=== PATIENT | female | born 1935 | race Caucasian/White ===

== ENCOUNTER 2016-05-04 13:31 | Emergency (ER) | payer OTHER ==
[2016-05-04 13:40] VITALS: BP 128/53; TEMP 99.1; BMI 36.0
--- NOTE | 2016-05-04 14:26 | ED.PDOC ---
General ED Provider: Dr. ARNIE GONSALEZ JR Chief Complaint: Respiratory Complaint Stated Complaint: c/o cough past 2 weeks--was on antibiotics better short time then returned--now has ear pain--no fever--uses o2 all the time and sleeps with bipap at nite-[ End ]99.0 90 20 91% 128/53 05/21[ End ] Time Seen by Physician: 14:25 Mode of Arrival: Wheelchair Information Source: Patient, Family Exam Limitations: No limitations Primary Care Provider: WINSTON PRUETT Nursing and Triage Documentation Reviewed and Agree: No Review of Systems - Review Of Systems Constitutional: Reports: Malaise, Weakness Eyes: Reports: No symptoms Ears, Nose, Mouth, Throat: Reports: Ear pain Respiratory: Reports: Cough (yellow productive) Cardiac: Reports: No symptoms GI: Reports: No symptoms : Reports: No symptoms Musculoskeletal: Reports: No symptoms Skin: Reports: No symptoms Neurological: Reports: No symptoms Endocrine: Reports: No symptoms Hematologic/Lymphatic: Reports: No symptoms All Other Systems: Other Past Medical History - Past Medical History Endocrine: Reports: DM 2 Cardiovascular: Reports: CAD, [place] Respiratory: Reports: COPD Hematological: Reports: None Gastrointestinal: Reports: None Genitourinary: Reports: None Neuro/Psych: Reports: None Musculoskeletal: Reports: None Cancer: Reports: None Last Menstrual Period: hysterectomy - Surgical History General Surgical History: Reports: Hysterectomy, Cholecystectomy, Other (-spot taken off rt breast) - Family History Family History: Reports: None - Social History Smoking Status: Former smoker Hx Substance Use: No Alcohol Screening: None Physical Exam - Physical Exam Appearance: Ill-appearing, Obese Ill-appearing: Moderate Pain Distress: Moderate Eyes: ALFRED, EOMI, Conjunctiva clear ENT: Ears normal, Nose normal, Oropharynx normal Neck: Supple Respiratory: Airway patent, Breath sounds equal, Breath sounds diminished, Respirations nonlabored, Rhonchi, Wheezes Cardiovascular: RRR, Pulses normal, No rub, No murmur GI/: Soft, Nontender, No masses, Bowel sounds normal, No Organomegaly Musculoskeletal: Normal strength, ROM intact, No edema, No calf tenderness Skin: Warm, Dry, Normal color Neurological: Sensation intact, Motor intact, Reflexes intact, Cranial nerves intact, Alert, Oriented Psychiatric: Affect appropriate, Mood appropriate Critical Care Note - Critical Care Note Total Time (mins): 0 Course - Course Vital Signs: Temp Pulse Resp BP Pulse Ox 05/04/16 13:32 99.1 F 90 20 128/53 L 91 L Departure - Departure Time of Disposition: 14:39 Disposition: HOME SELF-CARE Discharge Problem: Bronchitis, Chronic obstructive bronchitis Instructions: Emphysema (ED), Acute Bronchitis (ED) Condition: Good Pt referred to PMD for follow-up: Yes Additional Instructions: Bactrim antibiotic until gone Robitussin AC as needed for cough recheck PMD one to two weeks recheck Prescriptions: Sulfamethoxazole/Trimethoprim [Bactrim Ds 800/160 mg] 1 tab PO Q12HR #14 tablet Guaifenesin/Codeine Phosphate [Robitussin AC Syrup] 10 ml PO Q6H PRN #240 ml PRN Reason: Cough Allergies/Adverse Reactions: Allergies Iodinated Contrast Media - Oral and Adverse Reaction (Verified 05/04/16 13:43) Home Medications: Ambulatory Orders Benazepril HCl 20 mg PO DAILY 05/04/16 Clopidogrel Bisulfate [Clopidogrel] 75 mg PO DAILY 05/04/16 Furosemide [Lasix Tab] 40 mg PO QDAC 05/04/16 Gabapentin [Neurontin] 200 mg PO BID 05/04/16 Glyburide [Diabeta] 10 mg PO BID 05/04/16 Guaifenesin/Codeine Phosphate [Robitussin AC Syrup] 10 ml PO Q6H PRN #240 ml Insulin Glargine,Hum.rec.anlog [Lantus] 30 unit SUBCUT QID 05/04/16 Insulin Lispro [Humalog] 12 unit SQ TID 05/04/16 Pantoprazole Sodium [Protonix] 40 mg PO QDAC 05/04/16 Ropinirole HCl [Requip] 3 mg PO BEDTIME 05/04/16 Simvastatin [Zocor] 40 mg PO BEDTIME 05/04/16 Sulfamethoxazole/Trimethoprim [Bactrim Ds 800/160 mg] 1 tab PO Q12HR #14 tablet 05/04/16
== END 2016-05-04 14:53 | disposition home or self-care (01) ==
LOC: ED 13:31
DX: J44.0 Chronic obstructive pulmonary disease with (acute) lower respiratory infection (principal); J20.9 Acute bronchitis, unspecified; E11.9 Type 2 diabetes mellitus without complications; Z99.81 Dependence on supplemental oxygen; Z87.891 Personal history of nicotine dependence; Z79.01 Long term (current) use of anticoagulants; Z79.899 Other long term (current) drug therapy
CPT/HCPCS: 99282

== ENCOUNTER 2016-07-28 11:41 | Inpatient (IN) ==
--- NOTE | 2016-07-28 12:13 | ED.PDOC ---
General ED Provider: Dr. ARNIE GONSALEZ JR Chief Complaint: Weakness Stated Complaint: weak and dizzy -not peeing right - weight loss of 40lbs over past 2 months-O2 2L--bipap at nite--color pale--no distress [End]denies pain-- weak/dizzy--had recent bout of flu with admit(history not correct- seen in ER not admitted)[End]98.2 77 24 97% 128/55 daughter in law notes THAT PATIENT is discussing feeling of and mother before they (new and unusual) patient states not voiding usual amount despite lasix complains of weight loss 40 pounds past 2 monthsER szkog=754 lb may 04 2016 219 lb jul 28 2016. : cough 2 weeks(yellow productive):Ear pain : DM 2 CAD [place] COPD:(-spot rt breast): Emphysema (ED), Acute Bronchitis (ED)[Bactrim ] [Robitussin AC Syrup] Time Seen by Physician: 12:13 Mode of Arrival: Wheelchair Information Source: Patient Exam Limitations: No limitations Primary Care Provider: WINSTON PRUETT Nursing and Triage Documentation Reviewed and Agree: No Review of Systems - Review Of Systems Constitutional: Reports: Malaise, Weakness Eyes: Reports: No symptoms Ears, Nose, Mouth, Throat: Reports: No symptoms Respiratory: Reports: No symptoms, Other (chronic oxygen) Cardiac: Reports: Edema (swellingin ankles left more than right (note exam)wt 214 today at home"I've lost 40 pounds) GI: Reports: No symptoms : Reports: No symptoms Musculoskeletal: Reports: No symptoms Skin: Reports: No symptoms Neurological: Reports: No symptoms Endocrine: Reports: No symptoms Hematologic/Lymphatic: Reports: No symptoms All Other Systems: Other Past Medical History - Past Medical History Endocrine: Reports: DM 2 Cardiovascular: Reports: CAD, [place] Respiratory: Reports: COPD Hematological: Reports: None Gastrointestinal: Reports: None Genitourinary: Reports: None Neuro/Psych: Reports: None Musculoskeletal: Reports: None Cancer: Reports: None Last Menstrual Period: hysterectomy - Surgical History General Surgical History: Reports: Hysterectomy, Cholecystectomy, Other (-spot taken off rt breast) - Family History Family History: Reports: None - Social History Smoking Status: Former smoker Hx Substance Use: No Alcohol Screening: None Physical Exam - Physical Exam Appearance: Well-appearing, Obese Ill-appearing: Mild Pain Distress: Mild Eyes: ALFRED, EOMI, Conjunctiva clear ENT: Ears normal, Nose normal, Oropharynx normal Neck: Supple Respiratory: Airway patent, Breath sounds clear, Breath sounds equal, Respirations nonlabored Cardiovascular: RRR, Pulses normal, No rub, No murmur GI/: Soft, Nontender, No masses, Bowel sounds normal, No Organomegaly Musculoskeletal: Normal strength, ROM intact, No calf tenderness, Edema (trace pedal edema righ noticably more than left) Skin: Warm, Dry, Normal color Neurological: Sensation intact, Motor intact, Reflexes intact, Cranial nerves intact, Alert, Oriented Interpretation - Radiology Interpretation Radiology Interpretation By: Radiologist Radiology Results: Negative Exam Interpreted: Other (LE DOPPLERS) Radiology Interpretation By: Radiologist Radiology Results: Positive Exam Interpreted: CXR (SUSUPICIOUS R BASILAR INFILTRATE DISC WITH DR PRUETT) - EKG Interpretation Time of EKG #1: 12:32 Rate: Normal Rhythm: Sinus ST Segment: Other (lafb) Physician Notification - Case Discussed Physician Notified: DR PRUETT'S OFFICE CALLED Time of Notification: 14:40 Critical Care Note - Critical Care Note Total Time (mins): 0 Course - Course Hematology/Chemistry: 07/28/16 12:40 07/28/16 12:40 Orders, Labs, Meds: Lab Review 07/28/16 07/28/16 07/28/16 12:40 13:19 14:07 WBC 9.57 RBC 3.93 L Hgb 7.1 L Hct 27.7 L MCV 70.5 L MCH 18.1 L MCHC 25.6 L RDW Coeff of Chuy 20.4 H Plt Count 274 Immature Gran % (Auto) 0.4 Neut % (Auto) 68.9 Lymph % (Auto) 21.5 [place] % (Auto) 5.5 Eos % (Auto) 2.7 Baso % (Auto) 1.0 Reticulocyte % (Auto) 2.52 Immature Gran # (Auto) 0.0 Neut # 6.6 Lymph # 2.1 [place] # 0.5 Eos # 0.3 Baso # 0.1 Polychromasia 1+ Poikilocytosis 3+ Microcytosis 3+ Stomatocytes 1+ Schistocytes 1+ RBC Morph Comment Absolute Retic 0.1000 Retic Hgb Equivalent 15.3 D-Dimer (Manual) 1136.71 Sodium 136 Potassium 4.9 Chloride 98 Carbon Dioxide 30 Anion Gap 12.9 BUN 48 H Creatinine 1.90 H Estimated GFR (MDRD) 26.00 BUN/Creatinine Ratio 25.26 Glucose 136 H Calcium 9.2 Iron 15 L TIBC 560 H % Saturation 3 Unsat Iron Binding 545 H Ferritin 7.49 Total Bilirubin 0.34 AST 19 ALT 18 Alkaline Phosphatase 71 Total Creatine Kinase 87 Troponin I 0.0820 B-Natriuretic Peptide 313 H Total Protein 7.8 Albumin 3.8 Globulin 4.0 Albumin/Globulin Ratio 0.95 Vitamin B12 469 Folate 14.3 Procalcitonin < 0.05 Urine Color Yellow Urine Clarity Clear Urine pH 5.5 Ur Specific [place] <=1.005 Urine Protein Negative Urine Glucose (UA) Negative Urine Ketones Negative Urine Blood Negative Urine Nitrite Negative Urine Bilirubin Negative Urine Urobilinogen 0.2 Ur Leukocyte Esterase Negative Stl Occult Blood (IFOB) Negative Stool Occult Blood #2 No specimen received Stool Occult Blood #3 No specimen received Orders Category Date Time Status ADMIT PATIENT INPATIENT .TO MEDSURG (MONITORED BED) ADMISSION 07/28/16 16: 37 Active EKG-(ED ONLY) Stat CARDIO 07/28/16 12:22 Completed NEBULIZER TREATMENT Routine CARDIO 07/28/16 16:46 Ordered NEBULIZER TREATMENT Stat CARDIO 07/28/16 13:18 Completed OXYGEN Routine CARDIO 07/28/16 16:39 Ordered ACTIVITY .Early Mobilization for VTE Prevention CARE 07/28/16 16:37 Active BLOOD GLUCOSE MONITORING 0630,1100,1700,2100 CARE 07/28/16 16:54 Ordered GIVE HS SNACK 2100 CARE 07/28/16 16:44 Active INTAKE & OUTPUT Q8HR CARE 07/28/16 16:38 Active INTAKE & OUTPUT Q8HR CARE 07/28/16 16:43 Active NPO REMINDER: IMAGING ONCE CARE 07/28/16 14:18 Completed TELEMETRY MONITORING TELE CARE 07/28/16 16:38 Active VITAL SIGNS Q4HR CARE 07/28/16 16:37 Active ADA 1800 SHAHEEN. DIET DIETARY 07/28/16 Dinner Ordered CARDIAC DIET DIETARY 07/28/16 Dinner Ordered HS SNACK DIETARY 07/28/16 Dinner Ordered ED IV/MEDIPORT/POWERPORT .ONCE EMERGENCY 07/28/16 12:22 Active B-TYPE NATRIURETIC PEPTIDE Stat LAB 07/28/16 12:40 Completed BLOOD CULTURE Stat LAB 07/28/16 12:40 Received CBC W/ AUTO DIFF DAILY@0600 LAB 07/29/16 06:00 Ordered CBC W/ AUTO DIFF DAILY@0600 LAB 07/30/16 06:00 Ordered CBC W/ AUTO DIFF DAILY@0600 LAB 07/31/16 06:00 Ordered CBC W/ AUTO DIFF DAILY@0600 LAB 08/01/16 06:00 Ordered CBC W/ AUTO DIFF DAILY@0600 LAB 08/02/16 06:00 Ordered CBC W/ AUTO DIFF DAILY@0600 LAB 08/03/16 06:00 Ordered CBC W/ AUTO DIFF DAILY@0600 LAB 08/04/16 06:00 Ordered CBC W/ AUTO DIFF DAILY@0600 LAB 08/05/16 06:00 Ordered CBC W/ AUTO DIFF DAILY@0600 LAB 08/06/16 06:00 Ordered CBC W/ AUTO DIFF DAILY@0600 LAB 08/07/16 06:00 Ordered CBC W/ AUTO DIFF DAILY@0600 LAB 08/08/16 06:00 Ordered CBC W/ AUTO DIFF DAILY@0600 LAB 08/09/16 06:00 Ordered CBC W/ AUTO DIFF DAILY@0600 LAB 08/10/16 06:00 Ordered CBC W/ AUTO DIFF DAILY@0600 LAB 08/11/16 06:00 Ordered CBC W/ AUTO DIFF DAILY@0600 LAB 08/12/16 06:00 Ordered CBC W/ AUTO DIFF DAILY@0600 LAB 08/13/16 06:00 Ordered CBC W/ AUTO DIFF DAILY@0600 LAB 08/14/16 06:00 Ordered CBC W/ AUTO DIFF DAILY@0600 LAB 08/15/16 06:00 Ordered CBC W/ AUTO DIFF DAILY@0600 LAB 08/16/16 06:00 Ordered CBC W/ AUTO DIFF DAILY@0600 LAB 08/17/16 06:00 Ordered CBC W/ AUTO DIFF Stat LAB 07/28/16 12:40 Completed COMPREHENSIVE METABOLIC PANEL DAILY@0600 LAB 07/29/16 06:00 Ordered COMPREHENSIVE METABOLIC PANEL DAILY@0600 LAB 07/30/16 06:00 Ordered COMPREHENSIVE METABOLIC PANEL DAILY@0600 LAB 07/31/16 06:00 Ordered COMPREHENSIVE METABOLIC PANEL DAILY@0600 LAB 08/01/16 06:00 Ordered COMPREHENSIVE METABOLIC PANEL DAILY@0600 LAB 08/02/16 06:00 Ordered COMPREHENSIVE METABOLIC PANEL DAILY@0600 LAB 08/03/16 06:00 Ordered COMPREHENSIVE METABOLIC PANEL DAILY@0600 LAB 08/04/16 06:00 Ordered COMPREHENSIVE METABOLIC PANEL DAILY@0600 LAB 08/05/16 06:00 Ordered COMPREHENSIVE METABOLIC PANEL DAILY@0600 LAB 08/06/16 06:00 Ordered COMPREHENSIVE METABOLIC PANEL DAILY@0600 LAB 08/07/16 06:00 Ordered COMPREHENSIVE METABOLIC PANEL DAILY@0600 LAB 08/08/16 06:00 Ordered COMPREHENSIVE METABOLIC PANEL DAILY@0600 LAB 08/09/16 06:00 Ordered COMPREHENSIVE METABOLIC PANEL DAILY@0600 LAB 08/10/16 06:00 Ordered COMPREHENSIVE METABOLIC PANEL DAILY@0600 LAB 08/11/16 06:00 Ordered COMPREHENSIVE METABOLIC PANEL DAILY@0600 LAB 08/12/16 06:00 Ordered COMPREHENSIVE METABOLIC PANEL DAILY@0600 LAB 08/13/16 06:00 Ordered COMPREHENSIVE METABOLIC PANEL DAILY@0600 LAB 08/14/16 06:00 Ordered COMPREHENSIVE METABOLIC PANEL DAILY@0600 LAB 08/15/16 06:00 Ordered COMPREHENSIVE METABOLIC PANEL DAILY@0600 LAB 08/16/16 06:00 Ordered COMPREHENSIVE METABOLIC PANEL DAILY@0600 LAB 08/17/16 06:00 Ordered COMPREHENSIVE METABOLIC PANEL Stat LAB 07/28/16 12:40 Completed CREATINE KINASE Stat LAB 07/28/16 12:40 Completed D-DIMER Stat LAB 07/28/16 12:40 Completed FERRITIN Routine LAB 07/28/16 12:40 Completed FOLATE Routine LAB 07/28/16 12:40 Completed IRON AND TIBC Routine LAB 07/28/16 12:40 Completed OCCULT BLOOD, STOOL Stat LAB 07/28/16 14:07 Completed PRBC Transfusion [PACKED CELLS] Stat LAB 07/28/16 16:47 Ordered PROCALCITONIN Stat LAB 07/28/16 12:40 Completed RBC MORPHOLOGY Stat LAB 07/28/16 12:40 Completed RETIC COUNT Routine LAB 07/28/16 12:40 Completed TRANSFERRIN Routine LAB 07/28/16 12:40 Received TROPONIN I Stat LAB 07/28/16 12:40 Completed TYPE AND SCREEN Stat LAB 07/28/16 16:47 Ordered UA [URINALYSIS C & S IF INDICATED] Stat LAB 07/28/16 13:19 Completed VITAMIN B12 Routine LAB 07/28/16 12:40 Completed 0.9 % Sodium Chloride [Saline Flush] MEDS 07/28/16 12:22 Active 1 syr IVF PRN PRN Albuterol Sulfate 0.083% Neb [Albuterol 0.083% Neb] MEDS 07/28/16 13:18 Discontinued 1 vial NEB ONCE STA Insulin Regular, Human [Humulin R] MEDS 07/28/16 16:53 Ordered See Protocol SUBCUT PRN PRN Ipratropium/Albuterol Neb [Duoneb] MEDS 07/28/16 18:00 Ordered 1 vial NEB RTQ4H Methylprednisolone Sod Succ/Pf [Solu-Medrol 125 mg] 75 MEDS 07/28/16 17:00 Ordered mg 0.9 % Sodium Chloride [Sodium Chloride] 50 ml IV Q12HR Sodium Chloride 0.9% [Sodium Chloride] 1,000 ml MEDS 07/28/16 17:00 Active IV 35 mls/hr Sodium Chloride 0.9% [Sodium Chloride] 250 ml MEDS 07/28/16 12:29 Discontinued IV BOLUS RESUSCITATION STATUS Routine OTHERS 07/28/16 16:37 Ordered CHEST, 1V AP ONLY Stat RADS 07/28/16 12:22 Completed ULTRASOUND VENOUS SCAN JAVAN LEGS [U/S VENOUS SCAN JAVAN RADS 07/28/16 15:14 Completed LEGS] Stat Medications Generic Name Dose Route Start Last Admin Trade Name Freq PRN Reason Stop Dose Admin Albuterol/Ipratropium 1 vial 07/28/16 18:00 Duoneb NEB RTQ4H HAROON Sodium Chloride 1,000 mls @ 35 mls/hr 07/28/16 17:00 Sodium Chloride IV .[id number] HAROON Methylprednisolone Sodium 51.2 mls @ 100 mls/hr 07/28/16 17:00 Succinate 75 mg/ Sodium IV Chloride Q12HR HAROON Insulin Human Regular 0 unit 07/28/16 16:53 Humulin R SUBCUT PRN PRN Hyperglycemica Protocol Sodium Chloride 1 syr 07/28/16 12:22 07/28/16 12:47 Saline Flush IVF 1 syr PRN PRN Administration To flush IV Discontinued Medications Generic Name Dose Route Start Last Admin Trade Name Freq PRN Reason Stop Dose Admin Albuterol Sulfate 1 vial 07/28/16 13:18 07/28/16 13:28 Albuterol 0.083% Neb NEB 07/28/16 13:19 1 vial ONCE STA Administration Sodium Chloride 250 mls @ 1,000 mls/hr 07/28/16 12:29 07/28/16 12:46 Sodium Chloride IV 07/28/16 12:43 1,000 mls/hr BOLUS STA Administration Vital Signs: Temp Pulse Resp BP Pulse Ox 07/28/16 11:55 98.2 F 77 24 128/55 L 97 ANNIE Risk Score ANNIE Risk Score: Risk Score Odds of by 30D 0 0.1 (0.1-0.2) 1 0.3 (0.2-0.3) 2 0.4 (0.3-0.5) 3 0.7 (0.6-0.9) 4 1.2 (1.0-1.5) 5 2.2 (1.9-2.6) 6 3.0 (2.5-3.6) 7 4.8 (3.8-6.1) Departure - Departure Time of Disposition: 14:40 Disposition: ADMITTED INPATIENT Discharge Problem: Respiratory failure with hypoxia Qualifiers: Chronicity: acute on chronic Qualifier Code: (J96.21) Acute and chronic respiratory failure with hypoxia Anemia Qualifiers: Anemia type: iron deficiency Iron deficiency anemia type: unspecified iron deficiency Qualifier Code: (D50.9) Iron deficiency anemia, unspecified Condition: Fair Pt referred to PMD for follow-up: Yes Allergies/Adverse Reactions: Allergies diazepam [From Valium] Adverse Reaction (Verified 07/28/16 12:02) Iodinated Contrast Media - Oral and Adverse Reaction (Verified 07/28/16 12:02) Home Medications: Ambulatory Orders Clopidogrel Bisulfate [Clopidogrel] 75 mg PO DAILY 05/04/16 Furosemide [Lasix Tab] 40 mg PO QDAC 05/04/16 Gabapentin [Neurontin] 200 mg PO BID 05/04/16 Glyburide [Diabeta] 10 mg PO BID 05/04/16 Insulin Glargine,Hum.rec.anlog [Lantus] 30 unit SUBCUT QID 05/04/16 Insulin Lispro [Humalog] 12 unit SQ TID 05/04/16 Pantoprazole Sodium [Protonix] 40 mg PO QDAC 05/04/16 RX: Benazepril HCl 20 mg PO DAILY 05/04/16 Ropinirole HCl [Requip] 3 mg PO BEDTIME 05/04/16 Simvastatin [Zocor] 40 mg PO BEDTIME 05/04/16
[2016-07-28] MEDS ORDERED: SODIUM CHLORIDE 250 ML IV STA (12:29)
[2016-07-28 12:45] LABS: BASOPHILS # (AUTO) 0.1 K/uL (0-0.2); EOSINOPHILS # (AUTO) 0.3 K/ul (0.0-0.7); EOSINOPHILS % (AUTO) 2.7 % (0.0-7.0); HEMATOCRIT 27.7 % (37.0-47.0); HEMOGLOBIN 7.1 g/dl (12.0-16.0); IMMATURE GRANULOCYTE % (AUTO) 0.4 % (0.0-5.0); LYMPHOCYTES # (AUTO) 2.1 K/uL (0.60-3.4); LYMPHOCYTES % (AUTO) 21.5 (10.0-50.0); MEAN CORPUSCULAR HEMOGLOBIN 18.1 pg (27.0-31.0); MEAN CORPUSCULAR HGB CONC 25.6 (31.8-35.4); MEAN CORPUSCULAR VOLUME 70.5 fl (81.0-99.0); MONOCYTES # (AUTO) 0.5 K/uL (0.4-2.0); MONOCYTES % (AUTO) 5.5 (0-10); NEUTROPHILS # (AUTO) 6.6 K/ul (2.0-6.9); NEUTROPHILS % (AUTO) 68.9; PLATELET COUNT 274 10^3/uL (140-440); RED BLOOD COUNT 3.93 10^6/ul (4.20-5.40); WHITE BLOOD COUNT 9.57 K/ul (4.6-10.2)
[2016-07-28 13:01] LABS: HYPOCHROMASIA 3+ (NOT PRESENT); POIKILOCYTOSIS 3+ (NOT PRESENT); POLYCHROMASIA 1+ (NOT PRESENT)
--- NOTE | 2016-07-28 13:01 | DI ---
EXAM: Chest one view HISTORY: Chest pain COMPARISON: 09/16/2008 TECHNIQUE: Single view of the chest was performed FINDINGS: Probable right basilar infiltrate, though poorly evaluated on portable radiograph. There is no pleural effusion or pneumothorax. The heart is top normal in size. The mediastinal contour is normal. There are no acute abnormalities of the bones. Cervical spinal fusion hardware. IMPRESSION: Probable right basilar infiltrate is suspicious for pneumonia, though poorly evaluated on portable radiograph. Consider correlation with PA and lateral chest radiographs. Recommend radiog raphic follow-up to resolution. Report faxed at time of dictation.
[2016-07-28 13:02] LABS: ANISOCYTOSIS 3+ (NOT PRESENT); MICROCYTOSIS 3+ (NOT PRESENT); SCHISTOCYTES 1+ (NOT PRESENT); STOMATOCYTES 1+ (NOT PRESENT)
[2016-07-28 13:08] LABS: ALBUMIN 3.8 g/dL (3.4-5.0); ALBUMIN/GLOBULIN RATIO 0.95; ANION GAP 12.9; BILIRUBIN,TOTAL 0.34 mg/dL (0.00-1.20); BUN/CREATININE RATIO 25.26; CALCIUM 9.2 mg/dL (8.2-10.2); CREATININE 1.9 mg/dL (0.60-1.30); POTASSIUM 4.9 mmol/L (3.5-5.10); TOTAL PROTEIN 7.8 g/dL (5.8-8.1); TROPONIN I 0.082 ng/ml (0.0000-0.4000)
[2016-07-28] MEDS ORDERED: ALBUTEROL 0.083% NEB NEB STA (13:18)
[2016-07-28 13:25] LABS: BILIRUBIN,URINE Negative (NEGATIVE); KETONES,URINE Negative (NEGATIVE); LEUKOCYTE ESTERASE ,URINE Negative (NEGATIVE); NITRITE,URINE Negative (NEGATIVE); PH,URINE 5.5 (5-9); PROTEIN,URINE Negative (NEGATIVE); URINE, BLOOD Negative (NEGATIVE)
[2016-07-28 13:31] LABS: ADD URINE MICROSCOPIC NO
[2016-07-28 14:16] LABS: OCCULT BLOOD INTERNAL QC 1 INTERNAL QC VALID; OCCULT BLOOD INTERNAL QC 2 INTERNAL QC VALID; OCCULT BLOOD INTERNAL QC 3 INTERNAL QC VALID; OCCULT BLOOD SAMPLE 1 NEGATIVE (NEGATIVE); OCCULT BLOOD SAMPLE 2 NO SPECIMEN RECEIVED (NEGATIVE); OCCULT BLOOD SAMPLE 3 NO SPECIMEN RECEIVED (NEGATIVE)
[2016-07-28 15:22] LABS: RETICULOCYTE % 2.52 %
[2016-07-28 16:26] LABS: FERRITIN 7.49 ng/mL (4.63-204.00); FOLATE 14.3 ng/mL (3.1-20.5)
--- NOTE | 2016-07-28 16:49 | US ---
EXAM: Bilateral lower extremity venous doppler. HISTORY: Bilateral lower extremity edema. COMPARISON: None available. TECHNIQUE: Multiple grayscale and color doppler images were obtained. FINDINGS: There is normal flow, compressibility and augmentation of flow within the right and left common femoral, greater saphenous, profunda, femoral, popliteal, posterior tibial, anterior tibial a nd peroneal veins. IMPRESSION: No evidence for right or left lower extremity deep vein thrombosis at the levels examined.
[2016-07-28] MEDS ORDERED: SODIUM CHLORIDE 1,000 ML IV SCH (17:00)
[2016-07-28] MEDS: DUONEB NEB SCH ×2 (17:02→22:35)
[2016-07-28 17:59] VITALS: BMI 35.5
[2016-07-28] MEDS: SOLU MEDROL IV SCH ×2 (19:52→23:24)
[2016-07-28] MEDS: SODIUM CHLORIDE IV SCH ×2 (19:52→23:24)
[2016-07-28] MEDS ORDERED: SOLU-MEDROL 125 MG ONE (21:18)
[2016-07-29] MEDS: DUONEB NEB SCH ×5 (01:24→17:05)
[2016-07-29 05:42] LABS: BASOPHILS # (AUTO) 0.1 K/uL (0-0.2); BASOPHILS % (AUTO) 0.5 % (0.0-3.0); HEMATOCRIT 32.4 % (37.0-47.0); IMMATURE GRANULOCYTE % (AUTO) 1.1 % (0.0-5.0); LYMPHOCYTES # (AUTO) 0.6 K/uL (0.60-3.4); MEAN CORPUSCULAR HEMOGLOBIN 20.4 pg (27.0-31.0); MEAN CORPUSCULAR HGB CONC 27.8 (31.8-35.4); MEAN CORPUSCULAR VOLUME 73.5 fl (81.0-99.0); MONOCYTES # (AUTO) 0.1 K/uL (0.4-2.0); MONOCYTES % (AUTO) 0.8 (0-10); NEUTROPHILS # (AUTO) 11.7 K/ul (2.0-6.9); NEUTROPHILS % (AUTO) 92.6; PLATELET COUNT 263 10^3/uL (140-440); RED BLOOD COUNT 4.41 10^6/ul (4.20-5.40); WHITE BLOOD COUNT 12.62 K/ul (4.6-10.2)
[2016-07-29 06:01] LABS: ALBUMIN 3.7 g/dL (3.4-5.0); ALBUMIN/GLOBULIN RATIO 0.95; ANION GAP 14.5; BILIRUBIN,TOTAL 0.61 mg/dL (0.00-1.20); BUN/CREATININE RATIO 26.42; CALCIUM 9.1 mg/dL (8.2-10.2); CREATININE 1.4 mg/dL (0.60-1.30); POTASSIUM 5.5 mmol/L (3.5-5.10); TOTAL PROTEIN 7.6 g/dL (5.8-8.1)
[2016-07-29] MEDS: HUMULIN R SUBCUT PRN ×3 (06:08→17:31)
[2016-07-29] MEDS ORDERED: PROTONIX PO STA (08:18)
[2016-07-29] MEDS ORDERED: LASIX PO STA (08:18)
[2016-07-29] MEDS ORDERED: LASIX TAB PO STA (08:31)
[2016-07-29] MEDS ORDERED: DIABETA PO SCH ×2 (09:00→17:30)
[2016-07-29] MEDS ORDERED: NON-FORMULARY MEDICATION (Benazepril Hcl [Benazepril Hcl] 20 MG) PO SCH (09:00)
[2016-07-29] MEDS ORDERED: LOTENSIN PO SCH (09:00)
[2016-07-29] MEDS ORDERED: HUMALOG SUBCUT SCH (09:00)
[2016-07-29] MEDS ORDERED: NEURONTIN PO SCH (09:00)
[2016-07-29] MEDS ORDERED: PLAVIX PO SCH (09:00)
[2016-07-29] MEDS: LANTUS SUBCUT SCH ×3 (09:25→17:33)
[2016-07-29] MEDS: SOLU MEDROL IV SCH (09:29)
[2016-07-29] MEDS: SODIUM CHLORIDE IV SCH (09:29)
--- NOTE | 2016-07-29 10:30 | DI ---
EXAM: Two x-rays of the chest. Comparison: 07/28/2016. Reason for exam: Short of air, wheezing. FINDINGS: Similar appearing air space opacity in the right lung base with blunting of both costophr enic angles. The cardiac silhouette is unchanged. No pneumothorax. Operative changes are seen aft er ACDF. Impression: Right lower lobe airspace opacity with blunting of the costophrenic angles and flattening of the hem idiaphragms. Imaging findings are consistent with right lower lobe pneumonia with likely underlying chronic obstructive pulmonary disease.
[2016-07-29 11:36] LABS: ABG BASE EXCESS 1 (-2.0-2.0); ABG HCO3 26.7 (22.0-26.0); ABG PCO2 51.8 mmHg (35-45); ABG TCO2 28 (22.0-28.0)
[2016-07-29] MEDS: HUMALOG SUBCUT SCH ×2 (12:12→17:32)
[2016-07-29 17:43] VITALS: BP 130/51; TEMP 98.1
[2016-07-29] MEDS ORDERED: SOLU-MEDROL 125 MG IVP SCH (21:00)
[2016-07-29] MEDS ORDERED: NON-FORMULARY MEDICATION (Ropinirole Hcl [Requip] 3 MG) PO SCH (21:00)
[2016-07-29] MEDS ORDERED: REQUIP PO SCH (21:00)
[2016-07-29] MEDS ORDERED: ZOCOR PO SCH (21:00)
[2016-07-30] MEDS ORDERED: LASIX TAB PO SCH (06:30)
[2016-07-30] MEDS ORDERED: PROTONIX PO SCH (06:30)
--- NOTE | 2016-07-30 09:24 | SSS ---
SOURCE: The source of this information is prior knowledge of Ms. Green, review of her office records, discussion with she; she seems reliable. PATIENT PROFILE: Ms. Green is a 81-year-old female resident of [place]. She was cooperative. CHIEF COMPLAINT: "I am short of breath." BRIEF HISTORY OF PRESENT ILLNESS: Ms. Green has chronic obstructive pulmonary disease and chronic respiratory failure primarily hypoxemic in nature with chronic oxygen supplementation. She has obstructive sleep apnea with CPAP therapy. She has congestive heart failure with previous echo showing diastolic components. She lives with chronic lower extremity edema that comes and goes. She has a host of other medical problems that are contributory to her cardiopulmonary situation and shortness of breath. She says for a month she says she has gradually been getting worse. She says for a week she has even been progressively worse with shortness of breath and cough. She presented to the ER with white count of 9.57, hemoglobin 7.1. Chemistries with a GFR of 26 and unremarkable cardiac enzymes and BNP of 313 only slightly high. Chest x-ray showed probable right basilar infiltrate suspicious for pneumonia. A venous study of her lower extremity showed no evidence of DVT. As she was felt not to be a patient that could undergo a CT angiogram; she had a D. dimer that was 1,136. Blood gases were not done in the ER; sats would periodically drop below 90%. We advised the ER to admit and suggested nebulized bronchodilators and antibiotics. We also advised a unit of blood as she was so symptomatic with shortness of breath. We asked for substrate analysis. She was not sure whether she had any fever at home and she denied hemoptysis. PAST HISTORY: Childhood unremarkable. ALLERGIES/INTOLERANCES: CAPOTEN (BLOAT), CLOPIDOGREL GENERIC (NAUSEA), GLUCOPHAGE (GI UPSET), LORTAB (CRAZY), PROPULSID (GI UPSET), X-RAY DYE ( HEADACHE AND VOMITING) HOME MEDICATIONS: Neurontin 200 mg b.i.d. Lasix 40 mg once a day Glyburide 5 mg twice a day Protonix 40 mg once a day Plavix 75 mg one a day Insulin 30 units q.i.d. Requip 3 mg at h.s. Humalog 12 units t.i.d. Benazepril 20 mg once a day Zocor 40 mg once a day HOSPITALIZATIONS/SURGERIES/PROCEDURES: She is 4, Para 3, AB 1 spontaneous. She has had several EGDs as far back as with Dr. Shepard and one in the year 1999, Dr. Noriega. She had colonoscopy with diverticular findings, Dr. Noriega, the year 1999. Right breast biopsy, benign, Dr. Cabrera, [place], years ago; D & C 1984; ELI and right ovary and bladder repair, Dr. Pool, [facility], 1984; left ovary removed in 1984. C-spine surgery, Dr. Frost, [facility] 10/30/1999. She has admission dates [facility] 07/05 through 07/08/05 for COPD exacerbation; 01/07 through 01/12/08 for COPD exacerbation; 04/18 through 04/24/14 for syncope; 03/17 through 05/09/14 for influenza and respiratory failure; 05/09 through 05/20/14 for TCU; 06/22 through 06/26/15 right hip pain after a fall. FAMILY HISTORY: Psoriasis in a grandson; diabetes in two sisters and brother; unknown female cancer in sister; colon cancer in sister; lung cancer in brother and sister; pancreatic cancer in sister; heart disease in father. HABITS: Smoker age 20, one pack per day stopping in 1994. SOCIAL HISTORY: 1950s, in , remarried in 1974 and that on 08/16. She has three children plus four stepchildren and has lost one son. REVIEW OF SYSTEMS: GENERAL: Her weight has been steady and always overweight. Diabetes - she is not strict on diet and her sugars run high and she does not frequent the office for any labs or care. CHEST: Daily cough. CARDIOVASCULAR: Denies palpitations or chest pain. GI: Has seen no melena, hematochezia or rectal bleeding, has known fatty liver. MUSCULOSKELETAL: She has a history of TIA years ago. PHYSICAL EXAMINATION: VITAL SIGNS: Temperature 97.7, pulse 84, BP 124/54, respirations 20. GENERAL: Appropriate for age, obese white female in no obvious distress. INTEGUMENT: Nontraumatic, no signs of injury. Brawny lower extremities. Eyegrounds are pale. Nonicteric sclerae. Mucous membranes are moist. HEENT: Facial symmetry. Pupils are equal. Extraocular movements are intact. NECK: No mass or thyroid and supple. CHEST: Scattered crackles and soft expiratory wheeze and no dullness at the base to percussion, slightly barreled. CARDIOVASCULAR: S1, S2 without murmur or carotid bruits. Distal pulses are difficult to find. GI: No rebound or guarding. Obese. MUSCULOSKELETAL: No red or swollen joints. Moves four quadrants equal. NEUROLOGIC: [employer] are equal. Facial symmetry. Speech is clear. PSYCHIATRIC: Alert, oriented times three. Mildly agitated and somewhat demanding (particularly related to wanting to go home). She was not ambulated. ASSESSMENT: 0. 81-year-old white female - advanced age 1. Allergies/intolerances - see above 2. Procedural history - see above 3. Family history - see above 4. Obesity - morbid 5. 4, Para 3, AB 1 spontaneous 6. Menopausal 1984 7. History of peptic disease - duodenitis and others on EGDs 8. Diverticular disease on colonoscopy 9. Gastroesophageal reflux symptomatology 10. Hyperlipidemia - Zocor treated 11. Type 2 diabetes - insulin treated and usually not controlled 12. History of migraines 13. Fatty liver by imaging 14. Osteoporosis lost to followup 15. Dupuytren's contracture 16. 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 Hypertension 18. Fibrocystic breast disease 19. Degenerative joint disease - spinal 20. Degenerative disk disease - spinal 21. Chronic back pain 22. TMJ pain 23. Restless legs with treatment 24. COPD 25. Chronic respiratory failure with hypoxemia and oxygen replacement 26. Obstructive sleep apnea with CPAP 27. LVH on echo 28. Congestive heart failure - diastolic on previous echoes 29. Lower extremity edema - chronic multifactorial 30. Gait difficulties - chronic multifactorial 31. Chronic anxiety 32. Chronic depression 33. Peripheral neuropathy 34. Lower extremity radiculopathy 35. Vitamin D deficiency 36. Anticoagulation - aspirin and Plavix (indication TIA and CVA) 37. Hypopotassemia - worse when using diuretics 38. Recurring intermittent falls 39. Chronic kidney disease - Stage 3 40. Intermittent anemia REASON FOR ADMISSION: # Shortness of breath # Right lower lobe infiltrate on chest x-ray # Elevated D. dimer with negative lower extremity scan - unable to do testing for CT angio # COPD exacerbation is possible # Acute worsening of chronic respiratory failure - hypoxemic # Anemia - 7.1 and symptomatic with the shortness of breath and others # Iron deficiency (hemoccult negative) # Poor compliance HOSPITAL COURSE: We gave her one unit of blood and continued neb treatments and gave IV steroids. She felt a little better. When I made rounds, I was intending to add antibiotics and do IV iron; certainly monitor this therapy for a day or two. She in a very noncompliant and demanding manner indicated that she was going to go home. In front of her son and [id number], I told her that such a decision could even result in her untimely . She was otherwise unchanged in her opinion to go home and knowing her for a long time, I did not force her to do AMA. I am hopeful that she will be compliant with a rapid office visit and the medications we are given at discharge. DISCHARGE ASSESSMENT/PROBLEM LIST (CHANGED FROM ADMISSION): # Shortness of breath # Right lower lobe infiltrate on chest x-ray # Elevated D. dimer with negative lower extremity scan - unable to do testing for CT angio # COPD exacerbation is possible # Acute worsening of chronic respiratory failure - hypoxemic # Anemia - 7.1 and symptomatic with the shortness of breath and others # Iron deficiency (hemoccult negative) # Poor compliance PLAN: 1. Discharge against my better judgement 2. Medications: a) As admit b) Omnicef 300 mg two a day #20 c) Medrol dosepak (she should call the office for these scripts to be called to her drugstore tomorrow) 3. [place] in the office on 08/04 and call for time 4. Recommend ADA diet and more compliantly 5. She can always return if she needs CONDITION: IMPROVED PROGNOSIS: POOR MTDD
== END 2016-07-29 20:20 | disposition home or self-care (01) | DRG 189 ==
LOC: ED 11:41 → MEDSURG B 17:12
PROVIDERS: ADMIT Family Medicine; ATTEND Family Medicine
PROC: 30233N1 Transfusion of Nonautologous Red Blood Cells into Peripheral Vein, Percutaneous Approach (ICD-10-PCS; principal; 2016-07-28)
PROC: 30233N1 Transfusion of Nonautologous Red Blood Cells into Peripheral Vein, Percutaneous Approach (ICD-10-PCS; 2016-07-29)
DX: J96.21 Acute and chronic respiratory failure with hypoxia (principal); J44.1 Chronic obstructive pulmonary disease with (acute) exacerbation; R06.02 Shortness of breath; R91.8 Other nonspecific abnormal finding of lung field; R79.1 Abnormal coagulation profile; R53.1 Weakness; R60.0 Localized edema; D50.9 Iron deficiency anemia, unspecified; E11.9 Type 2 diabetes mellitus without complications; Z91.19 Patient's noncompliance with other medical treatment and regimen; Z79.02 Long term (current) use of antithrombotics/antiplatelets; Z79.4 Long term (current) use of insulin
CPT/HCPCS: 36415; 36430; 80053; 81001; 82272; 82550; 82607; 82728; 82746; 82803; 82962; 83540; 83550; 83880; 84145; 84466; 84484; 85008; 85025; 85045; 85379; 86850; 86900; 86922; 87040; 93005; 93010; 94640; 96360; 99284

== ENCOUNTER 2016-09-22 14:15 | Inpatient (IN) | payer OTHER ==
[2016-09-22] MEDS ORDERED: SOLU-MEDROL 125 MG IVP STA (14:28)
[2016-09-22] MEDS ORDERED: XOPENEX 1.25 MG NEB STA (14:29)
[2016-09-22] MEDS ORDERED: DUONEB NEB STA (14:29)
[2016-09-22] MEDS ORDERED: ROCEPHIN 1 GM in SODIUM CHLORIDE 50 ML IV STA (14:29)
[2016-09-22] MEDS ORDERED: ROCEPHIN ONE (14:35)
[2016-09-22 14:39] LABS: ABG PH 7.359 (7.35-7.45)
[2016-09-22 14:41] LABS: ABG BASE EXCESS 11 (-2.0-2.0); ABG PCO2 65.6 mmHg (35-45)
[2016-09-22 14:42] LABS: ABG TCO2 39 (22.0-28.0)
[2016-09-22 15:12] LABS: BASOPHILS # (AUTO) 0.1 K/uL (0-0.2); BASOPHILS % (AUTO) 0.3 % (0.0-3.0); EOSINOPHILS # (AUTO) 0.2 K/ul (0.0-0.7); EOSINOPHILS % (AUTO) 1.4 % (0.0-7.0); HEMATOCRIT 36.7 % (37.0-47.0); HEMOGLOBIN 10.9 g/dl (12.0-16.0); IMMATURE GRANULOCYTE % (AUTO) 0.6 % (0.0-5.0); LYMPHOCYTES # (AUTO) 1.9 K/uL (0.60-3.4); LYMPHOCYTES % (AUTO) 12.6 (10.0-50.0); MEAN CORPUSCULAR HEMOGLOBIN 25.1 pg (27.0-31.0); MEAN CORPUSCULAR HGB CONC 29.7 (31.8-35.4); MEAN CORPUSCULAR VOLUME 84.6 fl (81.0-99.0); MONOCYTES # (AUTO) 0.9 K/uL (0.4-2.0); MONOCYTES % (AUTO) 5.6 (0-10); NEUTROPHILS # (AUTO) 12.3 K/ul (2.0-6.9); NEUTROPHILS % (AUTO) 79.5; PLATELET COUNT 263 10^3/uL (140-440); RED BLOOD COUNT 4.34 10^6/ul (4.20-5.40); WHITE BLOOD COUNT 15.45 K/ul (4.6-10.2)
--- NOTE | 2016-09-22 15:14 | CT ---
EXAM: CT of the chest without contrast History: Cough and wheezing Comparison: Chest radiograph 07/29/2016 Technique: Multiplanar CT images through the thorax were obtained without the administration of IV contrast Findings: Heart size is upper limits of normal. No pericardial effusion. Coronary calcifications. Great vessels are unremarkable. No pathologically enlarged axillary lymph nodes. Small scattered mediastinal lymph nodes. Evaluation for hilar lymph nodes is limited due to the lack of contrast a dministration. There are calcified mediastinal and right hilar lymph nodes. Diffuse bronchial wall thickening. The moderate emphysema. No pneumothorax. There are nodular infiltrates within the lef t lower lobe with the largest measuring 1.1 cm. Mild right lower lobe infiltrate. Mild diffuse thyr oid enlargement. Within the visualized upper abdomen, status post cholecystectomy. Nodular surface contour of the li lukasz and hypertrophy of the caudate lobe. No acute osseous abnormalities. Partially visualized post surgical changes of the cervical spine. Subacute appearing left lateral seventh rib fracture with ca llus formation. Impression: 1. Nodular left lower lobe infiltrates could be infectious/inflammatory or neoplastic etiology. Re commend follow-up chest CT in 1-3 months. 2. Mild right lower lobe infiltrate. 3. Diffuse bronchial wall thickening. 4. Moderate emphysema. 5. Coronary artery disease. 6. Mild diffuse thyroid enlargement. 7. Cirrhotic configuration of the liver.
[2016-09-22] MEDS: SODIUM CHLORIDE 1,000 ML IV SCH (15:33)
[2016-09-22 15:37] LABS: ALANINE AMINOTRANSFERASE 24 U/L (12-78); ALBUMIN 3.4 g/dL (3.4-5.0); ALBUMIN/GLOBULIN RATIO 0.77; ALKALINE PHOSPHATASE 98 U/L (53-141); ANION GAP 11.6; ASPARTATE AMINO TRANSFERASE 19 U/L (15-37); BILIRUBIN,TOTAL 0.27 mg/dL (0.00-1.20); BLOOD UREA NITROGEN 32 mg/dL (7-18); BUN/CREATININE RATIO 19.75; CALCIUM 9.5 mg/dL (8.2-10.2); CARBON DIOXIDE 36 mmol/L (23-31); CHLORIDE 95 mmol/L (98-107); CREATINE KINASE 46 U/L; CREATININE 1.62 mg/dL (0.60-1.30); GLUCOSE 295 mg/dL (82-115); POTASSIUM 4.6 mmol/L (3.5-5.10); SODIUM 138 mmol/L (136-145); TOTAL PROTEIN 7.8 g/dL (5.8-8.1)
--- NOTE | 2016-09-22 16:01 | ED.PDOC ---
General ED Provider: Dr. FINN CAN-ER Chief Complaint: Shortness of Air Stated Complaint: im sob , im coughing up bad stuff--dr krueger called me in [facility] and i took one pill--i know i have pneumonia Time Seen by Physician: 14:20 Mode of Arrival: Walk-In Information Source: Patient, Family Exam Limitations: No limitations Primary Care Provider: WINSTON KRUEGER Nursing and Triage Documentation Reviewed and Agree: Yes Respiratory Complaint Exam - Shortness of Air Complaint/Exam Onset/Duration: several days Symptoms Are: Still present Timing: Intermittent Initial Severity: Moderate Current Severity: Moderate Character: Reports: Dyspnea at rest, Dyspnea on exertion Aggravating: Reports: None Alleviating: Reports: Bronchodilators, Oxygen Associated Signs and Symptoms: Reports: Cough, Chills, Labored breathing, Decreased intake. Denies: Wheezing, Chest pain with cough, Chest pain, Fever, Diaphoresis, Nasal congestion, Dizziness, Calf pain, Calf swelling, Edema, Rapid breathing Related History: Reports: Similar episode History of Healthcare-Acquired Pneumonia: No Pseudomonas Risk Factors: Reports: Chronic Lung Disease Tuberculosis Risk Factors: Reports: Chronic Resp. Faliure Home Oxygen Use: Yes Recent Stress Test: No Recent Echo/LV Function: No Respiratory Distress: Moderate Stridor Present: No Tracheal Deviation: No Subcutaneous Emphysema: No Accessory Muscle Use: Yes Retractions: Supraclavicular Diminished Breath Sounds: Yes Prolonged Expiratory Phase: Yes Unable to Speak Full Sentences: No Fatigue: No Leg Swelling: No Velvet's Sign Present: No Grunting Respirations: No Kussmaul Respirations: No Differential Diagnoses: Pneumonia Quality Indicator For Non-Traumatic Chest Pain/Syncope: EKG Performed Review of Systems - Review Of Systems Constitutional: Reports: No symptoms, Chills Eyes: Reports: No symptoms Ears, Nose, Mouth, Throat: Reports: No symptoms Respiratory: Reports: Cough, Short of air, Wheezing Cardiac: Reports: No symptoms GI: Reports: No symptoms : Reports: No symptoms Musculoskeletal: Reports: No symptoms Skin: Reports: No symptoms Neurological: Reports: No symptoms Endocrine: Reports: No symptoms Hematologic/Lymphatic: Reports: No symptoms All Other Systems: Reviewed and Negative Past Medical History - Past Medical History Previously Healthy: No Endocrine: Reports: DM 2 Cardiovascular: Reports: CAD, [place] Respiratory: Reports: COPD Hematological: Reports: None Gastrointestinal: Reports: None Genitourinary: Reports: None Neuro/Psych: Reports: None Musculoskeletal: Reports: None Cancer: Reports: None Last Menstrual Period: na - Surgical History General Surgical History: Reports: Hysterectomy, Cholecystectomy, Other (-spot taken off rt breast) - Family History Family History: Reports: None - Social History Smoking Status: Former smoker Hx Substance Use: No Alcohol Screening: None Lives: With family - Immunizations Tetanus Shot up to Date: No Physical Exam - Physical Exam Appearance: Well-appearing, No pain distress, Well-nourished Ill-appearing: Mild Eyes: ALFRED, EOMI, Conjunctiva clear ENT: Ears normal, Nose normal, Oropharynx normal Neck: Supple Respiratory: Breath sounds equal, Crackles, Rhonchi Cardiovascular: RRR, Pulses normal, No rub, No murmur GI/: Soft, Nontender, No masses, Bowel sounds normal, No Organomegaly Musculoskeletal: Normal strength, ROM intact, No edema, No calf tenderness Skin: Warm, Dry, Normal color Neurological: Sensation intact, Motor intact, Reflexes intact, Cranial nerves intact, Alert, Oriented Psychiatric: Affect appropriate Interpretation - Radiology Interpretation Radiology Interpretation By: Radiologist Radiology Results: Positive Exam Interpreted: CT Scan - EKG Interpretation Time of EKG #1: 16:02 Rate: Normal Rhythm: Sinus Ectopy: None [place]: NL ST Segment: Normal Physician Notification - Case Discussed Physician Notified: dr krueger Time of Notification: 16:03 Critical Care Note - Critical Care Note Total Time (mins): 0 Course - Course Hematology/Chemistry: 09/22/16 15:01 09/22/16 15:01 Orders, Labs, Meds: Lab Review 09/22/16 09/22/16 14:30 15:01 WBC 15.45 H RBC 4.34 Hgb 10.9 L Hct 36.7 L MCV 84.6 MCH 25.1 L MCHC 29.7 L RDW Coeff of Chuy 21.1 H Plt Count 263 Immature Gran % (Auto) 0.6 Neut % (Auto) 79.5 Lymph % (Auto) 12.6 [place] % (Auto) 5.6 Eos % (Auto) 1.4 Baso % (Auto) 0.3 Immature Gran # (Auto) 0.1 Neut # 12.3 H Lymph # 1.9 [place] # 0.9 Eos # 0.2 Baso # 0.1 Puncture Site R rad O2 Saturation 83.0 L ABG pH 7.359 ABG pCO2 65.6 H ABG pO2 51.0 L* ABG HCO3 37.0 H ABG Total CO2 39 H ABG Base Excess 11 H Frankie Test + O2 Delivery Device Nc Oxygen Liter Flow 2.00 Sodium 138 Potassium 4.6 Chloride 95 L Carbon Dioxide 36 H Anion Gap 11.6 BUN 32 H Creatinine 1.62 H Estimated GFR (MDRD) 31.00 BUN/Creatinine Ratio 19.75 Glucose 295 H Calcium 9.5 Total Bilirubin 0.27 AST 19 ALT 24 Alkaline Phosphatase 98 Total Creatine Kinase 46 Troponin I < 0.0100 B-Natriuretic Peptide 19 Total Protein 7.8 Albumin 3.4 Globulin 4.4 Albumin/Globulin Ratio 0.77 Orders Category Date Time Status ABG DRAW REQUEST Stat CARDIO 09/22/16 14:27 Completed EKG-(ED ONLY) Stat CARDIO 09/22/16 14:27 Completed NEBULIZER TREATMENT Stat CARDIO 09/22/16 14:29 Completed ED IV/MEDIPORT/POWERPORT .ONCE EMERGENCY 09/22/16 14:28 Active ABG Stat LAB 09/22/16 14:30 Completed BLOOD CULTURE Stat LAB 09/22/16 15:01 Received BNP [B-TYPE NATRIURETIC PEPTIDE] Stat LAB 09/22/16 15:01 Completed CBC W/ AUTO DIFF Stat LAB 09/22/16 15:01 Completed CMP [COMPREHENSIVE METABOLIC PANEL] Stat LAB 09/22/16 15:46 Stop Req COMPREHENSIVE METABOLIC PANEL Stat LAB 09/22/16 15:01 Completed CREATINE KINASE Stat LAB 09/22/16 15:01 Completed TROPONIN I Stat LAB 09/22/16 15:01 Completed 0.9 % Sodium Chloride [Saline Flush] MEDS 09/22/16 14:28 Active 1 syr IVF PRN PRN Ceftriaxone Sodium [Rocephin] MEDS 09/22/16 14:35 Discontinued 1 gm .ROUTE .STK-MED ONE Ceftriaxone Sodium [Rocephin] 1 gm MEDS 09/22/16 14:29 Discontinued 0.9 % Sodium Chloride [Sodium Chloride] 50 ml IV ONCE Ipratropium/Albuterol Neb [Duoneb] MEDS 09/22/16 14:29 Discontinued 1 vial NEB ONCE STA Levalbuterol HCl [Xopenex 1.25 mg] MEDS 09/22/16 14:29 Discontinued 1 vial NEB ONCE STA Methylprednisolone Sod Succ/Pf [Solu-Medrol 125 mg] MEDS 09/22/16 14:28 Discontinued 125 [address] IVP ONCE [address] CHEST W/O CONTRAST Stat RADS 09/22/16 14:29 Completed Medications Generic Name Dose Route Start Last Admin Trade Name Freq PRN Reason Stop Dose Admin Sodium Chloride 1 syr 09/22/16 14:28 Saline Flush IVF PRN PRN To flush IV Discontinued Medications Generic Name Dose Route Start Last Admin Trade Name Freq PRN Reason Stop Dose Admin Albuterol/Ipratropium 1 vial 09/22/16 14:29 09/22/16 14:51 Duoneb NEB 09/22/16 14:30 1 vial ONCE STA Administration Ceftriaxone Sodium 1 gm/ 50 mls @ 75 mls/hr 09/22/16 14:29 09/22/16 15:33 Sodium Chloride IV 09/22/16 15:08 75 mls/hr ONCE STA Administration Levalbuterol HCl 1 vial 09/22/16 14:29 Xopenex 1.25 Mg NEB 09/22/16 14:30 ONCE STA Methylprednisolone Sodium Succinate 125 mg 09/22/16 14:28 09/22/16 15:31 Solu-Medrol 125 Mg IVP 09/22/16 14:29 125 mg ONCE STA Administration Vital Signs: Temp Pulse Resp BP Pulse Ox 09/22/16 14:18 98.3 F 99 H 26 H 136/56 L 87 L Departure - Departure Time of Disposition: 16:03 Disposition: ADMITTED INPATIENT Discharge Problem: Respiratory failure with hypoxia Qualifiers: Chronicity: acute on chronic Qualifier Code: (J96.21) Acute and chronic respiratory failure with hypoxia Pneumonia Qualifiers: Pneumonia type: due to unspecified organism Laterality: bilateral Lung location : unspecified part of lung Qualifier Code: (J18.9) Pneumonia, unspecified organism Instructions: Pneumonitis (ED), Community Acquired Pneumonia (ED) Condition: Stable Pt referred to PMD for follow-up: Yes Allergies/Adverse Reactions: Allergies diazepam [From Valium] Adverse Reaction (Verified 09/22/16 14:27) Iodinated Contrast- Oral and IV Dye [Iodinated Contrast Media - Oral and] Adverse Reaction (Verified 09/22/16 14:27) Home Medications: Ambulatory Orders Benazepril HCl 20 mg PO DAILY 05/04/16 Clopidogrel Bisulfate [Clopidogrel] 75 mg PO DAILY 05/04/16 Furosemide [Lasix Tab] 40 mg PO QDAC 05/04/16 Gabapentin [Neurontin] 200 mg PO BID 05/04/16 Glyburide [Diabeta] 10 mg PO BID 05/04/16 Insulin Glargine,Hum.rec.anlog [Lantus] 30 unit SUBCUT QID 05/04/16 Insulin Lispro [Humalog] 12 unit SQ TID 05/04/16 Pantoprazole Sodium [Protonix] 40 mg PO QDAC 05/04/16 Ropinirole HCl [Requip] 3 mg PO BEDTIME 05/04/16 Simvastatin [Zocor] 40 mg PO BEDTIME 05/04/16 Levofloxacin [Levaquin] 500 mg PO DAILY 09/22/16 Disposition Discussed With: Patient, Family
[2016-09-22] MEDS: DUONEB NEB SCH ×2 (17:31→23:20)
[2016-09-22 17:56] VITALS: BMI 33.7
[2016-09-22] MEDS: DIABETA PO SCH (17:56)
[2016-09-22] MEDS: HUMULIN R SUBCUT PRN ×2 (17:57→20:17)
[2016-09-22] MEDS: HUMALOG SUBCUT SCH (17:59)
[2016-09-22] MEDS: LANTUS SUBCUT SCH ×2 (18:01→20:16)
[2016-09-22] MEDS: REQUIP PO SCH (20:15)
[2016-09-22] MEDS: NEURONTIN PO SCH (20:16)
[2016-09-22] MEDS: ZOCOR PO SCH (20:16)
[2016-09-22] MEDS: SOLU-MEDROL 40 MG IVP SCH (20:42)
[2016-09-22] MEDS ORDERED: NON-FORMULARY MEDICATION (Ropinirole Hcl [Requip] 3 MG) PO SCH (21:00)
[2016-09-23 04:38] LABS: BASOPHILS % (AUTO) 0.2 % (0.0-3.0); HEMATOCRIT 32.1 % (37.0-47.0); HEMOGLOBIN 9.7 g/dl (12.0-16.0); IMMATURE GRANULOCYTE % (AUTO) 0.6 % (0.0-5.0); LYMPHOCYTES # (AUTO) 0.9 K/uL (0.60-3.4); LYMPHOCYTES % (AUTO) 6.5 (10.0-50.0); MEAN CORPUSCULAR HEMOGLOBIN 25.2 pg (27.0-31.0); MEAN CORPUSCULAR HGB CONC 30.2 (31.8-35.4); MEAN CORPUSCULAR VOLUME 83.4 fl (81.0-99.0); MONOCYTES # (AUTO) 0.2 K/uL (0.4-2.0); MONOCYTES % (AUTO) 1.2 (0-10); NEUTROPHILS # (AUTO) 12.7 K/ul (2.0-6.9); NEUTROPHILS % (AUTO) 91.5; PLATELET COUNT 264 10^3/uL (140-440); RED BLOOD COUNT 3.85 10^6/ul (4.20-5.40); WHITE BLOOD COUNT 13.85 K/ul (4.6-10.2)
[2016-09-23 04:47] LABS: ANISOCYTOSIS 1+ (NOT PRESENT)
[2016-09-23 04:59] LABS: ALBUMIN/GLOBULIN RATIO 0.79; ANION GAP 11.2; BILIRUBIN,TOTAL 0.18 mg/dL (0.00-1.20); BUN/CREATININE RATIO 24.8; CALCIUM 9.5 mg/dL (8.2-10.2); CREATININE 1.29 mg/dL (0.60-1.30); POTASSIUM 5.2 mmol/L (3.5-5.10); TOTAL PROTEIN 6.8 g/dL (5.8-8.1)
[2016-09-23] MEDS: DUONEB NEB SCH ×4 (05:17→23:41)
[2016-09-23] MEDS: PROTONIX PO SCH (05:57)
[2016-09-23] MEDS: LASIX TAB PO SCH (05:57)
[2016-09-23] MEDS: HUMULIN R SUBCUT PRN ×4 (05:58→20:49)
[2016-09-23] MEDS: LOVENOX SUBCUT SCH (08:33)
[2016-09-23] MEDS: LOTENSIN PO SCH (08:34)
[2016-09-23] MEDS: ZITHROMAX PO SCH (08:34)
[2016-09-23] MEDS: NEURONTIN PO SCH ×2 (08:35→20:44)
[2016-09-23] MEDS: PLAVIX PO SCH (08:35)
[2016-09-23] MEDS: DIABETA PO SCH ×2 (08:36→18:04)
[2016-09-23] MEDS: SOLU-MEDROL 40 MG IVP SCH ×2 (08:37→21:15)
[2016-09-23] MEDS: LANTUS SUBCUT SCH ×4 (08:43→20:43)
[2016-09-23] MEDS: HUMALOG SUBCUT SCH ×3 (08:44→18:03)
[2016-09-23] MEDS ORDERED: NON-FORMULARY MEDICATION (Benazepril Hcl [Benazepril Hcl] 20 MG) PO SCH (09:00)
[2016-09-23 09:17] LABS: IMMATURE RETIC FRACTION 31.1; RETICULOCYTE % 1.82 %
[2016-09-23] MEDS: ROCEPHIN 1 GM in SODIUM CHLORIDE 50 ML IV SCH (09:44)
--- NOTE | 2016-09-23 09:49 | HP ---
SOURCE: The source of this information is prior knowledge of the patient, review of her office records as well as discussion with she and ER personnel and all seem reliable. PATIENT PROFILE: Ms. Green is a 81-year-old female resident of [place]; she was cooperative. CHIEF COMPLAINT: "I am getting short of breath again." BRIEF HISTORY OF PRESENT ILLNESS: Ms. Green has chronic obstructive pulmonary disease with chronic respiratory failure of a hypoxic nature. She uses chronic oxygen. She has obstructive sleep apnea, CPAP titration. She has CHF with previous echo showing diastolic components. She lives with chronic lower extremity edema that comes and goes. She has a host of other medical problems that help to contribute to her diminished quality of life. She was just here 07/28 through 07/29 with similar presentation with increased cough and others. She stayed a very brief period of time and pushed to get home. She did followup in the office and did follow her cough and other issues to completion. She called the office today saying she was more short of breath; she wanted medications and we reluctantly told her she could have a Medrol Dosepak and Levaquin but preferred that she come to the ER. She did come to the ER; she was found to have infiltrates and was felt to be a sick enough individual that she needed to be treated as an inpatient. By the time she got to the floor she was already feeling somewhat better from one dose of IV steroids and nebulized bronchodilator, Duoneb in the Emergency Department. PAST HISTORY: CHILDHOOD: Unremarkable. ALLERGIES/INTOLERANCE: CAPOTEN(BLOATING), CLOPIDOGREL(GENERIC- NAUSEA), GLUCOPHAGE(GI UPSET), LORTAB(CRAZINESS), PROPULSID(GI UPSET), X-RAY DYE( HEADACHE AND VOMITING). HOME MEDICATIONS: 1. Gabapentin 200 mg b.i.d. 2. Lasix 40 mg once a day 3. Glyburide 5 mg twice a day 4. Protonix 40 mg once a day 5. Plavix 75 mg once a day 6. Lantus 30 units q.i.d. 7. Requip 3 mg at bedtime 8. Humalog 12 units t.i.d. 9. Benazepril 20 mg a day 10. Zocor 40 mg a day HOSPITALIZATIONS/SURGERIES/PROCEDURES: She is 4, Para 3, AB 1-spontaneous. She has had several EGDs as far back as [address] Shepard and one in the year 1999, Dr. Noriega. She had colonoscopy with diverticular findings, Dr. Noriega, the last year 1999. Right breast biopsy, Dr. Cabrera, [place], years ago; D & C 1984, ELI, right ovary and bladder repair, Dr. Pool, [facility], 1984. Left ovary removed, 1984. C- spine surgery, Dr. Frost, [facility], 10/30/1999. [facility] admission 07/05 through 07/08/05 for COPD exacerbation; 10/07 through 01/12/08 for COPD exacerbation. 04/18 through 04/24/14 for syncope; 03/17 through 05/09/14 for influenza and respiratory failure; 05/09 through 05/20/14 for TCU; 06/22 through right hip pain after a fall. FAMILY HISTORY: Psoriasis in a grandson; diabetes in two sisters and brother; unknown female cancer in sister, colon cancer in sister; lung cancer in brother and sister; pancreatic cancer in sister; heart disease in father. HABITS: Smoker, age 20, one pack per day, stopping in 1994. SOCIAL HISTORY: in 1949, 1959, remarried in 1974 and that . She has three children plus four stepchildren, has lost one son. REVIEW OF SYSTEMS: GENERAL: She says her weight has been steady and she really notes no fever. INTEGUMENT: Denies rash or open wounds. HEENT: Denies headache, nasal congestion, visual change. NECK: Denies mass and always has some discomfort with extremes of range of motion. CHEST: Increased cough and wheeze; no hemoptysis. CARDIOVASCULAR: Occasional palpitations and frequent lower extremity edema worse at the end of the day. GI: Denies nausea, vomiting, diarrhea, melena or hematochezia. : Denies dysuria, hematuria. MUSCULOSKELETAL: Frequent joint soreness but nothing red or swollen. No recent falls. NEUROLOGIC: Lower extremity numbness and tingling all the time. PSYCHIATRIC: On and off anxiety, depression, nonsuicidal. PHYSICAL EXAMINATION: VITALS: Temperature 98.1, pulse 110, BP 128/59, respirations 20, weight 203 pounds, height 5'5". GENERAL: Obese, white female in no obvious distress, appropriate for age. INTEGUMENT: Nontraumatic, no signs of injury, brawny lower extremity without significant edema in a lying position. Eyegrounds are pale, nonicteric sclerae. Mucous membranes moist. HEENT: Facial symmetry. Pupils equal, round, extraocular movements intact. NECK: No visible lymphadenopathy, thyromegaly, mass seen or felt and supple. CHEST: Barreled, slightly enlarged. Scattered crackles. Soft expiratory wheeze. No dullness at the base. CARDIOVASCULAR: S1, S2 without murmur or carotid bruit. Distal pulses are difficult to find. GI: Obese. Soft. No rebound, guarding, mass or tenderness. MUSCULOSKELETAL: No red, swollen joints, moves four quadrants equal. NEUROLOGIC: Performing Artist are equal. Facial symmetry. Speech is clear. PSYCHIATRIC: Alert and oriented times three. Pleasant, purposeful with intact short and fdc memory. She was not ambulated. ASSESSMENT/PROBLEM LIST: 0. 81-year-old white female of advanced age. 1. Allergies/intolerances see above. 2. Procedural history - see above. 3. Family history - see above. 4. Obesity - morbid. 5. 4, Para 3, AB 1-spontaneous. 6. Menopausal - 1983. 7. History of peptic disease - duodenitis and others on EGD. 8. Diverticular disease on colonoscopy. 9. GE reflux symptomatology. 10. Hyperlipidemia - Zocor treated. 11. Type 2 diabetes - insulin treated usually not controlled. 12. History of migraines. 13. Fatty liver by imaging. 14. Osteoporosis lost to followup. 15. Dupuytren's contractures. 16. 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 17. Hypertension. 18. Fibrocystic breast disease. 19. Degenerative joint disease - spinal. 20. Degenerative disk disease - spinal. 21. Chronic back pain. 22. TMJ pain. 23. Restless legs with treatment. 24. COPD. 25. Chronic respiratory failure with hypoxemia and oxygen replacement. 26. Sleep apnea with CPAP. 27. LVH on echo. 28. CHF - diastolic and chronic. 29. Lower extremity edema - chronic, multifactorial. 30. Gait difficulty - chronic, multifactorial. 31. Chronic anxiety. 32. Chronic depression. 33. Peripheral neuropathy. 34. Lower extremity radiculopathy. 35. Vitamin D deficiency. 36. Anticoagulation - aspirin, Plavix (indication TIA and CVA) 37. Hypotassemia - worse with using diuretics. 38. Recurring intermittent falls. 39. Chronic kidney disease - Stage 3. 40. Intermittent anemia. REASON FOR ADMISSION: # Shortness of breath # Abnormal chest x-ray # COPD exacerbation PLAN: 1. Continue IV antibiotics, Duoneb and I reviewed her home medications for those we want to continue. 2. Labs- daily CBC, BNP. 3. May have to involve PT. 4. Discharge planning at this point will be for home unless there is a reason to change otherwise - once improved. NATHANIEL
[2016-09-23 10:00] LABS: FERRITIN 36.14 ng/mL (4.63-204.00); FOLATE 10.2 ng/mL (3.1-20.5)
[2016-09-23] MEDS ORDERED: TYLENOL PO STA (13:42)
[2016-09-23] MEDS: REQUIP PO SCH (20:44)
[2016-09-23] MEDS: ZOCOR PO SCH (20:44)
[2016-09-24] MEDS: SODIUM CHLORIDE 1,000 ML IV SCH (01:09)
[2016-09-24] MEDS: DUONEB NEB SCH ×4 (05:03→22:50)
[2016-09-24 05:06] LABS: BASOPHILS % (AUTO) 0.2 % (0.0-3.0); HEMATOCRIT 35.2 % (37.0-47.0); HEMOGLOBIN 10.4 g/dl (12.0-16.0); IMMATURE GRANULOCYTE % (AUTO) 0.7 % (0.0-5.0); LYMPHOCYTES # (AUTO) 1.2 K/uL (0.60-3.4); LYMPHOCYTES % (AUTO) 6.6 (10.0-50.0); MEAN CORPUSCULAR HEMOGLOBIN 24.8 pg (27.0-31.0); MEAN CORPUSCULAR HGB CONC 29.5 (31.8-35.4); MEAN CORPUSCULAR VOLUME 83.8 fl (81.0-99.0); MONOCYTES # (AUTO) 0.4 K/uL (0.4-2.0); MONOCYTES % (AUTO) 2.2 (0-10); NEUTROPHILS # (AUTO) 16.1 K/ul (2.0-6.9); NEUTROPHILS % (AUTO) 90.3; PLATELET COUNT 293 10^3/uL (140-440)
[2016-09-24 05:23] LABS: ALBUMIN 3.3 g/dL (3.4-5.0); ALBUMIN/GLOBULIN RATIO 0.79; ANION GAP 12.4; BILIRUBIN,TOTAL 0.17 mg/dL (0.00-1.20); BUN/CREATININE RATIO 30.9; CREATININE 1.1 mg/dL (0.60-1.30); POTASSIUM 5.4 mmol/L (3.5-5.10); TOTAL PROTEIN 7.5 g/dL (5.8-8.1)
[2016-09-24] MEDS: LASIX TAB PO SCH (05:40)
[2016-09-24] MEDS: PROTONIX PO SCH (05:41)
[2016-09-24] MEDS: HUMULIN R SUBCUT PRN ×4 (06:32→20:40)
[2016-09-24] MEDS: NEURONTIN PO SCH ×2 (08:01→20:01)
[2016-09-24] MEDS: DIABETA PO SCH ×2 (08:01→16:52)
[2016-09-24] MEDS: LOTENSIN PO SCH (08:02)
[2016-09-24] MEDS: PLAVIX PO SCH (08:02)
[2016-09-24] MEDS: HUMALOG SUBCUT SCH ×3 (08:02→16:52)
[2016-09-24] MEDS: ZITHROMAX PO SCH (08:02)
[2016-09-24] MEDS: LOVENOX SUBCUT SCH (08:02)
[2016-09-24] MEDS: LANTUS SUBCUT SCH ×4 (08:03→20:00)
[2016-09-24] MEDS: ROCEPHIN 1 GM in SODIUM CHLORIDE 50 ML IV SCH (08:54)
[2016-09-24] MEDS: SOLU-MEDROL 40 MG IVP SCH (09:08)
[2016-09-24] MEDS ORDERED: PREDNISONE PO SCH (17:30)
[2016-09-24] MEDS ORDERED: PREDNISONE ONE (17:42)
[2016-09-24] MEDS: REQUIP PO SCH (20:00)
[2016-09-24] MEDS: ZOCOR PO SCH (20:01)
[2016-09-25] MEDS: DUONEB NEB SCH (05:00)
[2016-09-25 05:27] VITALS: BP 133/76; TEMP 96.8
[2016-09-25 05:27] LABS: BASOPHILS % (AUTO) 0.2 % (0.0-3.0); EOSINOPHILS % (AUTO) 0.1 % (0.0-7.0); HEMATOCRIT 34.7 % (37.0-47.0); HEMOGLOBIN 10.5 g/dl (12.0-16.0); IMMATURE GRANULOCYTE % (AUTO) 0.7 % (0.0-5.0); LYMPHOCYTES # (AUTO) 2.1 K/uL (0.60-3.4); LYMPHOCYTES % (AUTO) 14.6 (10.0-50.0); MEAN CORPUSCULAR HEMOGLOBIN 25.3 pg (27.0-31.0); MEAN CORPUSCULAR HGB CONC 30.3 (31.8-35.4); MEAN CORPUSCULAR VOLUME 83.6 fl (81.0-99.0); MONOCYTES # (AUTO) 0.9 K/uL (0.4-2.0); MONOCYTES % (AUTO) 6.3 (0-10); NEUTROPHILS # (AUTO) 11.3 K/ul (2.0-6.9); NEUTROPHILS % (AUTO) 78.1; PLATELET COUNT 305 10^3/uL (140-440); RED BLOOD COUNT 4.15 10^6/ul (4.20-5.40); WHITE BLOOD COUNT 14.48 K/ul (4.6-10.2)
[2016-09-25 06:21] LABS: ALBUMIN 3.3 g/dL (3.4-5.0); ALBUMIN/GLOBULIN RATIO 0.87; ANION GAP 13.4; BILIRUBIN,TOTAL 0.15 mg/dL (0.00-1.20); BUN/CREATININE RATIO 33.33; CALCIUM 9.8 mg/dL (8.2-10.2); CREATININE 0.96 mg/dL (0.60-1.30); POTASSIUM 4.4 mmol/L (3.5-5.10); TOTAL PROTEIN 7.1 g/dL (5.8-8.1)
[2016-09-25] MEDS: LASIX TAB PO SCH (06:32)
[2016-09-25] MEDS: PROTONIX PO SCH (06:32)
--- NOTE | 2016-09-25 07:28 | DI ---
EXAM: Chest, one-view HISTORY: Cough, shortness of breath FINDINGS: Cardiac and mediastinal contours are normal. Pulmonary vasculature is normal. Lungs are clear. Area of consolidation seen on CT 09/22/2016 on the left is not seen on this study. Atherosc lerotic vascular calcifications. No acute findings of the chest wall. Hardware of the lower cervica l spine. IMPRESSION: No acute cardiopulmonary disease.
[2016-09-25] MEDS ORDERED: PREDNISONE PO SCH ×2 (08:00)
[2016-09-25] MEDS: ZITHROMAX PO SCH (08:31)
[2016-09-25] MEDS: PLAVIX PO SCH (08:31)
[2016-09-25] MEDS: NEURONTIN PO SCH (08:32)
[2016-09-25] MEDS: LOTENSIN PO SCH (08:32)
[2016-09-25] MEDS: HUMALOG SUBCUT SCH (08:34)
[2016-09-25] MEDS: LANTUS SUBCUT SCH (08:36)
[2016-09-25] MEDS: DIABETA PO SCH (08:37)
[2016-09-25] MEDS: LOVENOX SUBCUT SCH (08:40)
[2016-09-25] MEDS ORDERED: COLACE PO SCH (09:00)
--- NOTE | 2016-09-28 13:56 | PN ---
DATE OF SERVICE: 09/23/16 CHIEF COMPLAINT: "I was getting more short of breath." SUBJECTIVE: She came to to the ER on our advice with increasing cough and shortness of breath. Her chest x-ray was suggestive for pneumonia and she has COPD with chronic respiratory failure of a hypoxic nature. She was started on broad spectrum antibiotics, nebulized bronchodilator and steroids; she felt better as the day has gone. OBJECTIVE: V/S: Temperature 98.1, pulse 82, respirations 20, BP 118/55. GENERAL: No obvious distress, pleasant. CHEST: Diminished. Very soft wheeze on expiration. CARDIOVASCULAR: S1, S2 regular without peripheral edema. GI: Obese, nontender. LABS/X-RAYS: White count 13, down from 15, hemoglobin 9.7 down from 10.9; retic count is normal. Iron is low at 16. Total iron binding is normal at 274, percent sat low at 6, ferritin normal at 36. Potassium earlier today was 5.2 dropping to 4.7 with GFR of 40 compared to initial 31. Glucose is elevated at 333 and sliding scale was added. The left lower lobe infiltrate on CT was inflammatory vs even neoplastic; with right middle lobe infiltrate; moderate emphysema and even a cirrhotic appearance of the liver. ASSESSMENT: # Shortness of breath - improved. # Abnormal CT of chest - pneumonia and others to be followed. # COPD exacerbation. # Steroid induced hyperglycemia. # Shortness of breath - improved # Abnormal CT of chest - pneumonia and others to be followed # COPD exacerbation # Steroid induced hyperglycemia # Type 2 diabetes # Hyperpotassemia - improved # Acute renal insufficiency - improved # Chronic kidney disease - Stage 3 # Anemia # Iron deficiency # Sleep apnea - CPAP treated and adjusted while here PLAN: 1. She will need long-term followup with CT. 2. Continue the same IV antibiotics, breathing treatments and steroids at least another day. 3. Maybe wean tomorrow. 4. Labs need to be followed closely. 5. Her CPAP may need further adjustment on orders for discharge. 6. Discharge planning at this point was home. 7. She may need evaluation of concern of her liver. NATHANIEL
--- NOTE | 2016-09-28 14:21 | DS ---
PATIENT PROFILE: Ms. Green is a 81-year-old female resident of [place]; she was cooperative. CHIEF COMPLAINT: "I am getting short of breath again." BRIEF HISTORY OF PRESENT ILLNESS: Ms. Green has chronic obstructive pulmonary disease with chronic respiratory failure of a hypoxic nature. She uses chronic oxygen. She has obstructive sleep apnea, CPAP titration. She has CHF with previous echo showing diastolic components. She lives with chronic lower extremity edema that comes and goes. She has a host of other medical problems that help to contribute to her diminished quality of life. She was just here 07/28 through 07/29 with similar presentation with increased cough and others. She stayed a very brief period of time and pushed to get home. She did followup in the office and did follow her cough and other issues to completion. She called the office today saying she was more short of breath; she wanted medications and we reluctantly told her she could have a Medrol Dosepak and Levaquin but preferred that she come to the ER. She did come to the ER; she was found to have infiltrates and was felt to be a sick enough individual that she needed to be treated as an inpatient. By the time she got to the floor she was already feeling somewhat better from one dose of IV steroids and nebulized bronchodilator, Duoneb in the Emergency Department. PAST HISTORY: CHILDHOOD: Unremarkable. ALLERGIES/INTOLERANCE: CAPOTEN(BLOATING), CLOPIDOGREL(GENERIC- NAUSEA), GLUCOPHAGE(GI UPSET), LORTAB(CRAZINESS), PROPULSID(GI UPSET), X-RAY DYE( HEADACHE AND VOMITING). HOME MEDICATIONS: 1. Gabapentin 200 mg b.i.d. 2. Lasix 40 mg once a day 3. Glyburide 5 mg twice a day 4. Protonix 40 mg once a day 5. Plavix 75 mg once a day 6. Lantus 30 units q.i.d. 7. Requip 3 mg at bedtime 8. Humalog 12 units t.i.d. 9. Benazepril 20 mg a day 10. Zocor 40 mg a day HOSPITALIZATIONS/SURGERIES/PROCEDURES: She is 4, Para 3, AB 1-spontaneous. She has had several EGDs as far back as [address] Shepard and one in the year 1999, Dr. Noriega. She had colonoscopy with diverticular findings, Dr. Noriega, the last year 1999. Right breast biopsy, Dr. Cabrera, [place], years ago; D & C 1984, ELI, right ovary and bladder repair, Dr. Pool, [facility], 1984. Left ovary removed, 1984. C- spine surgery, Dr. Frost, [facility], 10/30/1999. [facility] admission 07/05 through 07/08/05 for COPD exacerbation; 10/07 through 01/12/08 for COPD exacerbation. 04/18 through 04/24/14 for syncope; 03/17 through 05/09/14 for influenza and respiratory failure; 05/09 through 05/20/14 for TCU; 06/22 through right hip pain after a fall. FAMILY HISTORY: Psoriasis in a grandson; diabetes in two sisters and brother; unknown female cancer in sister, colon cancer in sister; lung cancer in brother and sister; pancreatic cancer in sister; heart disease in father. HABITS: Smoker, age 20, one pack per day, stopping in 1994. SOCIAL HISTORY: in 1949, 1959, remarried in 1974 and that . She has three children plus four stepchildren, has lost one son. REVIEW OF SYSTEMS: GENERAL: She says her weight has been steady and she really notes no fever. INTEGUMENT: Denies rash or open wounds. HEENT: Denies headache, nasal congestion, visual change. NECK: Denies mass and always has some discomfort with extremes of range of motion. CHEST: Increased cough and wheeze; no hemoptysis. CARDIOVASCULAR: Occasional palpitations and frequent lower extremity edema worse at the end of the day. GI: Denies nausea, vomiting, diarrhea, melena or hematochezia. : Denies dysuria, hematuria. MUSCULOSKELETAL: Frequent joint soreness but nothing red or swollen. No recent falls. NEUROLOGIC: Lower extremity numbness and tingling all the time. PSYCHIATRIC: On and off anxiety, depression, nonsuicidal. PHYSICAL EXAMINATION: VITALS: Temperature 98.1, pulse 110, BP 128/59, respirations 20, weight 203 pounds, height 5'5". GENERAL: Obese, white female in no obvious distress, appropriate for age. INTEGUMENT: Nontraumatic, no signs of injury, brawny lower extremity without significant edema in a lying position. Eyegrounds are pale, nonicteric sclerae. Mucous membranes moist. HEENT: Facial symmetry. Pupils equal, round, extraocular movements intact. NECK: No visible lymphadenopathy, thyromegaly, mass seen or felt and supple. CHEST: Barreled, slightly enlarged. Scattered crackles. Soft expiratory wheeze. No dullness at the base. CARDIOVASCULAR: S1, S2 without murmur or carotid bruit. Distal pulses are difficult to find. GI: Obese. Soft. No rebound, guarding, mass or tenderness. MUSCULOSKELETAL: No red, swollen joints, moves four quadrants equal. NEUROLOGIC: Lining Inserter are equal. Facial symmetry. Speech is clear. PSYCHIATRIC: Alert and oriented times three. Pleasant, purposeful with intact short and shelter memory. She was not ambulated. ASSESSMENT/PROBLEM LIST: 0. 81-year-old white female of advanced age. 1. Allergies/intolerances see above. 2. Procedural history - see above. 3. Family history - see above. 4. Obesity - morbid. 5. 4, Para 3, AB 1-spontaneous. 6. Menopausal - 1983. 7. History of peptic disease - duodenitis and others on EGD. 8. Diverticular disease on colonoscopy. 9. GE reflux symptomatology. 10. Hyperlipidemia - Zocor treated. 11. Type 2 diabetes - insulin treated usually not controlled. 12. History of migraines. 13. Fatty liver by imaging. 14. Osteoporosis lost to followup. 15. Dupuytren's contractures. 16. 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 17. Hypertension. 18. Fibrocystic breast disease. 19. Degenerative joint disease - spinal. 20. Degenerative disk disease - spinal. 21. Chronic back pain. 22. TMJ pain. 23. Restless legs with treatment. 24. COPD. 25. Chronic respiratory failure with hypoxemia and oxygen replacement. 26. Sleep apnea with CPAP. 27. LVH on echo. 28. CHF - diastolic and chronic. 29. Lower extremity edema - chronic, multifactorial. 30. Gait difficulty - chronic, multifactorial. 31. Chronic anxiety. 32. Chronic depression. 33. Peripheral neuropathy. 34. Lower extremity radiculopathy. 35. Vitamin D deficiency. 36. Anticoagulation - aspirin, Plavix (indication TIA and CVA) 37. Hypopotassemia - worse with using diuretics. 38. Recurring intermittent falls. 39. Chronic kidney disease - Stage 3. 40. Intermittent anemia. REASON FOR ADMISSION: # Shortness of breath # Abnormal chest x-ray # COPD exacerbation HOSPITAL COURSE: Ms. Green was admitted with nebulized Duoneb, IV steroids and Rocephin/ Azithromycin. She remained afebrile. Her breathing improved with less shortness of breath, cough and better stamina and appetite. Her blood sugar did elevate and required addition to her Lasix through sliding scale. Her chest x-ray was repeated on the and was negative. Her laboratories started with a white count of 15, stayed in that range, hemoglobin 10 and stayed in that range with no signs of bleeding. She had a Retic count and Absolute Retic that was normal. A Transferrin that was normal. B12 and Folate normal. Iron of only 16 and percent sat of 6, both low. Ferritin was normal. She is being placed on iron therapy and we will follow; review her previous GI history. She was weaned on the ; tolerated this well and is being discharged to the outpatient arena. Additionally, her chemistry showed initial GFR of 31 and by discharge, it was 56. Potassium tended to run a little high; came down better when the sugar improved. DISCHARGE ASSESSMENT/PROBLEM LIST (CHANGED FROM ADMISSION): # Shortness of breath - primarily an exacerbation of COPD # COPD # COPD exacerbation # Possible pneumonia - if so limited # Anemia with iron deficiency and no signs of bleeding # Iron deficiency # Hyperglycemia - steroid induced # Type 2 diabetes mellitus # Anticoagulation - Plavix (indication history of TIA and CVA) # Chronic respiratory failure - hypoxic PLAN: 1. Discharge after respiratory reestablishes his oxygen needs for rest, activity and CPAP settings. 2. Medications: a) Duonebs q.i.d. #40 with one refill b) Azithromycin 250 p.o. #1 no refill c) Lotensin 20 mg once a day d) Plavix 75 once a day e) Colace 200 once a day f) Lasix once a day g) Neurontin 200 b.i.d. h) Diabeta 10 mg b.i.d. i) Lantus 30 units q.i.d. j) Lisinopril 12 mg t.i.d. k) Sliding scale blood sugar - 100 divided by 20 if greater than 140 with meals l) Protonix 40 mg once a day m) Prednisone 10 mg, 1.5 b.i.d. for three days, one b.i.d. for three days , one b.i.d. for three days, one a day for 10 days; #100 with no refill n) Requip 3 mg at bedtime o) Zocor 40 at bedtime p) Ferrous Sulfate 325 mg one a day #30 with one refill 3. Activity: a) Gradually increase as able 4. a) Diet - ADA b) AHA 5. Followup: a) Dr. uSn in 7 to 10 days - call for that appointment PROGNOSIS: GUARDED CONDITION: Stable, improved MTDD
--- NOTE | 2016-09-29 13:36 | PN ---
DATE OF SERVICE: 09/24/16 CHIEF COMPLAINT: "I was short of breath." SUBJECTIVE: Ms. Green came through the emergency room with increasing shortness of breath and found to have potential pneumonia on top of her asthma, COPD and chronic respiratory failure with hypoxic features. She uses chronic oxygen at home. She was placed on Duonebs, steroids and IV Rocephin/Zithromax. She has improved daily with less shortness of breath, fatigue, better appetite and increased ambulatory abilities. She thus far denies any chest pain or diarrhea. OBJECTIVE: V/S: Temperature 98.3. She has been afebrile. Pulse 88 and has been steady. Blood pressure 125/57 and the same pattern. Respirations 20. 02 sat 89% on room air. GENERAL: No obvious distress. CHEST: Soft wheeze bilaterally. CARDIOVASCULAR: S1, S2 without murmur. Trace ankle edema. GI: No rebound, guarding, mass or tenderness. LABS/X-RAYS: White count 17; up from initial 15. Hemoglobin 10.4 and steady. Potassium 5.4. GFR 48 and improved from 40. Glucose 182 and improved from 333. ASSESSMENT: # Shortness of breath # Abnormal chest x-ray suggestive of possible pneumonia # COPD exacerbation # COPD # Anemia # Iron deficiency # Hyperkalemia # Acute renal insufficiency # Chronic kidney disease, Stage 3 PLAN: 1. Try to wean to p.o. 2. Assess settings for nocturnal CPAP/BIPAP 3. Oxygen tomorrow if discharge is going to occur tomorrow. MTDD
== END 2016-09-25 10:55 | disposition home or self-care (01) | DRG 193 ==
LOC: ED 14:15 → MEDSURG B 16:18
PROVIDERS: ADMIT Family Medicine; ATTEND Family Medicine
DX: J18.9 Pneumonia, unspecified organism (principal); J96.21 Acute and chronic respiratory failure with hypoxia; J44.1 Chronic obstructive pulmonary disease with (acute) exacerbation; R06.2 Wheezing; E11.65 Type 2 diabetes mellitus with hyperglycemia; R91.8 Other nonspecific abnormal finding of lung field; N28.9 Disorder of kidney and ureter, unspecified; N18.3 Chronic kidney disease, stage 3 (moderate); D50.9 Iron deficiency anemia, unspecified; E87.5 Hyperkalemia; G47.33 Obstructive sleep apnea (adult) (pediatric); Z87.891 Personal history of nicotine dependence; Z86.73 Personal history of transient ischemic attack (TIA), and cerebral infarction without residual deficits; Z79.01 Long term (current) use of anticoagulants; Z79.4 Long term (current) use of insulin; Z79.02 Long term (current) use of antithrombotics/antiplatelets
CPT/HCPCS: 36415; 80053; 82550; 82607; 82728; 82746; 82803; 82962; 83540; 83550; 83880; 84132; 84466; 84484; 85008; 85025; 85045; 87040; 93005; 93010; 94640; 94761; 96366; 99284

== ENCOUNTER 2016-10-08 12:34 | Outpatient (CLI) ==
--- NOTE | 2016-10-08 13:02 | DI ---
EXAM: Two-view chest HISTORY: Pneumonia TECHNIQUE: Frontal and lateral views of the chest were obtained. Comparison 09/24/2016. FINDINGS: The heart is stable size. Lungs are clear. The pulmonary vasculature appears normal. T here has been fusion of the lower cervical spine. IMPRESSION: No active cardiopulmonary disease.
== END 2016-10-08 12:35 | disposition home or self-care (01) ==
LOC: RAD 12:34
PROVIDERS: ATTEND Family Medicine
DX: J18.9 Pneumonia, unspecified organism (principal)

== ENCOUNTER 2016-10-22 20:07 | Outpatient (CLI) | END 2016-10-22 20:08 | disposition home or self-care (01) | LOC: AMBL 20:07 | PROVIDERS: ATTEND Family Medicine | DX: R53.1 Weakness (principal); W18.30XA Fall on same level, unspecified, initial encounter ==

== ENCOUNTER 2017-07-04 10:34 | Emergency (ER) | payer OTHER ==
[2017-07-04 10:48] VITALS: TEMP 99; BMI 34.8
--- NOTE | 2017-07-04 11:30 | CT ---
EXAM: CT of the chest without contrast History: Cough. Comparison: Chest CT 09/22/2016 Technique: Multiplanar CT images through the thorax were obtained without the administration of IV c ontrast Findings: Heart size is within normal limits. No pericardial effusion. No change in the diffuse th yroid enlargement. No pathologically enlarged thoracic lymph nodes. Great vessels are unremarkable. Emphysema again noted. Diffuse bronchial wall thickening. Resolved bibasilar lung infiltrates. No developing lung opacities or lung nodules. No pleural fluid and no pneumothorax. Within the visualized upper abdomen, status post cholecystectomy. Nodular surface contour of the yoav er again noted. No acute osseous abnormalities. Postsurgical changes of the cervical spine. Impression: 1. Diffuse bronchial wall thickening but no evidence for pneumonia. 2. Emphysema. 3. Mild diffuse thyroid enlargement.
[2017-07-04] MEDS ORDERED: DECADRON 4 MG/ML SDV IM STA (13:38)
--- NOTE | 2017-07-04 13:43 | ED.PDOC ---
General ED Provider: Dr. PATRIC REILLY Chief Complaint: Respiratory Complaint Stated Complaint: cough, congestion Time Seen by Physician: 10:45 Mode of Arrival: Wheelchair Information Source: Patient Exam Limitations: No limitations Primary Care Provider: WINSTON PRUETT Nursing and Triage Documentation Reviewed and Agree: Yes Reviewed sepsis parameters & appropriate labs ordered?: Yes System Inflammatory Response Syndrome: Pulse >90 BPM Sepsis Protocol: For patient's 13 years and over: Temp is 96.8 and below OR 101 and greater Pulse >90 BPM Resp >20/minute Acutely Altered Mental Status Are patient's symptoms suggestive of a new infection, such as: -Pneumonia -Skin, Soft Tissue -Endocarditis -UTI -Bone, Joint Infection -Implantable Device -Acute Abdominal Infection -Wound Infection -Meningitis -Blood Stream Catheter Infection -Unknown System Inflammatory Response Syndrome: Not Applicable Respiratory Complaint Exam - Respiratory Complaint/Exam Onset/Duration: 3 days Symptoms Are: Resolved Initial Severity: Mild Current Severity: None Location: Nose, Throat, Chest Character: Reports: Non-productive cough Aggravating: Reports: URI Alleviating: Reports: Spontaneous resolution Associated Signs and Symptoms: Reports: URI, Nasal congestion. Denies: Rapid breathing, Dyspnea, Fever, Chills, Chest pain, Pleuritic chest pain, Wheezing, Hemoptysis, Dizziness, Calf pain, Calf swelling, Edema, Hoarseness, Sinus discomfort, Vomiting, Sore throat, Weight loss, Decreased oral intake, Increased thirst, Increased appetite, Increased urination Related History: Reports: Similar episode History of Healthcare-Acquired Pneumonia: No Pulmonary Embolism Risk Factors: Bedrest Cardiac Risk Factors: Reports: CAD, Diabetes, Hypertension Pseudomonas Risk Factors: Reports: Chronic Lung Disease Tuberculosis Risk Factors: Reports: None Status Asthmaticus Risk Factors: Reports: None Home Oxygen Use: Yes Recent Stress Test: No Recent Echo/LV Function: No Current Antibiotic Use: No Current Asthma Medication Use: No Respiratory Distress: None Inadequate Respiratory Effort: No Dysphagia Present: No Stridor Present: No JVD Present: No Accessory Muscle Use: No Retractions: Not Present Diminished Breath Sounds: No Sinus Tenderness: None Grunting Respirations: No Kussmaul Respirations: No Differential Diagnoses: Pneumonia, Bronchitis Review of Systems - Review Of Systems Constitutional: Reports: Chills, Malaise Eyes: Reports: No symptoms Ears, Nose, Mouth, Throat: Reports: No symptoms Respiratory: Reports: Cough Cardiac: Reports: No symptoms GI: Reports: No symptoms : Reports: No symptoms Musculoskeletal: Reports: No symptoms Skin: Reports: No symptoms Neurological: Reports: No symptoms Endocrine: Reports: No symptoms Hematologic/Lymphatic: Reports: No symptoms All Other Systems: Reviewed and Negative Past Medical History - Past Medical History Previously Healthy: No Endocrine: Reports: DM 2 Cardiovascular: Reports: CAD, [place] Respiratory: Reports: COPD Hematological: Reports: None Gastrointestinal: Reports: None Genitourinary: Reports: None Neuro/Psych: Reports: None Musculoskeletal: Reports: None Cancer: Reports: None Last Menstrual Period: n/a - Surgical History General Surgical History: Reports: Hysterectomy, Cholecystectomy, Other (-spot taken off rt breast) - Family History Family History: Reports: None - Social History Smoking Status: Former smoker Hx Substance Use: No Alcohol Screening: None Physical Exam - Physical Exam Appearance: Well-appearing, No pain distress, Well-nourished Eyes: ALFRED, EOMI, Conjunctiva clear ENT: Ears normal, Nose normal, Oropharynx normal Respiratory: Rhonchi Cardiovascular: RRR, Pulses normal, No rub, No murmur GI/: Soft, Nontender, No masses, Bowel sounds normal, No Organomegaly Musculoskeletal: Normal strength, ROM intact, No edema, No calf tenderness Skin: Warm, Dry, Normal color Neurological: Sensation intact, Motor intact, Reflexes intact, Cranial nerves intact, Alert, Oriented Psychiatric: Affect appropriate, Mood appropriate Interpretation - Radiology Interpretation Radiology Interpretation By: Radiologist Radiology Results: No acute changes Exam Interpreted: CT Scan Re-Evaluation - Re-Evaluation Time of Re-Evaluation: 11:00 Status: Improved Vital Signs Stable: Yes Pain Level: 0 Appearance: NAD Lungs: Clear Skin: Warm and Dry Neuro: Alert and Oriented X3 CV: RRR - Re-Evaluation Time of Re-Evaluation: 13:00 Status: Improved Vital Signs Stable: Yes Pain Level: 0 Appearance: NAD Skin: Warm and Dry Neuro: Alert and Oriented X3 CV: RRR (no resp distress while in ED) Critical Care Note - Critical Care Note Total Time (mins): 0 Course - Course Hematology/Chemistry: 07/04/17 10:36 07/04/17 10:55 Orders, Labs, Meds: Lab Review 07/04/17 07/04/17 07/04/17 10:36 10:40 10:55 WBC 11.19 H RBC 4.11 L Hgb 11.3 L Hct 36.9 L MCV 89.8 MCH 27.5 MCHC 30.6 L RDW Coeff of Chuy 14.5 Plt Count 206 Immature Gran % (Auto) 0.6 Neut % (Auto) 78.0 Lymph % (Auto) 12.6 [place] % (Auto) 6.8 Eos % (Auto) 1.4 Baso % (Auto) 0.6 Immature Gran # (Auto) 0.1 Neut # (Auto) 8.7 H Lymph # (Auto) 1.4 [place] # (Auto) 0.8 Eos # (Auto) 0.2 Baso # (Auto) 0.1 Puncture Site L rad O2 Saturation 94.0 L ABG pH 7.431 ABG pCO2 51.4 H ABG pO2 71.0 L ABG HCO3 34.2 H ABG Total CO2 36 H ABG Base Excess 10 H Frankie Test + O2 Delivery Device Nc Oxygen Liter Flow 2.00 Sodium 138 Potassium 5.1 Chloride 96 L Carbon Dioxide 30 Anion Gap 17.1 BUN 20 H Creatinine 0.95 Estimated GFR (MDRD) 57.00 BUN/Creatinine Ratio 21.05 Glucose 173 H Calcium 9.3 Total Bilirubin 0.3 AST 30 ALT 30 Alkaline Phosphatase 72 Total Creatine Kinase 96 Troponin I < 0.0100 Total Protein 7.3 Albumin 3.3 L Globulin 4.0 Albumin/Globulin Ratio 0.83 Procalcitonin 07/04/17 10:55 WBC RBC Hgb Hct MCV MCH MCHC RDW Coeff of Chuy Plt Count Immature Gran % (Auto) Neut % (Auto) Lymph % (Auto) [place] % (Auto) Eos % (Auto) Baso % (Auto) Immature Gran # (Auto) Neut # (Auto) Lymph # (Auto) [place] # (Auto) Eos # (Auto) Baso # (Auto) Puncture Site O2 Saturation ABG pH ABG pCO2 ABG pO2 ABG HCO3 ABG Total CO2 ABG Base Excess Frankie Test O2 Delivery Device Oxygen Liter Flow Sodium Potassium Chloride Carbon Dioxide Anion Gap BUN Creatinine Estimated GFR (MDRD) BUN/Creatinine Ratio Glucose Calcium Total Bilirubin AST ALT Alkaline Phosphatase Total Creatine Kinase Troponin I Total Protein Albumin Globulin Albumin/Globulin Ratio Procalcitonin < 0.05 Orders Category Date Time Status ABG DRAW REQUEST Stat CARDIO 07/04/17 10:37 Completed EKG-(ED ONLY) Stat CARDIO 07/04/17 10:36 Completed ABG Stat LAB 07/04/17 10:40 Completed BLOOD CULTURE (ED ONLY) Stat LAB 07/04/17 10:55 Received CBC W/ AUTO DIFF Stat LAB 07/04/17 10:36 Completed COMPREHENSIVE METABOLIC PANEL Stat LAB 07/04/17 10:55 Completed CREATINE KINASE Stat LAB 07/04/17 10:55 Completed PROCALCITONIN Stat LAB 07/04/17 10:55 Completed TROPONIN I Stat LAB 07/04/17 10:55 Completed Dexamethasone 4 mg/ml Inj [Decadron 4 mg/ml Sdv] MEDS 07/04/17 13:38 Stat 4 mg IM ONCE STA CT CHEST W/O CONTRAST Stat RADS 07/04/17 10:37 Completed Medications Discontinued Medications Generic Name Dose Route Start Last Admin Trade Name Freq PRN Reason Stop Dose Admin Dexamethasone Sodium Phosphate 4 mg 07/04/17 13:38 Decadron 4 Mg/Ml Sdv IM 07/04/17 13:39 ONCE STA Vital Signs: Temp Pulse Resp BP Pulse Ox 07/04/17 10:35 99.0 F 99 H 24 134/47 L 91 L Departure - Departure Time of Disposition: 13:45 (DISCUSSED LABS AND IMAGING WITH PT AND PT"S NURSE AT BEDSIDE COPY OF IMAGING GIVEN TO THE PT AND DISCUSSED ) Disposition: HOME SELF-CARE Discharge Problem: Viral syndrome Instructions: Viral Syndrome (ED) Condition: Good Pt referred to PMD for follow-up: Yes IPMP verified?: No Additional Instructions: Please call your Family Physician as soon as possible to schedule a follow-up appointment. Prescriptions: Amoxicillin 500 mg PO Q8HR #21 tablet Allergies/Adverse Reactions: Allergies diazepam [From Valium] Adverse Reaction (Verified 07/04/17 10:40) Iodinated Contrast- Oral and IV Dye [Iodinated Contrast Media - Oral and] Adverse Reaction (Verified 07/04/17 10:40) Home Medications: Ambulatory Orders Benazepril HCl 20 mg PO DAILY 05/04/16 Clopidogrel Bisulfate [Clopidogrel] 75 mg PO DAILY 05/04/16 Furosemide [Lasix Tab] 40 mg PO DAILY 05/04/16 Gabapentin [Neurontin] 200 mg PO DAILY 05/04/16 Glyburide [Diabeta] 10 mg PO BID 05/04/16 Insulin Glargine,Hum.rec.anlog [Lantus] 30 unit SUBCUT QID 05/04/16 Pantoprazole Sodium [Protonix] 40 mg PO QDAC 05/04/16 Ropinirole HCl [Requip] 3 mg PO BEDTIME 05/04/16 Simvastatin [Zocor] 40 mg PO BEDTIME 05/04/16 Albuterol Sulfate [Proair Hfa] 2 puff IH Q4H 09/22/16 Budesonide/Formoterol Fumarate [Symbicort 160-4.5 Mcg Inhaler] 1 puff IH BID Ferrous Sulfate [Feosol] 325 mg PO DAILY #30 tablet 09/25/16 Ipratropium/Albuterol Neb [Duoneb] 1 vial NEB QID #1 vial.neb 09/25/16 Amoxicillin 500 mg PO Q8HR #21 tablet 07/04/17 Budesonide [Pulmicort 0.5 mg/2 ml] 1 vial NEB RTBID 07/04/17 Cholecalciferol (Vitamin D3) [Vitamin D3] 1,000 unit PO BID 07/04/17 Gabapentin 400 mg PO BEDTIME 07/04/17 Disposition Discussed With: Patient, Family
[2017-07-04 14:51] VITALS: BP 132/58
== END 2017-07-04 14:46 | disposition home or self-care (01) ==
LOC: ED 10:34
DX: B34.9 Viral infection, unspecified (principal); I25.10 Atherosclerotic heart disease of native coronary artery without angina pectoris; I10 Essential (primary) hypertension; E11.9 Type 2 diabetes mellitus without complications; J44.9 Chronic obstructive pulmonary disease, unspecified; I25.2 Old myocardial infarction
CPT/HCPCS: 36415; 80053; 82550; 82803; 84145; 84484; 85025; 87040; 93005; 93010; 96372; 99283

== ENCOUNTER 2018-04-20 16:33 | Inpatient (IN) | payer OTHER ==
[2018-04-20 17:16] VITALS: BMI 36.8
[2018-04-20] MEDS ORDERED: NON-FORMULARY MEDICATION (Gabapentin [Gabapentin] 400 MG) PO SCH (21:00)
[2018-04-20] MEDS ORDERED: NON-FORMULARY MEDICATION (Ropinirole Hcl [Requip] 3 MG) PO SCH (21:00)
[2018-04-20] MEDS ORDERED: DUONEB NEB SCH (21:00)
[2018-04-20] MEDS ORDERED: DOCUSATE SODIUM PO SCH (21:00)
[2018-04-20] MEDS ORDERED: NON-FORMULARY MEDICATION (Simvastatin [Zocor] 40 MG) PO SCH (21:00)
[2018-04-20] MEDS ORDERED: LANTUS SUBCUT SCH (21:00)
[2018-04-20] MEDS: HUMULIN R SUBCUT PRN (22:32)
[2018-04-20] MEDS: SYMBICORT 160-4.5 MCG INHALER IH SCH (22:34)
[2018-04-21] MEDS ORDERED: LASIX IVP STA (02:16)
[2018-04-21] MEDS: PULMICORT 0.5 MG/2 ML NEB SCH ×2 (04:55→23:30)
[2018-04-21] MEDS: DUONEB NEB SCH ×4 (04:55→20:30)
[2018-04-21] MEDS ORDERED: NON-FORMULARY MEDICATION (Pantoprazole Sodium [Protonix] 40 MG) PO SCH (06:30)
[2018-04-21] MEDS ORDERED: INSULIN LISPRO 10 UNIT SQ SCH (06:30)
--- NOTE | 2018-04-21 07:24 | DI ---
Exam: Two views of the chest. Comparison: CT chest performed 07/04/2017. Reason for exam: Shortness of air. FINDINGS: Increasing air space opacities with layering densities in the right lung base. The cardia c silhouette appears prominent in size. No pneumothorax is seen. Operative changes are noted in the cervical spine after anterior cervical discectomy and fusion. Cortical irregularities in the left r ibs consistent with previous fracture. Impression: 1. Right lower lobe, pleural effusion with overlying atelectasis/pneumonia. 2. Mild cardiomegaly
[2018-04-21] MEDS: LANTUS SUBCUT SCH ×2 (09:41→22:50)
[2018-04-21] MEDS: NON-FORMULARY MEDICATION (Ferrous Sulfate [Feosol] 325 MG) PO SCH (09:42)
[2018-04-21] MEDS: GABAPENTIN 200 MG PO SCH (09:42)
[2018-04-21] MEDS: NON-FORMULARY MEDICATION (Benazepril Hcl [Benazepril Hcl] 20 MG) PO SCH (09:43)
[2018-04-21] MEDS: DOCUSATE SODIUM PO SCH ×2 (09:44→20:53)
[2018-04-21] MEDS: NON-FORMULARY MEDICATION (Linagliptin [Tradjenta] 5 MG) PO SCH (09:44)
[2018-04-21] MEDS: SYMBICORT 160-4.5 MCG INHALER IH SCH ×3 (09:45→20:54)
[2018-04-21] MEDS: INSULIN LISPRO 10 UNIT SQ SCH ×2 (11:20→16:37)
[2018-04-21] MEDS: HUMULIN R SUBCUT PRN (11:45)
[2018-04-21] MEDS: NON-FORMULARY MEDICATION (Simvastatin [Zocor] 40 MG) PO SCH (20:53)
[2018-04-21] MEDS: NON-FORMULARY MEDICATION (Ropinirole Hcl [Requip] 3 MG) PO SCH (20:53)
[2018-04-21] MEDS: NON-FORMULARY MEDICATION (Gabapentin [Gabapentin] 400 MG) PO SCH (20:53)
[2018-04-22] MEDS: DUONEB NEB SCH ×4 (05:08→20:10)
[2018-04-22] MEDS: PULMICORT 0.5 MG/2 ML NEB SCH ×2 (05:08→20:10)
[2018-04-22] MEDS: NON-FORMULARY MEDICATION (Pantoprazole Sodium [Protonix] 40 MG) PO SCH (06:02)
[2018-04-22] MEDS: INSULIN LISPRO 10 UNIT SQ SCH ×3 (06:03→16:52)
[2018-04-22] MEDS: GABAPENTIN 200 MG PO SCH (08:17)
[2018-04-22] MEDS: NON-FORMULARY MEDICATION (Ferrous Sulfate [Feosol] 325 MG) PO SCH (08:18)
[2018-04-22] MEDS: NON-FORMULARY MEDICATION (Benazepril Hcl [Benazepril Hcl] 20 MG) PO SCH (08:18)
[2018-04-22] MEDS: NON-FORMULARY MEDICATION (Linagliptin [Tradjenta] 5 MG) PO SCH (08:19)
[2018-04-22] MEDS: SYMBICORT 160-4.5 MCG INHALER IH SCH ×3 (08:23→21:45)
[2018-04-22] MEDS: LANTUS SUBCUT SCH ×2 (08:34→21:09)
[2018-04-22] MEDS: HUMULIN R SUBCUT PRN (11:20)
[2018-04-22] MEDS: DOCUSATE SODIUM PO SCH ×3 (13:34→21:05)
[2018-04-22] MEDS: NON-FORMULARY MEDICATION (Simvastatin [Zocor] 40 MG) PO SCH (21:04)
[2018-04-22] MEDS: NON-FORMULARY MEDICATION (Ropinirole Hcl [Requip] 3 MG) PO SCH (21:07)
[2018-04-22] MEDS: NON-FORMULARY MEDICATION (Gabapentin [Gabapentin] 400 MG) PO SCH (21:07)
[2018-04-23] MEDS ORDERED: PULMICORT 0.5 MG/2 ML NEB ONE ×2 (04:58→19:43)
[2018-04-23] MEDS ORDERED: DUONEB NEB ONE ×4 (04:58→19:43)
[2018-04-23] MEDS: PULMICORT 0.5 MG/2 ML NEB SCH (04:58)
[2018-04-23] MEDS: DUONEB NEB SCH ×4 (04:58→20:45)
[2018-04-23] MEDS: NON-FORMULARY MEDICATION (Pantoprazole Sodium [Protonix] 40 MG) PO SCH (05:56)
[2018-04-23] MEDS: INSULIN LISPRO 10 UNIT SQ SCH ×3 (05:57→17:10)
[2018-04-23] MEDS: NON-FORMULARY MEDICATION (Ferrous Sulfate [Feosol] 325 MG) PO SCH (08:29)
[2018-04-23] MEDS: NON-FORMULARY MEDICATION (Linagliptin [Tradjenta] 5 MG) PO SCH (08:29)
[2018-04-23] MEDS: NON-FORMULARY MEDICATION (Benazepril Hcl [Benazepril Hcl] 20 MG) PO SCH (08:30)
[2018-04-23] MEDS: GABAPENTIN 200 MG PO SCH (08:30)
[2018-04-23] MEDS: SYMBICORT 160-4.5 MCG INHALER IH SCH ×2 (08:31→21:13)
[2018-04-23] MEDS: DOCUSATE SODIUM PO SCH (08:31)
[2018-04-23] MEDS: LANTUS SUBCUT SCH ×2 (08:36→21:10)
[2018-04-23] MEDS ORDERED: TYLENOL PO PRN (19:55)
[2018-04-23] MEDS ORDERED: CAFFEINE PO PRN (19:55)
[2018-04-23] MEDS ORDERED: ASPIRIN PO PRN (19:55)
[2018-04-23] MEDS ORDERED: VISTARIL INJ IM PRN (20:19)
[2018-04-23] MEDS ORDERED: ATROPINE SULFATE PFS IVP PRN (20:19)
[2018-04-23] MEDS ORDERED: NITROSTAT SL PRN (20:19)
[2018-04-23] MEDS ORDERED: VITAMIN D ONE (20:37)
[2018-04-23] MEDS: DIABETA PO SCH (20:56)
[2018-04-23] MEDS ORDERED: NON-FORMULARY MEDICATION (Gabapentin [Gabapentin] 400 MG) PO SCH (21:00)
[2018-04-23] MEDS: ZOCOR PO SCH (21:00)
[2018-04-23] MEDS: COLACE PO SCH (21:00)
[2018-04-23] MEDS ORDERED: NON-FORMULARY MEDICATION (Cholecalciferol (Vitamin D3) [Vitamin D3] 1,000 UNIT) PO SCH (21:00)
[2018-04-23] MEDS: REQUIP PO SCH (21:00)
[2018-04-23] MEDS: PROAIR HFA IH SCH (21:14)
[2018-04-24] MEDS: PROAIR HFA IH SCH ×4 (01:55→11:59)
[2018-04-24] MEDS: DUONEB NEB SCH ×4 (05:04→19:30)
[2018-04-24] MEDS ORDERED: DUONEB NEB ONE (05:04)
[2018-04-24] MEDS: PROTONIX PO SCH (05:29)
[2018-04-24] MEDS: HUMALOG SUBCUT SCH ×3 (05:33→16:43)
[2018-04-24] MEDS ORDERED: PULMICORT 0.5 MG/2 ML NEB SCH (06:00)
[2018-04-24] MEDS ORDERED: ASPIRIN EC PO SCH (08:00)
[2018-04-24] MEDS: SYMBICORT 160-4.5 MCG INHALER IH SCH ×2 (08:20→21:29)
[2018-04-24] MEDS: LASIX TAB PO SCH (08:21)
[2018-04-24] MEDS: COLACE PO SCH ×2 (08:21→21:29)
[2018-04-24] MEDS: NEURONTIN PO SCH ×3 (08:21→21:29)
[2018-04-24] MEDS: TRADJENTA PO SCH (08:21)
[2018-04-24] MEDS: PLAVIX PO SCH (08:21)
[2018-04-24] MEDS: DIABETA PO SCH ×2 (08:21→21:29)
[2018-04-24] MEDS: VITAMIN D PO SCH ×2 (08:22→21:28)
[2018-04-24] MEDS: LOTENSIN PO SCH (08:22)
[2018-04-24] MEDS: FERROUS SULFATE PO SCH (08:22)
[2018-04-24] MEDS: LANTUS SUBCUT SCH ×2 (08:23→21:29)
[2018-04-24] MEDS ORDERED: NON-FORMULARY MEDICATION (Ferrous Sulfate [Feosol] 325 MG) PO SCH (09:00)
[2018-04-24] MEDS ORDERED: NON-FORMULARY MEDICATION (Benazepril Hcl [Benazepril Hcl] 20 MG) PO SCH (09:00)
[2018-04-24] MEDS ORDERED: SOLU-MEDROL 125 MG IVP STA ×4 (10:55→23:59)
--- NOTE | 2018-04-24 13:15 | RS.OTINEVL ---
Subjective - Patient information Date of Evaluation: 04/24/18 Date of Arrival on Unit: 04/20/18 Admitted From:: Home Usual Living Arrangement: Alone Living Arrangement Comments: son checks on her frequently Home Environment: House, Stairs (few), No rail Medical History: Hypertension, CVA/TIA, COPD, Diabetes, CHF, Arthritis (OA, RA) Medical History Comments:: asthma, migraine, hiatal hernia Surgical History: Cholecystectomy, Hysterectomy Medications: see chart Subjective Information/ Patient Comments:: "When I sit here for a long time, I get so weak." - Level of function Prior to this admission, the patient could do the following:: Independent ADL's , Independent Ambulation Abilities prior to this admission: Pt was living at home alone. Pt has a caregiver come Tuesday through Tuesday for 3 hours to help clean, do laundry, help her with a bath. Current Level of Function: Partially Dependent Current Equipment Used at Home: O2 on 3Liters, Rolling walker. Pain Assessment - Pain Pain Score: 0 Interventions - Objective Patient Orientation: Person, Place, Time, Situation Current Interventions: IV's, Oxygen Observation: Pt is short of breath with activity. Pt is weak and requires a rolling walker to ambulate with at this time. Pt leans on the RW while she sits on the BSC over the toilet. Interventions - ROM Right Upper Extremity AROM: WFL's Left Upper Extremity AROM: WFL's - Strength Right Upper Extremity Strength: Mild Weakness Left Upper Extremity Strength: Mild Weakness - Sensation Right Upper Extremity Sensation: Intact/Normal Left Upper Extremity Sensation: Intact/Normal Balance - Sitting Balance Static Sitting Balance: Fair Dynamic Sitting Balance: Fair - Standing Balance Static Standing Balance: Fair Dynamic Standing Balance: Fair ADL Skills - Self Feeding Self Feeding: Independent - Grooming Grooming: Min Assist - Bathing Bathing UE: Not Tested Bathing LE: Not Tested - Dressing Dressing UE: CGA Dressing LE: Min Assist - Toilet Management Toileting Management: Min Assist Functional Mobility - Bed Mobility Rolling R/L: Not Tested Scooting: Not Tested Supine to Sit: Not Tested Sit to Supine: Not Tested - Transfers Sit to Stand: CGA Stand to Sit: Min Assist Stand Pivot Transfers: Min Assist - Ambulation Weight Bearing Status: FWB Assistive Device Used: Rolling Walker Assistance needed with Ambulation: 1 person assist - Safety Awareness Safety Awareness: Fair MANNY INDEX SCORE: . Additional Treatment Performed - Time with patient Length of Evaluation: 30 Total treatment time: 31 Activities Patient Interests:: Reading Books/Magazines, Watching Television, Visiting/ Socializing Patient Education Patient Education: Education of diagnosis, Education of Plan of Care Teaching Recipient: Patient Teaching Methods: Discussion Assessment Problem List:: Decreased level of function, Requires training/education, Decreased safety/Risk of falls, Weakness Rehab Potential: Good Further Therapy Indicated?: Yes Candidate for Swing Bed for Therapy Services?: yes Evaluation Complexity: HISTORY: Medium, EXAM OF BODY SYSTEMS: Medium, CLINICAL DECISION MAKING: Medium Short Term Goals - Goals GOAL 1: Pt to increase BUE strength to 4/5. Goal to be met by: 04/28/18 GOAL 2: Pt to increase dyn. std. balance too Fair+. Goal to be met by: 04/28/18 GOAL 3: Pt to increase activity tolerance to 8 minutes with rests PRN. Goal to be met by: 04/28/18 Jail Goals GOAL 1: Pt to increase BUE strength to 4+/5. Goal to be met by: 05/03/18 GOAL 2: Pt to increase dyn. std. balance too Good. Goal to be met by: 05/03/18 GOAL 3: Pt to increase activity tolerance to 15 minutes with rests PRN. Goal to be met by: 05/03/18 Plan Plan of Care: Therapeutic EX, Neuromuscular Re-Educ, Therapeutic Activity, Self- Care/Home Management Frequency of Treatment: 1-2 X day, as tolerated Duration of Treatment: 2 Weeks Anticipated Discharge Destination: Home Treatment Diagnosis (ICD 10 Codes): M62.81 Muscle weakness. Has the Physician been added for Co-signature?: Yes
[2018-04-24] MEDS ORDERED: LASIX IVP STA ×2 (13:26→22:42)
--- NOTE | 2018-04-24 13:32 | RS.PTINEVL ---
Subjective - Patient information Date of Evaluation: 04/24/18 Date of Arrival on Unit: 04/20/18 Admitted From:: Home Diagnosis: acute resp failure, anemia Usual Living Arrangement: Alone Living Arrangement Comments: son checks on her frequently Home Environment: House, Stairs (few), No rail Medical History: Hypertension, CVA/TIA, COPD, Diabetes, CHF, Arthritis (OA, RA) Medical History Comments:: asthma, migraine, hiatal hernia Surgical History: Cholecystectomy, Hysterectomy Medications: see chart Subjective Information/ Patient Comments:: pt states that she is going to get blood today. States "I am not making blood" States she would like to try to walk. - Level of function Prior to this admission, the patient could do the following:: Independent ADL's , Independent Ambulation Abilities prior to this admission: pt amb short distances in the home, has a walker but does not use it. Current Level of Function: Partially Dependent Current Equipment Used at Home: O2, walker. Interventions - Objective Patient Orientation: Person, Place, Time Current Interventions: IV's, Oxygen (3 liters O2), Telemetry Observation: pt with edema BLE non pitting Range of Motion - ROM Right Upper Extremity AROM: WFL's Left Upper Extremity AROM: WFL's Right Lower Extremity AROM: WFL's Left Lower Extremity AROM: WFL's Muscle Strength - Muscle Strength Right Upper Extremity Strength: Mild Weakness (grossly 4-/5) Left Upper Extremity Strength: Mild Weakness (grossly 4-/5) Right Lower Extremity Strength: Mild Weakness (hip flex 3+/5, knee flex/ext 4-/5 , ankle Df/PF 4-/5) Left Lower Extremity Strength: Mild Weakness (hip flex 3+/5, knee flex/ext 4-/5 , ankle Df/PF 4-/5) Sensation - Sensation Right Upper Extremity Sensation: Intact/Normal Left Upper Extremity Sensation: Intact/Normal Right Lower Extremity Sensation: Impaired Left Lower Extremity Sensation: Impaired (n/t B LE) Palpation Palpation Findings: None/Normal Balance - Sitting Balance and Reactions Static Sitting Balance: Fair Dynamic Sitting Balance: Poor Sitting Equilibrium Reactions: Delayed Left, Delayed Right Sitting Protective Reactions: Delayed Left, Delayed Right - Standing Balance and Reactions Static Standing Balance: Poor Dynamic Standing Balance: Poor Standing Equilibrium Reactions: Delayed Left, Delayed Right Standing Protective Reactions: Delayed Left, Delayed Right Functional Mobility - Bed Mobility Comments:: pt seen sitting up in chair - Transfers Sit to Stand: CGA, Min Assist Stand to Sit: CGA Comments:: on/off commode CGA to min x 1, pt performed hygeine with only assist to hand implements. - Safety Awareness Safety Awareness: Fair MANNY INDEX SCORE: n/a Ambulation - Ambulation Assistive Device Used: Rolling Walker Orthotic/Prosthetic Device: No Distance: 20ft x 2 Assistance needed with Ambulation: CGA, Min Assist Quality of Ambulation: pt amb with decreased step length and flexed posture. pt is somewhat impulsive due to anxiety and SOA. Gait Deviations: Forward posture, Short stride, Deviates from path Factors Affecting Ambulation: Decreased Balance, Breathing/O2 Saturation, Weakness, Dizziness, Decreased Safety, Limited Endurance, Limited Sensation Treatment time - Units charged Gait trainin - Time with patient Length of Evaluation: 18 Total treatment time: 31 Patient Education - Education Patient Education: Activity Modification, Education of Plan of Care Teaching Recipient: Patient Teaching Methods: Discussion Comments: discussion regarding POC and pursed lip breathing. Assessment - Assessment Problem List:: Decreased level of function, Requires training/education, Decreased safety/Risk of falls, Weakness Rehab Potential: Good Further Therapy Indicated?: Yes Candidate for Swing Bed for Therapy Services?: pt may be a candidate for swing bed for therapy due to lives alone and was independent short distances prior to admit. Evaluation Complexity: HISTORY: High (COPD, CHF, CVA, HTH, DM,OA, RA, ), EXAM OF BODY SYSTEMS: Medium (SOA, strength, balance, transfers, gait, posture), CLINICAL PRESENTATION: Medium, CLINICAL DECISION MAKING: Medium Short Term Goals GOAL #1: pt demonstrate independence with rolling in bed Goal to be met by: 04/26/18 GOAL #2: pt transfer sup to/from sit CGA to min, sit to/from stand CGA Goal to be met by: 04/26/18 GOAL #3: pt amb with rwx 50ft with O2 with CGa with no LOB Goal to be met by: 04/26/18 GOAL #4: Improve BLE strength 4/5 Goal to be met by: 04/26/18 Senior Technical Editor Goals GOAL #1: pt transfer sup to/from sit CGA sit to/from stand SBA Goal to be met by: 04/28/18 GOAL #2: pt amb functional household distances with rwx and O2 SBA Goal to be met by: 04/28/18 GOAL #3: pt with improved dyn stand balance fair + Goal to be met by: 04/28/18 Plan Plan of Care: Therapeutic EX, Therapeutic Activity Other:: gait training Frequency of Treatment: 1-2 X day, as tolerated Duration of Treatment: 1 Week Anticipated Discharge Destination: Home Treatment Diagnosis (ICD 10 Codes): R26.2 difficulty walking. R26.81 balance impaired. M62.81 muscle weakness Has the Physician been added for Co-signature?: Yes
[2018-04-24] MEDS ORDERED: PROAIR HFA IH PRN (15:14)
[2018-04-24] MEDS: REQUIP PO SCH (21:28)
[2018-04-24] MEDS: ZOCOR PO SCH (21:28)
[2018-04-24] MEDS ORDERED: ALBUTEROL 0.083% NEB NEB ONE (22:42)
[2018-04-24] MEDS ORDERED: ALBUTEROL 0.083% NEB NEB STA ×2 (22:44→23:10)
--- NOTE | 2018-04-24 23:31 | DI ---
Exam: Chest one-view History: Shortness of breath FINDINGS: Technically inhibited by portable technique and body habitus limitations. Normal cardiome diastinal contours. Bilateral pleural effusions are suspected, small to moderate. The upper lungs a re clear. The pulmonary vasculature is mildly prominent but technique accentuated. No acute chest w all abnormality. Impression: Small to moderate pleural effusions are suspected. Probable interval progression on the left compared with 04/20/2018. No acute findings otherwise.
[2018-04-25] MEDS ORDERED: VERSED IVP STA (00:30)
[2018-04-25] MEDS ORDERED: SUBLIMAZE IVP STA (00:31)
[2018-04-25] MEDS ORDERED: DIPRIVAN 20 ML VIAL IVP STA (00:32)
[2018-04-25] MEDS ORDERED: ANECTINE IVP STA (00:33)
[2018-04-25] MEDS ORDERED: NORCURON IVP STA (00:34)
[2018-04-25] MEDS: DIPRIVAN 100 ML VIAL 1,000 MG in PREMIX INFUSION 100 ML VIAL 1 VIAL IV SCH ×6 (00:45→18:30)
[2018-04-25] MEDS ORDERED: DIPRIVAN 100 ML VIAL 100 ML IV ONE ×6 (00:48→14:05)
--- NOTE | 2018-04-25 01:18 | DI ---
EXAM: Chest, single view, 04/25/2018 HISTORY: Intubation COMPARISON: 04/24/2018 FINDINGS / IMPRESSION: Cardiomediastinal contours appear stable. Endotracheal tube appears well pos itioned. Bilateral pleural effusions. There is overlying atelectasis and/or pneumonia. No pneumoth orax. Pulmonary aeration appears improved since the prior study.
--- NOTE | 2018-04-25 01:35 | ED.PDOC ---
Procedures - Intubation Time of Intubation: 12:40 (RSI with cricoid pressure per RT) Medications: Yes: Norcuron (Norcuron 8mg IVP wasted 2mg), Succinylcholine ( Anectine 100mg IVP @12:40 wasted 100mg), Versed (Versed 2.5mg ivp @ 12:39 , Wasted 2.5mg with Michelle RN-ER), Propofol (Propofol 40mg IVP @12:40 Wasted 160mg), Other (Fentanyl 50mcg ivp@ 12:40am, Wasted 50mcg with Michelle RN -ER ) Type of Tube Used: Endotracheal Tube Size: 7 Cricoid Pressure Used: Yes Tube Pacheco Used: Yes Position of Tube at Lip: 20 cm Number of Attempts: 1 Suction Used: No Glidescope Used: No CO2 Detector Used: Yes Lung Sounds Equal Bilaterally: Yes Intubation Complications: Present: No complications Tube Inserted By: Gabriel Rojas CRNA Tube Placement Verified by X-ray: Yes - IV/Art Line Insertion Location: RT wrist Type of Line: Peripheral IV Invasive Line/IV Catheter Gauge: 22 Number of Attempts: 1 Blood Return Positive: Yes Invasive Line/IV Flushes Without Difficulty: Yes Conscious Sedation - Pre-op Assessment Weight: 221 lb 12.56 oz Surgical History: hysterectomy--spot taken off rt breast--gallbladder - Medical History Past Medical History: Diabetes, [place], COPD, CAD
[2018-04-25] MEDS: DUONEB NEB SCH ×3 (05:10→22:00)
[2018-04-25] MEDS: SOLU-MEDROL 125 MG IVP SCH ×5 (06:08→21:19)
[2018-04-25] MEDS: PROTONIX PO SCH (06:09)
[2018-04-25] MEDS: LASIX TAB PO SCH (06:10)
[2018-04-25] MEDS: HUMALOG SUBCUT SCH ×3 (06:12→17:50)
[2018-04-25] MEDS: LACTATED RINGERS 1,000 ML IV SCH (06:55)
[2018-04-25] MEDS: ALBUTEROL 0.083% NEB NEB SCH ×4 (08:53→17:08)
[2018-04-25] MEDS: COLACE PO SCH ×2 (08:59→21:32)
[2018-04-25] MEDS: DIABETA PO SCH ×2 (08:59→21:32)
[2018-04-25] MEDS: FERROUS SULFATE PO SCH (09:00)
[2018-04-25] MEDS: LOTENSIN PO SCH (09:00)
[2018-04-25] MEDS: PLAVIX PO SCH (09:01)
[2018-04-25] MEDS: TRADJENTA PO SCH (09:01)
[2018-04-25] MEDS: NEURONTIN PO SCH ×3 (09:01→21:32)
[2018-04-25] MEDS: VITAMIN D PO SCH ×2 (09:02→21:33)
[2018-04-25] MEDS: SYMBICORT 160-4.5 MCG INHALER IH SCH ×2 (09:04→21:33)
[2018-04-25] MEDS: LANTUS SUBCUT SCH ×2 (09:06→21:19)
[2018-04-25] MEDS: LOVENOX SUBCUT SCH (09:40)
--- NOTE | 2018-04-25 09:44 | DI ---
EXAM: CHEST FRONTAL VIEW HISTORY: Intubation. COMPARISON: 04/25/2018 FINDINGS: There is an endotracheal tube present ending just below the level of the clavicles. Nasog astric tube ends over the left upper abdominal quadrant. Stable mediastinum. Atherosclerotic diseas e. There is diffuse, chronic appearing interstitial accentuation. Lungs are hyperinflated and there is relative lucency of the lung zones suggesting pulmonary emphysema. No obvious consolidated pneum onia or active congestive heart failure. IMPRESSION: 1. Endotracheal tube position appears appropriate radiographically.
[2018-04-25] MEDS ORDERED: LASIX IVP STA (15:40)
[2018-04-25] MEDS ORDERED: LASIX ONE (15:47)
[2018-04-25] MEDS ORDERED: ALBUTEROL 0.083% NEB NEB PRN (17:27)
[2018-04-25] MEDS: ALBUTEROL 0.083% NEB NEB PRN ×2 (19:55→23:55)
[2018-04-25] MEDS: LASIX IVP SCH (21:19)
[2018-04-25] MEDS: REQUIP PO SCH (21:33)
[2018-04-25] MEDS: ZOCOR PO SCH (21:33)
[2018-04-26] MEDS: DUONEB NEB SCH ×6 (02:00→21:24)
[2018-04-26] MEDS: ALBUTEROL 0.083% NEB NEB PRN (04:01)
[2018-04-26] MEDS: LACTATED RINGERS 1,000 ML IV SCH (04:06)
[2018-04-26] MEDS: SOLU-MEDROL 125 MG IVP SCH ×3 (04:39→21:28)
[2018-04-26] MEDS: PROTONIX PO SCH (06:10)
[2018-04-26] MEDS: HUMALOG SUBCUT SCH ×3 (06:11→16:54)
--- NOTE | 2018-04-26 09:02 | DI ---
EXAM: Single view of the chest. History: Extubation Comparison: Chest radiograph 04/25/2018 Findings: Interval removal of endotracheal tube and nasogastric tube. Heart size is stable. Bibasi lar atelectasis or pneumonia. Increased compared to the prior study. Small bilateral pleural effusi ons. No pneumothorax. No acute osseous abnormalities. Postsurgical changes of the cervical spine. Atherosclerotic vascular calcifications. Impression: 1. Interval removal of endotracheal tube and nasogastric tube. No pneumothorax. 2. The bibasilar atelectasis or pneumonia has increased compared to the prior study. 3. Small bilateral pleural effusions
--- NOTE | 2018-04-26 10:00 | PN ---
DATE OF SERVICE: 04/24/18 CHIEF COMPLAINT: "She is getting more short of breath." BRIEF HISTORY OF PRESENT ILLNESS: Ms. Green was admitted here several days ago for shortness of breath. She had several comorbidities; chronic respiratory failure with COPD and possible asthma , congestive heart failure, diastolic in type and chronic in nature, obesity, and presenting anemia of five. She was slowly over several days transfused sporadically and given diuretics intermittently. Her hemoglobin was approaching 9 and seemed to be showing some signs of staying there. After supper without any choking, she developed increasing shortness of breath and wheeze. Her chart was listed as DNR but the staff contacted Dr. Manzo, who contacted me. I came emergently to the hospital. REVIEW OF SYSTEMS: GENERAL: She hasn't had a bad day today in general. There has been no fever. HEENT: No sinus congestion or drainage. NECK: No pain or mass. CHEST: Increasing wheeze and tightness. CARDIOVASCULAR: There has been no mention of chest pain; she has had sinus tach since she has worsened. GI: Denies abdominal pain. PHYSICAL EXAMINATION: V/S: Pulse 110, sinus tach, afebrile 97.8, respirations 30 and shallow with audible wheeze. Blood pressure 135/82. GENERAL: Younger than stated age obese white female who appears in distress. INTEGUMENT: Skin is warm and dry. There is no mottling or cyanosis. HEENT: Pupils equal and round. Extraocular movements intact. Mucous membranes moist. NECK: No mass or thyroid. CHEST: Barreled, decreased breath sounds, shallow inspirations, no dullness to percussion. Chest x-ray shows only COPD, emphysema, maybe small pleural effusions. CARDIOVASCULAR: Distant S1, S2, tachy without murmur and no peripheral edema. Distal pulse intact. GI: Obese, protuberant, nontender without organomegaly. LABS/X-RAYS: Stable white count in the 14 range with hemoglobin in the 9 range. Platelets are normal. Chemistries show potassium in the 5 range; EGFR high 30s to 40 trend. ABGs show pH 7.24, high pc02 in the 60s, p02 only in the 20s. Current sats are running in the 80s. ASSESSMENT: ACUTE RESPIRATORY FAILURE ON CHRONIC; SHE APPEARS TO BE MOSTLY A COPD/ASTHMA AND EMPHYSEMA EXACERBATION THOUGH I CANNOT RULE OUT A COMPONENT OF DIASTOLIC ACUTE HEART FAILURE. I DON'T SEE SIGNS OF INFECTION OR PNEUMONIA AT THIS POINT. SITUATION IS DIFFICULT SHE IS LISTED A DNR. CRITICAL CARE COURSE: We started by increasing her oxygen, monitoring her gases and really seeing no significant retention. We could not get her 02 sats out of the 80s. She was tried for awhile on her CPAP/BIPAP machine. She was given continuous Albuterol for two to three sessions and this seemed to make her feel some better. She was started on 250 mg Solu-Medrol IV push. She was moved to the Special Care Unit. We briefly tried ventilator and it did not work at all but when she was bagged after that her sats came into the high 90s easily. She remained alert through the entire process. I discussed her DNR situation and she rescinded the issue of intubation but did ask for no cardioversion, chest compressions or pressors. Gabriel Bob came in and she was readied for intubation. This was uneventful , he accomplished. An NG was placed with limited food return. A Phillips was placed with some clear urine return. At this point, her oxygenation and vitals are much more improved and stable and she is resting comfortably with the vent, Propofol and other sedation. The total time spent on this started at 10:30 p.m. and went to 1:30 a.m. Prognosis is uncertain. Condition stable and improved. The family was kept informed throughout the process, agreed with the decisions made but do not want further aggression through the course where we are at. She declines further. SAKINAD
[2018-04-26] MEDS: COLACE PO SCH ×2 (10:19→21:30)
[2018-04-26] MEDS: DIABETA PO SCH ×2 (10:20→21:29)
[2018-04-26] MEDS: TRADJENTA PO SCH (10:21)
[2018-04-26] MEDS: LOTENSIN PO SCH (10:21)
[2018-04-26] MEDS: VITAMIN D PO SCH ×2 (10:22→21:30)
[2018-04-26] MEDS: FERROUS SULFATE PO SCH (10:22)
[2018-04-26] MEDS: NEURONTIN PO SCH ×3 (10:24→21:30)
[2018-04-26] MEDS: PLAVIX PO SCH (10:24)
[2018-04-26] MEDS: LOVENOX SUBCUT SCH (10:25)
[2018-04-26] MEDS: LANTUS SUBCUT SCH ×2 (10:27→21:31)
[2018-04-26] MEDS: SYMBICORT 160-4.5 MCG INHALER IH SCH ×2 (10:29→21:30)
[2018-04-26] MEDS ORDERED: PROTONIX PO STA (10:39)
[2018-04-26] MEDS: LASIX IVP SCH ×2 (10:46→21:29)
--- NOTE | 2018-04-26 11:11 | PN ---
DATE OF SERVICE: 04/22/18 CHIEF COMPLAINT: Shortness of breath. BRIEF HISTORY OF PRESENT ILLNESS: Ms. Green presented through the office on the with several days of increasing shortness of breath. She has multiple chronic problems that can influence that including diastolic congestive heart failure, COPD, chronic respiratory hypoxic failure, chronic kidney disease, obesity and recurring history of anemia. Her anemia has been associated with iron deficiency. She was promptly admitted and found to have a hemoglobin of 5. She was started on transfusions. INTERVAL COURSE: She is less short of breath but rather sedentary. She is eating without nausea, vomiting, diarrhea, melena, hematochezia. She did sleep well last night with only interruptions. She denies new or significant pain. Her blood sugars have been trending low at night. REVIEW OF SYSTEMS: GENERAL: No fever. VITAL SIGNS: Stable. CHEST: No cough or increase in wheeze. CARDIOVASCULAR: Denies palpitations and lying she has less leg edema than usual. GI: Denies abdominal pain. PHYSICAL EXAMINATION: V/S: Temperature 99.1, pulse 90, respirations 20, BP 139/63. GENERAL: No obvious distress. CHEST: Few scattered crackles, wheeze as usual; diminished. CARDIOVASCULAR: S1, S2, distant without murmur and no peripheral edema. GI: Obese, nontender. No splenomegaly, no organomegaly. HEMOLYMPHATIC: No lymphadenopathy appreciated. NEUROLOGIC: Nonfocal use of extremities. PSYCHIATRIC: Alert, oriented times, purposeful conversation. LABS/X-RAYS: White count 14.47, hemoglobin 7.7, hematocrit 27, platelets 243,000. Chemistry shows sodium 135, potassium 4.75, chloride 95, bicarb 39, BUN 35, creatinine 1.09 given GFR of 76. ASSESSMENT: 1. RESPIRATORY FAILURE - HYPOXIC - ACUTE ON CHRONIC AND IMPROVED 2. SHORTNESS OF BREATH - ACUTE ON CHRONIC CONTRIBUTED TO BY SIGNIFICANT SYMPTOMATIC ANEMIA. 3. ANEMIA - HEMOGLOBIN INITIAL 5 - SYMPTOMATIC AND IMPROVED WITH TRANSFUSIONS. 4. GAIT DIFFICULTY - ACUTE ON CHRONIC. 5. DIFFUSE WEAKNESS - ACUTE ON CHRONIC. 6. HYPOGLYCEMIA - [employer]. PLAN: 1. Medicines reviewed; we are going to diminish the 60 b.i.d. of Lantus to 50 and then drop off any h.s. sliding scale. 2. Laboratories reviewed - increase her H&H to twice a day. If she is less than 7 on hemoglobin we are going to transfuse another packed cell tonight. 3. Imaging - none. 4. Consults - unless she ends up needing GI. 5. IV fluids none. 6. Activity; with supervision up to bathroom and we may involve therapy next week. 7. Code status full. 8. Discharge planning - she will expect home. NATHANIEL
--- NOTE | 2018-04-26 11:59 | PN ---
DATE OF SERVICE: 04/24/18 CHIEF COMPLAINT: "Shortness of breath" BRIEF HISTORY OF PRESENT ILLNESS: Ms. Green was admitted here several days ago for shortness of breath. She had several comorbidities; chronic respiratory failure with COPD and possible asthma , congestive heart failure, diastolic in type and chronic in nature, obesity, and presenting anemia of five. She was slowly over several days transfused sporadically and given diuretics intermittently. Her hemoglobin was approaching 9 and seemed to be showing some signs of staying there. After supper without any choking, she developed increasing shortness of breath and wheeze. Her chart was listed as DNR but the staff contacted Dr. Manzo, who contacted me. I came emergently to the hospital. INTERVAL COURSE: Her hemoglobin was 7.4 this morning. We gave another unit of blood and it raised it to 8.9. Her Pro-BNP elevated to 1660 from initially 09/02 and we gave another dose of IV Lasix. Her potassium was 5.27 today and after the Lasix we expect that to be better. She easily gets short of breath but not so much at rest; is comfortable at rest. She ie eating. Her blood sugars are running without much evening lows. She didn't get any significant therapy or walking done today with the medical care she received. REVIEW OF SYSTEMS: GENERAL: Very easily short of breath. No fever. HEENT: No sore throat or mouth. NECK: No pain or mass. CHEST: Occasional cough, frequent wheeze. CARDIOVASCULAR: Denies palpitations or chest pain. No significant leg edema. GI: Denies nausea, vomiting or diarrhea. No melena or hematochezia. PHYSICAL EXAMINATION: V/S: Temperature 98, pulse 98, BP 144/52, respirations 20. GENERAL: Younger than stated age, obese white female who appears in distress. INTEGUMENT: Skin is warm and dry. There is no mottling or cyanosis. HEENT: Pupils are equal and round. Extraocular movements are intact. Mucous membranes are moist. NECK: No mass or thyroid. CHEST: Increase wheeze and tightness. CARDIOVASCULAR: There has been no mention of chest pain; she has had sinus tach since she has worsened. GI: Denies abdominal pain. LABS/X-RAYS: As noted above. Additionally GFR is 36 compared to 48 and 44. ASSESSMENT: 1. RESPIRATORY FAILURE - HYPOXIC, ACUTE ON CHRONIC (ORIGINALLY 88% ON 2L) - INFLUENCED BY ANEMIA AND OTHERS. 2. SHORTNESS OF BREATH - ACUTE ON CHRONIC. 3. ANEMIA - HEMOGLOBIN 5 - SYMPTOMATIC AND NOW TRANSFUSED TO 8.9. 4. GAIT DIFFICULTIES ACUTE ON CHRONIC AND INFLUENCED BY HER SHORTNESS OF BREATH. 5. WEAKNESS. 6. CONGESTIVE HEART FAILURE - DIASTOLIC - ACUTE ON CHRONIC. 7. HYPOGLYCEMIA - IMPROVED WITH INSULIN ADJUSTMENT. 8. COPD. 9. CHRONIC KIDNEY DISEASE - STAGE 3. PLANS: 1. Meds reviewed as above. 2. Laboratories reviewed - for morning we need a BMP and H & H. 3. IV fluids none. 4. Diet - encouraged. 5. Activity - with therapy hopefully she can do some limited walking tomorrow. 6. Discharge plans - she hopes for home but may need other arrangements. 7. Code status remains full. I assume she would want this changed if she had a significant decline. NATHANIEL
--- NOTE | 2018-04-26 13:24 | PN ---
DATE OF SERVICE: 04/23/18 CHIEF COMPLAINT: "Short of breath." BRIEF HISTORY OF PRESENT ILLNESS: She was admitted through the office on the with increased shortness of breath beyond her baseline. She has had this on and off for years with multiple chronic problems, congestive heart failure, chronic lung disease, chronic respiratory failure, obesity for just a few. It includes also having anemia with an iron deficiency connection. She looked pale in the office. She was admitted directly. She was soon found on admission to have a hemoglobin of 5 , transfusion started. We had been walking her stabilize between 7 and 8 and trying to decide whether she was going to be short of breath enough with that that she might require even a higher hemoglobin/hematocrit. There has been no melena or hematochezia. She is on oral iron and her iron parameters this time are unremarkable. REVIEW OF SYSTEMS: GENERAL: Easily fatigued; not walking much especially for the weekend. INTEGUMENT: Denies nasal congestion or drainage. NECK: Denies mass or soreness. CHEST: Occasional usual cough without hemoptysis. CARDIOVASCULAR: Denies palpitation and a little ankle edema is noted. GI: No nausea, vomiting or diarrhea. PHYSICAL EXAMINATION: V/S: Temperature 98.1, pulse 98, respirations 20, blood pressure 127/53. GENERAL: No obvious distress. Mildly cushingoid appearing. INTEGUMENT: Pale but less than admission; trace ankle edema. CHEST: Markedly diminished, soft wheeze as usual. CARDIOVASCULAR: S1, S2 distant without murmur and trace ankle edema. GI: Protuberant, nontender without organomegaly. LABS/X-RAYS: Hemoglobin on the was 8.3 and pending this evening. ASSESSMENT: 1. RESPIRATORY FAILURE - HYPOXIC - ACUTE ON CHRONIC 2. SHORTNESS OF BREATH - ACUTE ON CHRONIC 3. ANEMIA - HEMOGLOBIN LOW 5 AND QUITE SYMPTOMATIC AND SLOWLY TRANSFUSING ; APPEARS TO HAVE STABILIZED AROUND 8 4. GAIT DIFFICULTIES - ACUTE ON CHRONIC 5. WEAKNESS PLAN: 1. Medicines reviewed; no change. 2. Laboratories - Adding H & H tonight and morning with a pro-BNP. 3. Vascular transfusion if hemoglobin is less than 7. 4. Imaging done. 5. Consults none but may require GI. 6. Code status - I have her listed as full. I am sure this would change on her accord if her condition changed. 7. Discharge plan - she plans for home. 8. Diet encouraged. 9. Fluids none. MTDD
--- NOTE | 2018-04-26 14:01 | PN ---
DATE OF SERVICE: 04/25/18 CHIEF COMPLAINT: "Shortness of breath." BRIEF HISTORY OF PRESENT ILLNESS: Ms. 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 She has CHF, diastolic on echo. She has obesity. Again with all of these she is chronically short of breath. She was seen in the office three to four days ago and admitted with hemoglobin found to be 5. As she was slowly transfused using diuretics between transfusions, we got her hemoglobin to 9. Unfortunately the evening of the she had acute and sudden onset of increased shortness of breath and hypoxemia that led to her being intubated and ventilated through the night. We placed her on high dose steroids, continuous to frequent Albuterol nebulized interventions while being sedated on Propofol. She rested. Earlier this afternoon her parameters looked reasonable. The sats started weaning ventilator support and got her to T-tube. She kept her sats with that. Chest x- ray continued to show only emphysema and mild pleural effusion. She has been getting IV Lasix and making some urine. REVIEW OF SYSTEMS: GENERAL: She admits to significant fatigue. No fever. INTEGUMENT: No rash or wounds. NECK: No pain or choking. CHEST: Very little cough. CARDIOVASCULAR: Denies chest pain. She has had no significant arrhythmias. GI: Denies nausea and with NG there has been no vomiting and no diarrhea. : She has a Phillips. LABORATORIES: White count 14.8, hemoglobin 8.5, chemistries show potassium 5.5, BUN 49, creatinine 1.45, GFR 35 down from previous 40s. Blood sugars in the 236 range. PHYSICAL EXAMINATION: V/S: Temperature 99, Pulse 91, Blood pressure 160/69, Respirations 28. GENERAL: Obese, no obvious distress with facial mask oxygen. INTEGUMENT: No open sores or rash. No lower extremity edema. [place] [facility]. HEENT: Pupils equal and round. Extraocular movements intact. Tongue is moist. NECK: No mass or thyroid. CHEST: Better breath sounds, few scattered crackles. Expiratory wheeze. CARDIOVASCULAR: Distant S1, S2 without murmur. No peripheral edema. Distal pulses intact. GI: Obese without organomegaly or tenderness. MUSCULOSKELETAL: Nonfocal use of extremities. Makes good eye contact. Facial asymmetry. PSYCHIATRIC: Oriented times three. Knew me, knew the date, knew she was in the hospital. ASSESSMENT: 1. Respiratory failure, hypoxic acute and chronic. 2. Respiratory failure, hypercarbic, acute. 3. Shortness of breath, acute on chronic. 4. Anemia, hemoglobin of 5 - transfused. 5. Ventilator support - 04/24 through 04/25/18. 6. Gait difficulties - acute on chronic. 7. Diffuse weakness. 8. Brief NPO status. # Phillips. PLANS: 1. Medications reviewed. We will do Duonebs q.4hr alternating q.2hr, Albuterol as needed. We will continue 125 mg steroids every 8hr and Lasix 20 mg b.i.d. She is now on Lovenox for renal dosing. 2. Laboratories reviewed - continue daily CBC, Chemistries and others if needed. 3. Imaging was continued. Intermittent chest x-rays. 4. Consults - none. 5. Diet - Goals are to advance back to [place]; currently we will give ice chips followed by clear liquids. 6. Fluids - slow rate of Ringers at 30 cc/hr. 7. Special Issues: She is back to being a DNR as she does not want and the family agrees. No further reintubation. 8. Discharge planning. She was thinking home but if she survives will have to be something different. NATHANIEL
--- NOTE | 2018-04-26 14:59 | OTPN ---
Subjective - Patient Information Date of Evaluation: 04/24/18 Date of Arrival on Unit: 04/20/18 Diagnosis: Acute respiratory failure Patient Reports/Comments: Pt was moved to SCU -2 and put on a vent due to breathing difficulty. Pt completed transfer CGA from bed to chair with 2 people for safety. Pt very Short of air with activity. Short Term Goals - Goals GOAL 1: Pt to increase BUE strength to 4/5. Goal to be met by: 04/28/18 GOAL 2: Pt to increase dyn. std. balance too Fair+. Goal to be met by: 04/28/18 GOAL 3: Pt to increase activity tolerance to 8 minutes with rests PRN. Goal to be met by: 04/28/18 [facility] Goals GOAL 1: Pt to increase BUE strength to 4+/5. Goal to be met by: 05/03/18 GOAL 2: Pt to increase dyn. std. balance too Good. Goal to be met by: 05/03/18 GOAL 3: Pt to increase activity tolerance to 15 minutes with rests PRN. Goal to be met by: 05/03/18
[2018-04-26] MEDS: ZOCOR PO SCH (21:29)
[2018-04-26] MEDS: REQUIP PO SCH (21:29)
[2018-04-27] MEDS: DUONEB NEB SCH ×6 (01:10→22:35)
[2018-04-27] MEDS: SOLU-MEDROL 125 MG IVP SCH ×3 (05:50→21:47)
[2018-04-27] MEDS: PROTONIX PO SCH (05:50)
[2018-04-27] MEDS: HUMALOG SUBCUT SCH ×3 (05:56→16:43)
[2018-04-27] MEDS: LOTENSIN PO SCH (10:17)
[2018-04-27] MEDS: COLACE PO SCH ×2 (10:17→21:59)
[2018-04-27] MEDS: FERROUS SULFATE PO SCH (10:17)
[2018-04-27] MEDS: DIABETA PO SCH ×2 (10:17→21:59)
[2018-04-27] MEDS: PLAVIX PO SCH (10:18)
[2018-04-27] MEDS: NEURONTIN PO SCH ×3 (10:18→21:59)
[2018-04-27] MEDS: TRADJENTA PO SCH (10:18)
[2018-04-27] MEDS: SYMBICORT 160-4.5 MCG INHALER IH SCH ×2 (10:19→21:54)
[2018-04-27] MEDS: VITAMIN D PO SCH ×2 (10:19→22:04)
[2018-04-27] MEDS: LANTUS SUBCUT SCH ×2 (10:21→21:52)
[2018-04-27] MEDS: LOVENOX SUBCUT SCH (10:21)
[2018-04-27] MEDS: LACTATED RINGERS 1,000 ML IV SCH (10:24)
[2018-04-27] MEDS: LASIX IVP SCH ×2 (10:27→21:47)
--- NOTE | 2018-04-27 10:51 | PN ---
DATE OF SERVICE: 04/26/18 CHIEF COMPLAINT: "Shortness of breath." BRIEF HISTORY OF PRESENT ILLNESS: Ms. 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 She has CHF, diastolic on echo. She has obesity. Again with all of these she is chronically short of breath. She was seen in the office three to four days ago and admitted with hemoglobin found to be 5. As she was slowly transfused using diuretics between transfusions, we got her hemoglobin to 9. Unfortunately the evening of the she had acute and sudden onset of increased shortness of breath and hypoxemia that led to her being intubated and ventilated through the night. We placed her on high dose steroids, continuous to frequent Albuterol nebulized interventions while being sedated on Propofol. She rested. Earlier this afternoon her parameters looked reasonable. The sats started weaning ventilator support and got her to T-tube. She kept her sats with that. Chest x- ray continued to show only emphysema and mild pleural effusion. She has been getting IV Lasix and making some urine. INTERVAL COURSE: She has progressively had less shortness of breath and no significant cough. Her oxygen requirements have weaned. She is still doing better on a mask than she is with CPAP. She is taking ice chips and liquids well and she is getting hungry. She has had bowel movements and without melena or hematochezia. She has a Phillips. She doesn't regret now having the intubation. REVIEW OF SYSTEMS: GENERAL: No fever. Quite fatigued. INTEGUMENT: Denies sores. CHEST: Occasional cough; not short of breath with her oxygen. CARDIOVASCULAR: Denies exertional chest pain, palpitations. GI: Starting to get an appetite with no nausea, vomiting or diarrhea. PHYSICAL EXAMINATION: V/S: Temperature 98.1, pulse 87, BP 122/50, respirations 12. GENERAL: Obese, appropriate for age white female with oxygen by mask in no acute distress. INTEGUMENT: Mildly cushingoid facies. No open sores or rash. No lower extremity edema. HEENT: Pupils equal and round, slight ptosis of the right eyelid but forehead fissures are symmetric. Extraocular movements intact. Tongue is moist. NECK: No mass or thyroid. CHEST: Nontender. Diminshed, less wheeze, better air movement and no dullness to percussion. CARDIOVASCULAR: Distant S1, S2 without murmur. No peripheral edema. Distal pulses intact. GI: Protuberant, firm but not tender without organomegaly. MUSCULOSKELETAL: Four quadrant movements are equal. PSYCHIATRIC: Oriented times three. Pleasant, personable. LABS: White count 22.57, hemoglobin 9.2, chemistry show sodium 135, potassium 4.99, BUN 64, creatinine 1.42, GFR 36 compared to 35. ASSESSMENT: 1. Respiratory failure, hypoxic acute and chronic. 2. Respiratory failure, hypercarbic, acute. 3. Shortness of breath, acute on chronic. 4. Anemia, hemoglobin of 5 - transfused. 5. Ventilator support - 04/24 through 04/25/18. 6. Gait difficulties - acute on chronic. 7. Diffuse weakness. 8. Brief NPO status. # Phillips. # Leukocytosis - probably secondary to steroid use. DISCUSSION: She is improved in her respiratory status. PLAN: 1. Medicines reviewed - no change. 2. Labs reviewed - continue daily CBC and CMP. 3. Imaging reviewed - none currently. 4. Consultations - none. 5. Diet - we are going to let her start back on cardiac. 6. Fluids reviewed - same slow rate. 7. Increase activity; once she is breathing better and maybe tomorrow. 8. Code status now back to DNR and she agrees no further intubation. 9. Discussed possible discharge plans. She expects home but it may be required to go elsewhere. 10. Discuss with son, patient and nursing staff. 11. Available to work with the care team or talk again to the patient or family. NATHANIEL
[2018-04-27] MEDS: REQUIP PO SCH (22:03)
[2018-04-27] MEDS: ZOCOR PO SCH (22:05)
[2018-04-28] MEDS: DUONEB NEB SCH ×3 (01:55→10:15)
[2018-04-28] MEDS: PROTONIX PO SCH (05:53)
[2018-04-28] MEDS: SOLU-MEDROL 125 MG IVP SCH (05:53)
[2018-04-28] MEDS: HUMALOG SUBCUT SCH (05:55)
[2018-04-28 06:02] VITALS: BP 150/54; TEMP 96.9
--- NOTE | 2018-04-28 09:03 | PN ---
DATE OF SERVICE: 04/27/18 CHIEF COMPLAINT: "I couldn't get my breath." BRIEF HISTORY OF PRESENT ILLNESS: Ms. 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 She has CHF, diastolic on echo. She has obesity. Again with all of these she is chronically short of breath. She was seen in the office three to four days ago and admitted with hemoglobin found to be 5. As she was slowly transfused using diuretics between transfusions, we got her hemoglobin to 9. Unfortunately the evening of the she had acute and sudden onset of increased shortness of breath and hypoxemia that led to her being intubated and ventilated through the night. We placed her on high dose steroids, continuous to frequent Albuterol nebulized interventions while being sedated on Propofol. She rested. Earlier this afternoon her parameters looked reasonable. The sats started weaning ventilator support and got her to T-tube. She kept her sats with that. Chest x- ray continued to show only emphysema and mild pleural effusion. She has been getting IV Lasix and making some urine. INTERVAL COURSE: She has had a better day. She has actually walked some outside of the room. Appetite has returned. She is eating better. There is no vomiting or diarrhea. She was able to sleep on and off during the day and some at night. Her oxygen is between 2 and 3L to maintain 90%. Case management is looking at her as a possible option for swing bed. REVIEW OF SYSTEMS: GENERAL: Denies pain; less malaise. INTEGUMENT: No rash. HEENT: No mouth sores. Ear fullness. NECK: No tenderness. CHEST: Less cough. Less wheeze. CARDIOVASCULAR: No ankle edema or chest pain. GI: No nausea, vomiting or diarrhea. PHYSICAL EXAMINATION: V/S: Temperature 99.5, pulse 94, respirations 14, BP 131/54. GENERAL: Obese, appropriate for age white female with oxygen by mask in no acute distress. INTEGUMENT: Mildly cushingoid facies. No open sores or rash. No lower extremity edema. HEENT: Pupils equal and round, slight ptosis of the right eyelid but forehead fissures are symmetric. Extraocular movements intact. Tongue is moist. NECK: No mass or thyroid. CHEST: Nontender. Diminshed, less wheeze, better air movement and no dullness to percussion. CARDIOVASCULAR: Distant S1, S2 without murmur. No peripheral edema. Distal pulses intact. GI: Protuberant, firm but not tender without organomegaly. MUSCULOSKELETAL: Four quadrant movements are equal. PSYCHIATRIC: Oriented times three. Pleasant, personable. LABS/X-RAYS: White count 17.35, down; hemoglobin 8.8 and steady; platelets steady at 266. Chemistries: Sodium 136, potassium 4.92, chloride 94, bicarb 38, BUN 56, creatinine 1.16 giving a GFR that is stable in the 45 range. Blood sugar 212. ASSESSMENT: 1. Respiratory failure, hypoxic acute and chronic. 2. Respiratory failure, hypercarbic, acute. 3. Shortness of breath, acute on chronic. 4. Anemia, hemoglobin of 5 - transfused. 5. Ventilator support - 04/24 through 04/25/18. 6. Gait difficulties - acute on chronic. 7. Diffuse weakness. 8. Brief NPO status. # Phillips. # Leukocytosis - probably secondary to steroid use. Overall, she is making gradual progress in her degree of respiratory failure though it is taking very high dose sterois. She has a great ways to go with returning to her normal degree of ambulation. PLAN: 1. Medications reviewed - no changes but begin weaning steroids tomorrow. 2. Labs continue daily, CBC and CMP or BMP and around the clock blood sugar monitoring. 3. Imaging none. 4. Consults none. 5. Fluids - will lock her IV. 6. Discharge planning - possibly swing bed tomorrow. 7. Code status - now DNR. SAKINAD
[2018-04-28] MEDS: NEURONTIN PO SCH (09:22)
[2018-04-28] MEDS: SYMBICORT 160-4.5 MCG INHALER IH SCH (09:22)
[2018-04-28] MEDS: COLACE PO SCH (09:23)
[2018-04-28] MEDS: TRADJENTA PO SCH (09:24)
[2018-04-28] MEDS: DIABETA PO SCH (09:24)
[2018-04-28] MEDS: PLAVIX PO SCH (09:24)
[2018-04-28] MEDS: FERROUS SULFATE PO SCH (09:24)
[2018-04-28] MEDS: LASIX IVP SCH (09:24)
[2018-04-28] MEDS: LOTENSIN PO SCH (09:24)
[2018-04-28] MEDS: VITAMIN D PO SCH (09:24)
[2018-04-28] MEDS: LANTUS SUBCUT SCH (09:25)
[2018-04-28] MEDS: LOVENOX SUBCUT SCH (09:26)
[2018-04-28] MEDS: LACTATED RINGERS 1,000 ML IV SCH (10:05)
[2018-04-28] MEDS ORDERED: SOLU-MEDROL 125 MG IVP SCH (13:00)
== END 2018-04-28 10:51 | disposition swing bed (61) | DRG 189 ==
LOC: MEDSURG B 16:33 → UNDOADMIN 16:33 → MEDSURG B 16:33 → UNDOADMIN 04-21 16:34 → OBSVTOIN 04-21 16:34 → MEDSURG B 04-24 23:15 → SCU 04-24 23:15 → MEDSURG B 04-24 23:15 → SCU 04-24 23:15 → MEDSURG B 04-27 12:02 → SCU 04-27 12:02 → UNDODISIN 04-28 10:51
PROVIDERS: ADMIT Family Medicine; ATTEND Family Medicine
PROC: 30233N1 Transfusion of Nonautologous Red Blood Cells into Peripheral Vein, Percutaneous Approach (ICD-10-PCS; principal; 2018-04-20)
PROC: 30233N1 Transfusion of Nonautologous Red Blood Cells into Peripheral Vein, Percutaneous Approach (ICD-10-PCS; 2018-04-21)
PROC: 30233N1 Transfusion of Nonautologous Red Blood Cells into Peripheral Vein, Percutaneous Approach (ICD-10-PCS; 2018-04-24)
DX: J96.01 Acute respiratory failure with hypoxia (principal); I50.30 Unspecified diastolic (congestive) heart failure; I10 Essential (primary) hypertension; D64.9 Anemia, unspecified; N18.3 Chronic kidney disease, stage 3 (moderate); E11.65 Type 2 diabetes mellitus with hyperglycemia; J44.9 Chronic obstructive pulmonary disease, unspecified; R26.9 Unspecified abnormalities of gait and mobility; Z86.73 Personal history of transient ischemic attack (TIA), and cerebral infarction without residual deficits; Z79.4 Long term (current) use of insulin
CPT/HCPCS: 36415; 36430; 80048; 80053; 82550; 82746; 82803; 82962; 83540; 83550; 83880; 84132; 84484; 85008; 85014; 85018; 85025; 86850; 86900; 86922; 93005; 93010; 94002; 94150; 94640

== ENCOUNTER 2018-04-28 10:54 | Inpatient (IN) | payer OTHER ==
[2018-04-28] MEDS ORDERED: TYLENOL PO PRN (11:44)
[2018-04-28] MEDS ORDERED: ASPIRIN PO PRN (11:44)
[2018-04-28] MEDS ORDERED: CAFFEINE PO PRN (11:44)
[2018-04-28] MEDS ORDERED: DUONEB NEB PRN (11:59)
[2018-04-28] MEDS ORDERED: PROAIR HFA IH SCH (12:00)
[2018-04-28] MEDS ORDERED: PROAIR HFA IH PRN (12:27)
[2018-04-28] MEDS: SOLU-MEDROL 125 MG IVP SCH ×2 (12:40→21:26)
[2018-04-28] MEDS: HUMALOG SUBCUT SCH ×2 (12:41→18:08)
[2018-04-28] MEDS: DUONEB NEB SCH ×3 (14:07→23:00)
--- NOTE | 2018-04-28 15:47 | RS.OTINEVL ---
Subjective - Patient information Date of Evaluation: 04/28/18 Date of Arrival on Unit: 04/28/18 Admitted From:: In-House Transfer Usual Living Arrangement: Alone Living Arrangement Comments: son checks on her frequently Home Environment: House Medical History: CVA/TIA, CHF Medical History Comments:: ND, acute respiratory failure, anemia, gallstones, hysterectomy, Asthma, Sleep apnea,CHF, RA Surgical History: Hysterectomy - Level of function Prior to this admission, the patient could do the following:: Independent ADL's , Independent Ambulation Current Equipment Used at Home: bi pap, oxygen, nebulizer, glucometer, walker Pain Assessment - Pain Pain Score: 0 Interventions - Objective Patient Orientation: Person, Place, Situation Current Interventions: IV's, Oxygen, Telemetry, Phillips Catheter Observation: Pt is feeling better. Pt is short of breath sitting in the chair. Pt weak and Oxygen level dropping. Interventions - ROM Right Upper Extremity AROM: Slight limitation Left Upper Extremity AROM: Slight limitation - Strength Right Upper Extremity Strength: Mild Weakness Left Upper Extremity Strength: Mild Weakness - Sensation Right Upper Extremity Sensation: Intact/Normal Left Upper Extremity Sensation: Intact/Normal Balance - Sitting Balance Static Sitting Balance: Fair Dynamic Sitting Balance: Fair - Standing Balance Static Standing Balance: Fair Dynamic Standing Balance: Fair ADL Skills - Self Feeding Self Feeding: Independent - Bathing Bathing UE: Not Tested Bathing LE: Not Tested - Dressing Dressing UE: Supervision Dressing LE: Max Assist, 1 person assist - Toilet Management Toileting Management: Min Assist, 1 person assist Functional Mobility - Bed Mobility Rolling R/L: CGA Scooting: CGA Supine to Sit: Min Assist Sit to Supine: Min Assist, Mod Assist - Transfers Sit to Stand: CGA Stand to Sit: CGA Stand Pivot Transfers: CGA - Ambulation Weight Bearing Status: FWB Assistive Device Used: Rolling Walker Assistance needed with Ambulation: CGA, 2 person assist - Safety Awareness Safety Awareness: Fair MANNY INDEX SCORE: 53 Additional Treatment Performed - Additional units charged OT 1 to 1 Activity: 15 - Time with patient Length of Evaluation: 30 Total treatment time: 45 Activities Would you be interested in leaving your room for activities?: Yes Would you enjoy group activities?: Yes Do you have difficulty with your vision?: Yes Patient Interests:: Watching Television, Puzzles/Games, Visiting/Socializing Patient Education Patient Education: Education of diagnosis, Home Exercise Program, Home Safety, Education of Plan of Care Teaching Recipient: Patient Teaching Methods: Discussion Assessment Problem List:: Decreased level of function, Requires training/education, Decreased safety/Risk of falls, Weakness Rehab Potential: Good Further Therapy Indicated?: Yes Candidate for Swing Bed for Therapy Services?: yes Evaluation Complexity: HISTORY: Medium, EXAM OF BODY SYSTEMS: Medium, CLINICAL DECISION MAKING: Medium Short Term Goals - Goals GOAL 1: Pt to increase BUE strength to 4/5. Goal to be met by: 05/05/18 GOAL 2: Pt to increase dyn. std. balance too Fair+. Goal to be met by: 05/05/18 Comments: Working on sitting balance this pm GOAL 3: Pt to increase activity tolerance to 8 minutes with rests PRN. Goal to be met by: 05/05/18 Comments: Pt requires multi rests during all activity Mat Packer Goals GOAL 1: Pt to increase BUE strength to 4+/5. Goal to be met by: 05/12/18 GOAL 2: Pt to increase dyn. std. balance too Good. Goal to be met by: 05/12/18 GOAL 3: Pt to increase activity tolerance to 15 minutes with rests PRN. Goal to be met by: 05/12/18 Plan Plan of Care: Therapeutic EX, Neuromuscular Re-Educ, Therapeutic Activity, Self- Care/Home Management Frequency of Treatment: 1-2 X day, as tolerated Duration of Treatment: 2 Weeks Anticipated Discharge Destination: Home Treatment Diagnosis (ICD 10 Codes): M62.81 Muscle weakness, Z74.1 Need for assistance with personal care. Has the Physician been added for Co-signature?: Yes
--- NOTE | 2018-04-28 16:26 | RS.PTINEVL ---
Subjective - Patient information Date of Evaluation: 04/28/18 Date of Arrival on Unit: 04/28/18 Admitted From:: In-House Transfer (swing bed transfer) Diagnosis: acute respiratory failure, DM Usual Living Arrangement: Alone Living Arrangement Comments: son checks on her frequently Home Environment: House, Stairs (few), Rail Medical History: Hypertension, CVA/TIA, COPD, Diabetes, CHF, Arthritis (OA and RA) Medical History Comments:: AR, Sleep apnea, hiatal hernia LATEX ALLERGY?: No Surgical History: Hysterectomy Medications: see chart Subjective Information/ Patient Comments:: pt states that she is glad to be out of the unit and anxious to get her rizo catheter out. pt appears to be in good spirits. - Level of function Prior to this admission, the patient could do the following:: Independent ADL's , Independent Ambulation Current Level of Function: Partially Dependent Current Equipment Used at Home: bi pap, oxygen, nebulizer, glucometer, walker Interventions - Objective Patient Orientation: Person, Place, Time, Situation Current Interventions: IV's, Oxygen, Telemetry Range of Motion - ROM Right Upper Extremity AROM: WFL's Left Upper Extremity AROM: WFL's Right Lower Extremity AROM: WFL's Left Lower Extremity AROM: WFL's Muscle Strength - Muscle Strength Right Upper Extremity Strength: Mild Weakness (grossly 3+/5) Left Upper Extremity Strength: Mild Weakness (grossly 3+/5) Right Lower Extremity Strength: Mild Weakness (hip flex 3+/5, knee flex/ext 4-/5 , ankle Df/PF 4-/5) Left Lower Extremity Strength: Mild Weakness (hip flex 3+/5, knee flex/ext 4-/5 , ankle Df/PF 4-/5) Sensation - Sensation Right Upper Extremity Sensation: Intact/Normal Left Upper Extremity Sensation: Intact/Normal Right Lower Extremity Sensation: Intact/Normal Left Lower Extremity Sensation: Intact/Normal Palpation Palpation Findings: None/Normal Balance - Sitting Balance and Reactions Static Sitting Balance: Good Dynamic Sitting Balance: Fair Sitting Equilibrium Reactions: Delayed Left, Delayed Right Sitting Protective Reactions: Delayed Left, Delayed Right - Standing Balance and Reactions Static Standing Balance: Poor Dynamic Standing Balance: Poor Standing Equilibrium Reactions: Delayed Left, Delayed Right Standing Protective Reactions: Delayed Left, Delayed Right Functional Mobility - Bed Mobility Rolling R/L: Supervision Scooting: Supervision (using bedrails) Supine to Sit: CGA Sit to Supine: CGA - Transfers Sit to Stand: CGA, Min Assist Stand to Sit: CGA - Safety Awareness Safety Awareness: Good MANNY INDEX SCORE: 53 Ambulation - Ambulation Assistive Device Used: Rolling Walker Orthotic/Prosthetic Device: No Distance: 100ft Assistance needed with Ambulation: CGA, Min Assist, 1 person assist Gait Deviations: Forward posture, Short stride Ambulation Comments: pt amb with flexed posture, decreased step length. pt amb with O2 3 liters and cues for PLB. pt O2 sats at 88% decreased to 72% then rebounded to 87 Factors Affecting Ambulation: Decreased Balance, Breathing/O2 Saturation, Weakness, Decreased Safety, Limited Endurance Treatment time - Units charged Gait trainin - Time with patient Length of Evaluation: 18 Total treatment time: 31 Patient Education - Education Patient Education: Home Exercise Program, Education of Plan of Care Teaching Recipient: Patient Teaching Methods: Discussion, Demonstration Comments: discussion regarding POC as well as safety with transfers and gait. Assessment - Assessment Problem List:: Decreased level of function, Requires training/education, Decreased safety/Risk of falls, Weakness Rehab Potential: Good Further Therapy Indicated?: Yes Candidate for Swing Bed for Therapy Services?: pt is a current swing bed Evaluation Complexity: HISTORY: Medium (CHF, COPD, HTN, OA, ), EXAM OF BODY SYSTEMS: Low (strength, balance, posture, gait, transfer, SOA), CLINICAL PRESENTATION: Medium (evolving), CLINICAL DECISION MAKING: Medium Short Term Goals GOAL #1: pt demonstrate independence with rolling and scooting in bed Goal to be met by: 05/05/18 GOAL #2: Transfer sup to/from sit CGA Goal to be met by: 05/05/18 GOAL #3: Transfer sit to/from stand CGA Goal to be met by: 05/05/18 GOAL #4: Improve BLE strength 4/5 Goal to be met by: 05/05/18 GOAL #5: pt amb 100ft with rwx with CGA with O2 with no LOB Goal to be met by: 05/05/18 Intermediate Goals GOAL #1: Transfer sup to/from sit to/from stand SBA to independent Goal to be met by: 05/12/18 GOAL #2: pt amb functional household distances with rwx and O2 SBA Goal to be met by: 05/12/18 GOAL #3: pt with improved dyn stand balance fair + Goal to be met by: 05/12/18 Plan Plan of Care: Therapeutic EX, Therapeutic Activity Other:: gait training Frequency of Treatment: 1-2 X day, as tolerated Duration of Treatment: 2 Weeks Anticipated Discharge Destination: Home Treatment Diagnosis (ICD 10 Codes): R26.2 difficulty walking. R26.81 balance impaired. M62.81 muscle weakness Has the Physician been added for Co-signature?: Yes
[2018-04-28] MEDS: LASIX TAB PO SCH (18:08)
[2018-04-28] MEDS: ALBUTEROL 0.083% NEB NEB PRN (20:30)
[2018-04-28] MEDS ORDERED: NON-FORMULARY MEDICATION (Gabapentin [Gabapentin] 400 MG) PO SCH (21:00)
[2018-04-28] MEDS ORDERED: LASIX IVP SCH (21:00)
[2018-04-28] MEDS ORDERED: NON-FORMULARY MEDICATION (Cholecalciferol (Vitamin D3) [Vitamin D3] 1,000 UNIT) PO SCH (21:00)
[2018-04-28] MEDS: LANTUS SUBCUT SCH (21:28)
[2018-04-28] MEDS: VITAMIN D PO SCH (21:29)
[2018-04-28] MEDS: DIABETA PO SCH (21:31)
[2018-04-28] MEDS: COLACE PO SCH (21:31)
[2018-04-28] MEDS: REQUIP PO SCH (21:32)
[2018-04-28] MEDS: NEURONTIN PO SCH ×2 (21:32)
[2018-04-28] MEDS: ZOCOR PO SCH (21:33)
[2018-04-28] MEDS: SYMBICORT 160-4.5 MCG INHALER IH SCH (21:33)
[2018-04-29] MEDS: DUONEB NEB SCH ×6 (02:30→21:30)
[2018-04-29] MEDS: SOLU-MEDROL 125 MG IVP SCH ×3 (05:07→20:12)
[2018-04-29] MEDS: HUMALOG SUBCUT SCH ×3 (05:43→16:49)
[2018-04-29] MEDS: LASIX TAB PO SCH ×2 (05:44→16:48)
[2018-04-29] MEDS: PROTONIX PO SCH (05:44)
[2018-04-29] MEDS: DIABETA PO SCH ×2 (08:28→20:30)
[2018-04-29] MEDS: LOTENSIN PO SCH (08:28)
[2018-04-29] MEDS: PLAVIX PO SCH (08:28)
[2018-04-29] MEDS: NEURONTIN PO SCH ×3 (08:28→20:32)
[2018-04-29] MEDS: VITAMIN D PO SCH ×2 (08:29→20:30)
[2018-04-29] MEDS: COLACE PO SCH ×2 (08:29→20:32)
[2018-04-29] MEDS: FERROUS SULFATE PO SCH (08:29)
[2018-04-29] MEDS: TRADJENTA PO SCH (08:29)
[2018-04-29] MEDS: SYMBICORT 160-4.5 MCG INHALER IH SCH ×2 (08:31→20:38)
[2018-04-29] MEDS: LOVENOX SUBCUT SCH (08:33)
[2018-04-29] MEDS: LANTUS SUBCUT SCH ×2 (08:37→20:33)
[2018-04-29] MEDS ORDERED: NON-FORMULARY MEDICATION (Ferrous Sulfate [Feosol] 325 MG) PO SCH (09:00)
[2018-04-29] MEDS ORDERED: NON-FORMULARY MEDICATION (Benazepril Hcl [Benazepril Hcl] 20 MG) PO SCH (09:00)
[2018-04-29] MEDS: REQUIP PO SCH (20:32)
[2018-04-29] MEDS: ZOCOR PO SCH (20:33)
[2018-04-30] MEDS: DUONEB NEB SCH ×6 (02:00→21:50)
[2018-04-30] MEDS: SOLU-MEDROL 125 MG IVP SCH (04:33)
[2018-04-30] MEDS: LASIX TAB PO SCH ×2 (05:56→16:58)
[2018-04-30] MEDS: HUMALOG SUBCUT SCH ×3 (05:56→16:58)
[2018-04-30] MEDS: PROTONIX PO SCH (05:56)
[2018-04-30] MEDS: VITAMIN D PO SCH ×2 (08:21→21:07)
[2018-04-30] MEDS: TRADJENTA PO SCH (08:22)
[2018-04-30] MEDS: DIABETA PO SCH ×2 (08:22→16:57)
[2018-04-30] MEDS: LOTENSIN PO SCH (08:23)
[2018-04-30] MEDS: PLAVIX PO SCH (08:23)
[2018-04-30] MEDS: COLACE PO SCH ×2 (08:23→21:07)
[2018-04-30] MEDS: FERROUS SULFATE PO SCH (08:23)
[2018-04-30] MEDS: LANTUS SUBCUT SCH ×2 (08:24→21:11)
[2018-04-30] MEDS: NEURONTIN PO SCH ×3 (08:24→21:09)
[2018-04-30] MEDS: LOVENOX SUBCUT SCH (08:27)
[2018-04-30] MEDS: SYMBICORT 160-4.5 MCG INHALER IH SCH ×2 (09:04→21:07)
[2018-04-30] MEDS: PREDNISONE PO SCH (16:58)
[2018-04-30] MEDS: ZOCOR PO SCH (21:07)
[2018-04-30] MEDS: REQUIP PO SCH (21:09)
[2018-05-01] MEDS: DUONEB NEB SCH ×6 (01:30→23:35)
[2018-05-01] MEDS: LASIX TAB PO SCH ×2 (05:54→17:38)
[2018-05-01] MEDS: PROTONIX PO SCH (05:54)
[2018-05-01] MEDS: HUMALOG SUBCUT SCH ×3 (05:54→17:39)
[2018-05-01] MEDS: COLACE PO SCH ×2 (08:20→20:52)
[2018-05-01] MEDS: VITAMIN D PO SCH ×2 (08:21→20:52)
[2018-05-01] MEDS: PREDNISONE PO SCH ×2 (08:21→17:39)
[2018-05-01] MEDS: NEURONTIN PO SCH ×3 (08:21→20:52)
[2018-05-01] MEDS: LOTENSIN PO SCH (08:22)
[2018-05-01] MEDS: DIABETA PO SCH ×2 (08:22→17:38)
[2018-05-01] MEDS: PLAVIX PO SCH (08:23)
[2018-05-01] MEDS: SYMBICORT 160-4.5 MCG INHALER IH SCH ×2 (08:23→20:51)
[2018-05-01] MEDS: FERROUS SULFATE PO SCH (08:23)
[2018-05-01] MEDS: TRADJENTA PO SCH (08:23)
[2018-05-01] MEDS: LANTUS SUBCUT SCH ×2 (08:25→20:52)
[2018-05-01] MEDS: LOVENOX SUBCUT SCH (08:27)
[2018-05-01] MEDS: ALBUTEROL 0.083% NEB NEB PRN (20:35)
[2018-05-01] MEDS: REQUIP PO SCH (20:51)
[2018-05-01] MEDS: ZOCOR PO SCH (20:52)
[2018-05-02] MEDS: DUONEB NEB SCH ×4 (04:39→23:12)
[2018-05-02] MEDS: LASIX TAB PO SCH ×2 (05:57→17:50)
[2018-05-02] MEDS: PROTONIX PO SCH (05:57)
[2018-05-02] MEDS: HUMALOG SUBCUT SCH ×3 (06:45→17:52)
[2018-05-02] MEDS: PLAVIX PO SCH (09:15)
[2018-05-02] MEDS: LOTENSIN PO SCH (09:15)
[2018-05-02] MEDS: DIABETA PO SCH ×2 (09:15→17:50)
[2018-05-02] MEDS: TRADJENTA PO SCH (09:15)
[2018-05-02] MEDS: FERROUS SULFATE PO SCH (09:15)
[2018-05-02] MEDS: LOVENOX SUBCUT SCH (09:16)
[2018-05-02] MEDS: COLACE PO SCH ×2 (09:16→21:41)
[2018-05-02] MEDS: VITAMIN D PO SCH ×2 (09:16→21:42)
[2018-05-02] MEDS: PREDNISONE PO SCH ×2 (09:16→17:50)
[2018-05-02] MEDS: NEURONTIN PO SCH ×3 (09:16→21:42)
[2018-05-02] MEDS: LANTUS SUBCUT SCH ×2 (09:25→21:47)
[2018-05-02] MEDS: SYMBICORT 160-4.5 MCG INHALER IH SCH ×2 (09:26→21:44)
[2018-05-02] MEDS: REQUIP PO SCH (21:40)
[2018-05-02] MEDS: ZOCOR PO SCH (21:42)
[2018-05-03] MEDS: DUONEB NEB SCH ×4 (04:48→23:20)
[2018-05-03] MEDS: PROTONIX PO SCH (06:39)
[2018-05-03] MEDS: LASIX TAB PO SCH ×2 (06:39→16:40)
[2018-05-03] MEDS: HUMALOG SUBCUT SCH ×3 (08:00→16:40)
[2018-05-03] MEDS: NEURONTIN PO SCH ×3 (08:16→20:40)
[2018-05-03] MEDS: TRADJENTA PO SCH (08:16)
[2018-05-03] MEDS: DIABETA PO SCH ×2 (08:16→16:40)
[2018-05-03] MEDS: VITAMIN D PO SCH ×2 (08:17→20:40)
[2018-05-03] MEDS: LOTENSIN PO SCH (08:17)
[2018-05-03] MEDS: PREDNISONE PO SCH ×2 (08:17→16:40)
[2018-05-03] MEDS: PLAVIX PO SCH (08:17)
[2018-05-03] MEDS: COLACE PO SCH ×2 (08:17→20:40)
[2018-05-03] MEDS: FERROUS SULFATE PO SCH (08:17)
[2018-05-03] MEDS: SYMBICORT 160-4.5 MCG INHALER IH SCH ×2 (08:19→20:39)
[2018-05-03] MEDS: LOVENOX SUBCUT SCH (08:20)
[2018-05-03] MEDS: LANTUS SUBCUT SCH ×2 (08:25→20:40)
--- NOTE | 2018-05-03 10:00 | PN ---
DATE OF SERVICE: 04/30/18 CHIEF COMPLAINT: "I couldn't get my breath." BRIEF HISTORY OF PRESENT ILLNESS: Ms. 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 She has CHF, diastolic on echo. She has obesity. Again with all of these she is chronically short of breath. She was seen in the office three to four days ago and admitted with hemoglobin found to be 5. As she was slowly transfused using diuretics between transfusions, we got her hemoglobin to 9. Unfortunately the evening of the she had acute and sudden onset of increased shortness of breath and hypoxemia that led to her being intubated and ventilated through the night. We placed her on high dose steroids, continuous to frequent Albuterol nebulized interventions while being sedated on Propofol. She rested. Earlier this afternoon her parameters looked reasonable. The sats started weaning ventilator support and got her to T-tube. She kept her sats with that. Chest x- ray continued to show only emphysema and mild pleural effusion. She has been getting IV Lasix and making some urine. INTERVAL COURSE: We have weaned her IV steroids and she has no increased shortness of breath or cough than before. She is resting at night; she is doing short walks and requires increase in her oxygen to do so. Eating, stooling without diarrhea or constipation. Drinking and voiding without dysuria. REVIEW OF SYSTEMS: GENERAL: Less fatigue and malaise. There is no fever. CHEST: Occasional cough, wheeze and mildly short of breath - not quite her baseline. CARDIOVASCULAR: Denies palpitations or exertional chest pain or ankle edema. GI: Denies nausea, vomiting or diarrhea. Denies heartburn. PHYSICAL EXAMINATION: V/S: Temperature 98.5, pulse 86, sinus, respirations 20, BP 134/58. GENERAL: No obvious distress, obese. CHEST: Diminished, occasional wheeze and crackles. CARDIOVASCULAR: S1, S2 distant without murmur or peripheral edema. GI: Protuberant, obese, nontender without organomegaly. LABS/X-RAYS: White count 15.8, hemoglobin 8.7, both stable. Chemistries show potassium 5.4, BUN 54, GFR 57 and blood sugar 273; patterns all stable. ASSESSMENT: 1. Respiratory failure, hypoxic acute and chronic. 2. Respiratory failure, hypercarbic, acute. 3. Shortness of breath, acute on chronic. 4. Anemia, hemoglobin of 5 - transfused. 5. Ventilator support - 04/24 through 04/25/18. 6. Gait difficulties - acute on chronic. 7. Diffuse weakness. 8. Brief NPO status. # Phillips. # Leukocytosis - probably secondary to steroid use. PLAN: 1. Medicines reviewed - we are going to try to switch from IV steroids to oral. 2. Laboratories - no change. 3. Consults - none. 4. Diet - same. 5. Fluids - none. 6. Discharge planning - expects home. 7. Code status - DNR. 8. Imaging - none needed. [facility]
--- NOTE | 2018-05-03 11:31 | PN ---
DATE OF SERVICE: 05/02/18 CHIEF COMPLAINT: "I couldn't get my breath." BRIEF HISTORY OF PRESENT ILLNESS: Ms. 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 She has CHF, diastolic on echo. She has obesity. Again with all of these she is chronically short of breath. She was seen in the office three to four days ago and admitted with hemoglobin found to be 5. As she was slowly transfused using diuretics between transfusions, we got her hemoglobin to 9. Unfortunately the evening of the she had acute and sudden onset of increased shortness of breath and hypoxemia that led to her being intubated and ventilated through the night. We placed her on high dose steroids, continuous to frequent Albuterol nebulized interventions while being sedated on Propofol. She rested. Earlier this afternoon her parameters looked reasonable. The sats started weaning ventilator support and got her to T-tube. She kept her sats with that. Chest x- ray continued to show only emphysema and mild pleural effusion. She has been getting IV Lasix and making some urine. INTERVAL COURSE: She continues to have less shortness of breath and cough and in general malaise. She feels much better. She is sleeping well at night. Randall is coming to look at her machine because they do not think it is working. She is eating and stooling. She is drinking and voiding without dysuria. She has walked with physical therapy. REVIEW OF SYSTEMS: GENERAL: Denies significant pain. NECK: No pain. CHEST: Less wheeze. CARDIOVASCULAR: Denies palpitations or ankle edema. GI: No pain, vomiting or nausea. MEDICATIONS: Reviewed. LABS/X-RAYS: Labs are due tomorrow. PHYSICAL EXAMINATION: V/S: Temperature 97.6, pulse 86, respiratory rate 24, BP 114/56. GENERAL: No obvious distress, obese. CHEST: Clear and slightly reduced. CARDIOVASCULAR: S1, S2 distant without murmur or peripheral edema. GI: Protuberant, obese, nontender without organomegaly. ASSESSMENT: 1. Respiratory failure, hypoxic acute and chronic. 2. Respiratory failure, hypercarbic, acute. 3. Shortness of breath, acute on chronic. 4. Anemia, hemoglobin of 5 - transfused. 5. Ventilator support - 04/24 through 04/25/18. 6. Gait difficulties - acute on chronic. 7. Diffuse weakness. 8. Brief NPO status. # Phillips. # Leukocytosis - probably secondary to steroid use. DISCUSSION: She continues to have less chest congestion, wheeze and improvement in pulmonary function as we continue to actually wean her. PLAN: 1. Medications reviewed - wean tomorrow on steroids. 2. Labs are due tomorrow - weekly CBC and CMP. 3. Imaging -none. 4. Diet - same. 5. Fluids oral and encourage. 6. Activity - PT and increase, working with respiratory. 7. D/C plans - she is hoping for home on Tuesday. 8. Code Status - DNR. ADDENDUM: Dr. Sun feels that Ms. Green will benefit from a hospital bed to elevate head of bed due to chronic respiratory failure. MTDD
[2018-05-03] MEDS: REQUIP PO SCH (20:39)
[2018-05-03] MEDS: ZOCOR PO SCH (20:40)
[2018-05-04] MEDS: DUONEB NEB SCH ×4 (04:22→23:55)
[2018-05-04] MEDS: LASIX TAB PO SCH ×2 (05:58→16:47)
[2018-05-04] MEDS: PROTONIX PO SCH (05:58)
[2018-05-04] MEDS: HUMALOG SUBCUT SCH ×3 (06:01→16:53)
[2018-05-04] MEDS: DIABETA PO SCH ×2 (09:38→16:47)
[2018-05-04] MEDS: TRADJENTA PO SCH (09:38)
[2018-05-04] MEDS: PLAVIX PO SCH (09:39)
[2018-05-04] MEDS: PREDNISONE PO SCH ×2 (09:39→16:47)
[2018-05-04] MEDS: NEURONTIN PO SCH ×3 (09:39→20:53)
[2018-05-04] MEDS: LOTENSIN PO SCH (09:39)
[2018-05-04] MEDS: COLACE PO SCH ×2 (09:39→20:53)
[2018-05-04] MEDS: LOVENOX SUBCUT SCH (09:40)
[2018-05-04] MEDS: VITAMIN D PO SCH ×2 (09:40→20:53)
[2018-05-04] MEDS: FERROUS SULFATE PO SCH (09:40)
[2018-05-04] MEDS: LANTUS SUBCUT SCH ×2 (09:41→20:54)
[2018-05-04] MEDS: SYMBICORT 160-4.5 MCG INHALER IH SCH ×2 (09:43→20:52)
[2018-05-04] MEDS: REQUIP PO SCH (20:53)
[2018-05-04] MEDS: ZOCOR PO SCH (20:53)
[2018-05-05] MEDS: DUONEB NEB SCH ×2 (04:54→11:06)
[2018-05-05] MEDS: PROTONIX PO SCH (05:58)
[2018-05-05] MEDS: LASIX TAB PO SCH (05:58)
[2018-05-05] MEDS: HUMALOG SUBCUT SCH ×2 (05:58→11:23)
[2018-05-05 06:00] VITALS: BP 151/61; TEMP 97.7
[2018-05-05] MEDS: SYMBICORT 160-4.5 MCG INHALER IH SCH (08:19)
[2018-05-05] MEDS: FERROUS SULFATE PO SCH (08:20)
[2018-05-05] MEDS: DIABETA PO SCH (08:21)
[2018-05-05] MEDS: TRADJENTA PO SCH (08:21)
[2018-05-05] MEDS: NEURONTIN PO SCH (08:21)
[2018-05-05] MEDS: LOTENSIN PO SCH (08:21)
[2018-05-05] MEDS: COLACE PO SCH (08:21)
[2018-05-05] MEDS: VITAMIN D PO SCH (08:22)
[2018-05-05] MEDS: PREDNISONE PO SCH (08:22)
[2018-05-05] MEDS: PLAVIX PO SCH (08:22)
[2018-05-05] MEDS: LANTUS SUBCUT SCH (08:23)
[2018-05-05] MEDS: LOVENOX SUBCUT SCH (08:26)
--- NOTE | 2018-05-05 11:36 | PN ---
DATE OF SERVICE: 05/04/18 CHIEF COMPLAINT: "I can't get my breath." BRIEF HISTORY OF PRESENT ILLNESS: She came through the office with multiple chronic problems, was very pale. She was admitted here and found to have a hemoglobin of 5. She was cautiously and slowly transfused over several days with unremarkable substrates and no signs of bleeding. Her I & O's were actually not an issue. On the evening of the she suddenly developed increased shortness of breath and hypoxemia that led to being intubated and ventilated despite being a DNR (she changed that). She was treated with high dose steroids, continuous and frequent, nebulized bronchodilators and less than 24 hours of intubation; she was extubated, continuous treatment and has slowly improved. She also was treated with IV diuretics when needed believing there was a mild degree of failure. Chest x- rays never showed anything acute. INTERVAL COURSE: She continues to eat well without diarrhea. She voids without dysuria. Her shortness of breath is improved. Her oxygen levels are stabilizing. She has made a home visit today and hopes for discharge tomorrow. REVIEW OF SYSTEMS: GENERAL: Generalized fatigue, malaise and there is no fever. CHEST: Occasional cough, wheeze, mildly short of breath but back to her baseline. CARDIOVASCULAR: Denies palpitations, exertional chest pain and has usual mild ankle edema. GI: Denies nausea, vomiting, diarrhea or heartburn. MEDICATIONS: Reviewed. PHYSICAL EXAMINATION: V/S: Temperature 97.5, pulse 80, respirations 18, BP 136/61. GENERAL: No obvious distress. NECK: No mass or thyroid. CHEST: Diminished and clear. CARDIOVASCULAR: Regular without murmur. Trace peripheral edema. GI: Protuberant, obese, nontender. LABS/X-RAYS: White count Tuesday was 18, hemoglobin 9.9 (8.7). Chemistries showed sodium 141, potassium 4.6, chloride 92, bicarb 43, BUN 36, creatinine 0.80, given GFR of 69 compared to 57. Her blood sugar was 70. ASSESSMENT: 1. Respiratory failure, hypoxic acute and chronic. 2. Respiratory failure, hypercarbic, acute. 3. Shortness of breath, acute on chronic. 4. Anemia, hemoglobin of 5 - transfused. 5. Ventilator support - 04/24 through 04/25/18. 6. Gait difficulties - acute on chronic. 7. Diffuse weakness. 8. Brief NPO status. # Phillips. # Leukocytosis - probably secondary to steroid use. PLAN: 1. Medicines reviewed - we will do a double dose of Lasix tonight as she seems mildly more edematous. 2. Laboratories - no change. 3. Consults - none. 4. Diet same. 5. Fluids encouraged. 6. Discharge planning - expecting tomorrow. 7. Code Status - DNR. 8. Imaging none. MTDD
== END 2018-05-05 14:25 | disposition home or self-care (01) | DRG 189 ==
LOC: UNDOADMIN 10:54 → MEDSURG B 10:54
PROVIDERS: ADMIT Family Medicine; ATTEND Family Medicine
DX: J96.01 Acute respiratory failure with hypoxia (principal); I50.30 Unspecified diastolic (congestive) heart failure; I10 Essential (primary) hypertension; D64.9 Anemia, unspecified; N18.3 Chronic kidney disease, stage 3 (moderate); E11.65 Type 2 diabetes mellitus with hyperglycemia; J44.9 Chronic obstructive pulmonary disease, unspecified; R26.9 Unspecified abnormalities of gait and mobility; Z86.73 Personal history of transient ischemic attack (TIA), and cerebral infarction without residual deficits; Z79.4 Long term (current) use of insulin
CPT/HCPCS: 36415; 80053; 82272; 82962; 85008; 85025; 94150; 94640; 97802

== ENCOUNTER 2018-06-09 11:44 | Outpatient (CLI) | payer OTHER ==
[2018-06-09] MEDS ORDERED: INFED IVP STA (12:20)
[2018-06-09] MEDS ORDERED: INFED 975 MG in SODIUM CHLORIDE 500 ML IV STA (12:21)
[2018-06-09 15:01] VITALS: BP 134/65; TEMP 98.1
== END 2018-06-09 11:45 | disposition home or self-care (01) ==
LOC: OPMED 11:44
PROVIDERS: ATTEND Family Medicine
DX: E61.1 Iron deficiency (principal); K90.9 Intestinal malabsorption, unspecified; D50.9 Iron deficiency anemia, unspecified
CPT/HCPCS: 96365; 96366; 96376

== ENCOUNTER 2018-06-20 11:17 | Emergency (ER) | payer OTHER ==
[2018-06-20 11:20] VITALS: BP 117/63; TEMP 98.7; BMI 34.1
[2018-06-20] MEDS ORDERED: MORPHINE 4 MG/ML VIAL IVP STA (12:02)
--- NOTE | 2018-06-20 12:04 | ED.PDOC ---
General ED Provider: Dr. FINN SANTANA Chief Complaint: Fall Stated Complaint: Pain Lt CHest wall. States she fell in middle of night attempting to use Bathroom. Fell against lt side of chest wall against tub. No other complaints. Time Seen by Physician: 11:30 Mode of Arrival: Wheelchair Information Source: Patient Exam Limitations: No limitations Primary Care Provider: WINSTON SUN Referred to ED by: PCP Nursing and Triage Documentation Reviewed and Agree: Yes Does patient meet sepsis criteria?: No System Inflammatory Response Syndrome: Not Applicable Sepsis Protocol: For patient's 13 years and over: Temp is 96.8 and below OR 101 and greater Pulse >90 BPM Resp >20/minute Acutely Altered Mental Status Are patient's symptoms suggestive of a new infection, such as: -Pneumonia -Skin, Soft Tissue -Endocarditis -UTI -Bone, Joint Infection -Implantable Device -Acute Abdominal Infection -Wound Infection -Meningitis -Blood Stream Catheter Infection -Unknown Musculoskeletal Complaint Exam - Back Pain Complaint/Exam Mechanism of Injury: Reports: Trauma Onset/Duration: 4 hrs Symptoms Are: Still present Episodes Lasting: Minutes Initial Severity: Moderate Current Severity: Moderate Location: Reports: Diffuse (lt ant, lateral and posterior chest wall) Character: Reports: Sharp, Aching, Burning Aggravating: Reports: Movements Alleviating: Reports: Position Associated Signs and Symptoms: Reports: Swelling Related History: Denies: Similar episode TAD Risk Factors: Reports: None AAA Risk Factors: Reports: None Cauda Equina Risk Factors: Reports: None Epidural Abcess Risk Factors: Reports: None Related Surgical History: Reports: None Focal Tenderness: Yes (lt lat costal and mid epigastric) Paraspinal Muscle Tenderness: Yes Paraspinal Muscle Spasm: Yes Scoliosis: No Lordosis: No Kyphosis: No SLR Test: Right Negative, Left Negative Hip Motion Testing Pain: Right Negative, Left Negative Focal Weakness: Present: None Focal Sensory Loss: Present: None Gait: Present: Unable Differential Diagnoses: Fracture, Strain, Sprain Review of Systems - Review Of Systems Constitutional: Reports: Weakness Eyes: Reports: No symptoms Ears, Nose, Mouth, Throat: Reports: No symptoms Respiratory: Reports: No symptoms Cardiac: Reports: No symptoms GI: Reports: No symptoms : Reports: No symptoms Musculoskeletal: Reports: Back pain, Muscle pain, Other (Rib pain) Skin: Reports: No symptoms Neurological: Reports: No symptoms Endocrine: Reports: No symptoms Hematologic/Lymphatic: Reports: No symptoms All Other Systems: Reviewed and Negative Past Medical History - Past Medical History Previously Healthy: No Endocrine: Reports: DM 2 Cardiovascular: Reports: CAD, [place] Respiratory: Reports: COPD Hematological: Reports: None Gastrointestinal: Reports: None Genitourinary: Reports: None Neuro/Psych: Reports: None Musculoskeletal: Reports: None Cancer: Reports: None Last Menstrual Period: none - Surgical History General Surgical History: Reports: Hysterectomy, Cholecystectomy, Other (-spot taken off rt breast) - Family History Family History: Reports: None - Social History Smoking Status: Former smoker Hx Substance Use: No Alcohol Screening: None Physical Exam - Physical Exam Appearance: Well-appearing, No pain distress, Well-nourished, Obese Ill-appearing: None Pain Distress: Mild Eyes: ALFRED, EOMI, Conjunctiva clear ENT: Ears normal, Nose normal, Oropharynx normal Neck: Supple Respiratory: Airway patent, Breath sounds clear, Breath sounds equal Cardiovascular: RRR, Pulses normal, No rub, No murmur GI/: Soft, Nontender, No masses, Bowel sounds normal, No Organomegaly Musculoskeletal: Normal strength, ROM intact, No edema, No calf tenderness Skin: Warm, Dry, Normal color Neurological: Sensation intact, Motor intact, Reflexes intact, Cranial nerves intact, Alert, Oriented Interpretation - Radiology Interpretation Exam Interpreted: CT Scan (Chest-No Rib Fx; Mild RLL infiltrate/mild rt plerual effusion/emphysema;(no clinical findings of resp congestion) advsed chronic changes. CT Abdomen: pancreatic calcifications, mild bibasilar consolication R/ O atelectasis vs pneumonia vs aspiration(no clinical findings) ) Critical Care Note - Critical Care Note Total Time (mins): 60 Course - Course Hematology/Chemistry: 06/20/18 12:14 06/20/18 12:14 Orders, Labs, Meds: Lab Review 06/20/18 06/20/18 06/20/18 12:14 12:14 13:00 WBC 11.42 H RBC 3.60 L Hgb 9.8 L Hct 33.4 L MCV 92.8 MCH 27.2 MCHC 29.3 L RDW Coeff of Chuy 20.3 H Plt Count 225 Immature Gran % (Auto) 1.7 Neut % (Auto) 78.2 Lymph % (Auto) 13.2 Ralls % (Auto) 5.4 Eos % (Auto) 0.8 Baso % (Auto) 0.7 Immature Gran # (Auto) 0.2 Neut # (Auto) 8.9 H Lymph # (Auto) 1.5 Ralls # (Auto) 0.6 Eos # (Auto) 0.1 Baso # (Auto) 0.1 Hypochromasia 1+ Poikilocytosis 3+ Anisocytosis 2+ Stomatocytes 2+ Sodium 139.0 Potassium 5.04 Chloride 96.7 L Carbon Dioxide 36.3 H Anion Gap 11.04 BUN 46.4 H Creatinine 1.08 Estimated GFR (MDRD) 49.00 BUN/Creatinine Ratio 42.96 Glucose 209.9 H Calcium 9.57 Total Bilirubin 0.28 AST 28.3 ALT 36.8 H Alkaline Phosphatase 59.9 Total Creatine Kinase 39.3 Troponin I < 0.012 Total Protein 7.68 Albumin 4.38 Globulin 3.30 Albumin/Globulin Ratio 1.32 Urine Color Yellow Urine Clarity Cloudy Urine pH 5.5 Ur Specific [place] 1.010 Urine Protein Negative Urine Glucose (UA) Negative Urine Ketones Negative Urine Blood Trace-lysed Urine Nitrite Negative Urine Bilirubin Negative Urine Urobilinogen 0.2 Ur Leukocyte Esterase 3+ Urine Microscopic RBC 0-2 Urine Microscopic WBC Tntc Ur Squamous Epith Cells Not present Urine Bacteria 4+ Orders Category Date Time Status EKG-(ED ONLY) Stat CARDIO 06/20/18 11:59 Completed IV [ED IV/MEDIPORT/POWERPORT] .ONCE EMERGENCY 06/20/18 11:59 Active CBC W/ AUTO DIFF Stat LAB 06/20/18 12:14 Completed CMP [COMPREHENSIVE METABOLIC PANEL] Stat LAB 06/20/18 12:14 Completed CPK [CREATINE KINASE] Stat LAB 06/20/18 12:14 Completed RBC MORPHOLOGY Stat LAB 06/20/18 12:14 Completed TROPONIN I Stat LAB 06/20/18 12:14 Completed UA [URINALYSIS C & S IF INDICATED] Stat LAB 06/20/18 13:00 Completed URINE CULTURE Stat LAB 06/20/18 13:00 Completed 0.9 % Sodium Chloride [Saline Flush] MEDS 06/20/18 11:59 Discontinued 1 syr IVF PRN PRN Morphine Sulfate [Morphine 4 mg/ml Syringe] MEDS 06/20/18 12:26 Discontinued 4 mg IVP ONCE STA Ondansetron HCl/Pf [Zofran 4 mg/2 ml] MEDS 03/12/19 12:01 Discontinued 4 [address] IVP ONCE STA CT ABDOMEN W/O CONTRAST Stat RADS 06/20/18 11:[address] CHEST W/O CONTRAST Stat RADS 06/20/18 12:00 Completed Medications Discontinued Medications Generic Name Dose Route Start Last Admin Trade Name Freq PRN Reason Stop Dose Admin Morphine Sulfate 4 mg 06/20/18 12:26 06/20/18 13:06 Morphine 4 Mg/Ml Syringe IVP 06/20/18 12:27 4 mg ONCE STA Administration Ondansetron HCl 4 mg 06/20/18 12:01 06/20/18 13:06 Zofran 4 Mg/2 Ml IVP 06/20/18 12:02 4 mg ONCE STA Administration Sodium Chloride 1 syr 06/20/18 11:59 06/20/18 13:07 Saline Flush IVF 1 syr PRN PRN Administration To flush IV Vital Signs: Temp Pulse Resp BP Pulse Ox 06/20/18 11:17 98.7 F 80 22 117/63 95 Departure - Departure Time of Disposition: 15:20 Disposition: HOME SELF-CARE Discharge Problem: Contusion of left chest wall, COPD (chronic obstructive pulmonary disease) Instructions: Contusion in Adults (ED) Condition: Good Pt referred to PMD for follow-up: No (spoke with Dr Sun) IPMP verified?: No Additional Instructions: Use walker Use Bedside commode Home PT Offered referral to [facility] but states has home health and PT there/Defers Remain on home meds per Dr Sun Take Tylenol for pain Allergies/Adverse Reactions: Allergies diazepam [From Valium] Adverse Reaction (Verified 06/20/18 11:20) Iodinated Contrast- Oral and IV Dye [Iodinated Contrast Media - Oral and] Adverse Reaction (Verified 06/20/18 11:20) Home Medications: Ambulatory Orders Benazepril HCl 20 mg PO DAILY 05/04/16 Clopidogrel Bisulfate [Clopidogrel] 75 mg PO DAILY 05/04/16 Furosemide [Lasix Tab] 40 mg PO DAILY 05/04/16 Gabapentin [Neurontin] 200 mg PO DAILY 05/04/16 Pantoprazole Sodium [Protonix] 40 mg PO QDAC 05/04/16 Simvastatin [Zocor] 40 mg PO BEDTIME 05/04/16 Albuterol Sulfate [Proair Hfa] 2 puff IH Q4H 06/14/17 Budesonide/Formoterol Fumarate [Symbicort 160-4.5 Mcg Inhaler] 1 puff IH BID Ferrous Sulfate [Feosol] 325 mg PO DAILY #30 tablet 09/25/16 Ipratropium/Albuterol Neb [Duoneb] 1 vial NEB QID #1 vial.neb 09/25/16 Cholecalciferol (Vitamin D3) [Vitamin D3] 1,000 unit PO BID 07/04/17 Gabapentin 400 mg PO BEDTIME 07/04/17 Acetaminophen [Tylenol] 1 tab PO Q6H PRN 04/20/18 Aspirin/Caffeine [Anacin 400-32 mg Tablet] 2 tab PO Q6H PRN 04/20/18 Docusate Sodium [Colace] 1 cap PO BID 04/20/18 Insulin Lispro [Humalog] 10 unit SQ TIDAC 04/20/18 Linagliptin [Tradjenta] 5 mg PO DAILY 04/20/18 Ropinirole HCl [Requip] 3 mg PO BEDTIME 04/21/18 Insulin Glargine,Hum.rec.anlog [Lantus] 50 unit SUBCUT BID #1 ml 05/05/18 Prednisone 20 mg PO BID #100 tablet 05/05/18 Disposition Discussed With: Patient, Family
--- NOTE | 2018-06-20 12:58 | CT ---
EXAM: CT of the chest without contrast History: left chest trauma, chest pain. Comparison: CT abdomen pelvis 06/20/2018, chest CT 07/04/2017 Technique: Multiplanar CT images through the thorax were obtained without the administration of IV c ontrast. 3-D reconstructions through the ribs were also obtained. Findings: Heart is borderline enlarged. Coronary calcifications. No pericardial effusion. No thor acic aortic aneurysm. No axillary lymphadenopathy. No pathologically enlarged mediastinal or hilar lymph nodes. The right basilar infiltrate and small right pleural effusion. No pneumothorax. Emphy sema. No suspicious lung masses or lung nodules. For details in the upper abdomen, please see dedicated CT abdomen pelvis done on the same day. No ac manny displaced rib fractures are identified. Postsurgical changes of the cervical spine are partially visualized. Impression: 1. No rib fractures are seen. 2. Mild right lower lobe infiltrate could represent aspiration or mild infectious pneumonia. 3. Small right pleural effusion. 4. Emphysema
[2018-06-20] MEDS: MORPHINE 4 MG/ML SYRINGE IVP STA (13:06)
[2018-06-20] MEDS: ZOFRAN 4 MG/2 ML IVP STA (13:06)
--- NOTE | 2018-06-20 13:11 | CT ---
EXAM: CT abdomen HISTORY: Mid epigastric pain after fall TECHNIQUE: CT abdomen without contrast. Multiplanar images provided. FINDINGS: No comparison. No focal hepatic lesion. Spleen within normal limits. Gallbladder is absent. There are some calcif ications near the pancreatic head which may be vascular in nature or a sign of chronic pancreatitis. Bilateral nonspecific perinephric fat stranding. No hydronephrosis. Mild to moderate vascular calc ifications. Stomach is within normal limits. Distal colon diverticulosis is moderate. No ascites. There is a tiny fatty umbilical hernia with a transverse neck of 4 mm. There are subcutaneous opacit ies along the upper pelvis which may represent contusions. The bones reveal degenerative disc diseas e and osteophytic spurring of the spine with transitional vertebral body anatomy at the lumbosacral j unction. No fracture. Lung bases reveal bibasilar mild consolidations. No pneumoperitoneum. IMPRESSION: 1. No fracture or internal organ injury identified. There are opacities within the subcutaneous fat of the anterior lower abdomen which may represent contusions possibly from the recent trauma versus areas of medication injection. 2. A few calcifications near or within the pancreatic head may be vascular in nature or indicate chr onic pancreatitis. 3. Atherosclerosis. 4. Mild bibasilar pulmonary consolidations, consider atelectasis or pneumonia.
== END 2018-06-20 15:36 | disposition home or self-care (01) ==
LOC: ED 11:17
DX: S20.212A Contusion of left front wall of thorax, initial encounter (principal); W19.XXXA Unspecified fall, initial encounter; J44.9 Chronic obstructive pulmonary disease, unspecified; R53.1 Weakness; M54.9 Dorsalgia, unspecified; M79.10 Myalgia, unspecified site; E11.9 Type 2 diabetes mellitus without complications; I25.10 Atherosclerotic heart disease of native coronary artery without angina pectoris; I25.2 Old myocardial infarction; Z79.4 Long term (current) use of insulin; Z79.899 Other long term (current) drug therapy
CPT/HCPCS: 36415; 80053; 81001; 82550; 84484; 85008; 85025; 87086; 87186; 93005; 93010; 96374; 96375; 99283

== ENCOUNTER 2018-12-09 14:03 | Emergency (ER) ==
[2018-12-09 14:13] VITALS: BP 131/76; TEMP 98.3; BMI 32.4
[2018-12-09] MEDS ORDERED: DUONEB NEB STA (15:40)
--- NOTE | 2018-12-09 15:49 | CT ---
EXAM: CT of the head without contrast. HISTORY: Fall. COMPARISON: None available. TECHNIQUE: Noncontrast CT of the head. FINDINGS: No intracranial hemorrhage or mass effect is identified. There is moderate prominence of the sulci a nd mild prominence of the ventricles. Mild bicerebral periventricular white matter hypodensities are identified. No waller white matter differentiation loss is seen to suggest an acute infarct. Intracra nial calcified atherosclerotic plaque is seen. The calvarium is intact. The visualized paranasal sinuses are unopacified. IMPRESSION: No evidence of an acute intracranial process. Moderate atrophy Mild chronic small vessel ischemic changes.
--- NOTE | 2018-12-09 15:49 | CT ---
EXAM: CT scan of the cervical spine without contrast HISTORY: Fall TECHNIQUE: Helical imaging of the cervical spine was performed without contrast. Sagittal and coron al reconstructions and axial images were provided for interpretation. FINDINGS: The occipital condyles, c1 ring appear intact. No acute abnormalities are seen within the odontoid process and C2 vertebral body. The spinous processes are intact. The patient has had prev ious fusion from the C5 down to the C7 level. There is a normal alignment of the facet joints. No a cute fractures are seen. IMPRESSION: No evidence of acute fracture dislocation seen within the cervical spine.
--- NOTE | 2018-12-09 15:50 | CT ---
EXAM: CT scan of the lumbar spine without contrast HISTORY: Fall TECHNIQUE: Helical imaging of the lumbar spine was performed without contrast. Sagittal and coronal reconstructions and axial images were provided for interpretation. FINDINGS: The alignment of the lumbar spine is normal. There is no evidence of acute compression fr acture. There is no pars defect. The paraspinal soft tissues are normal. No acute fractures are se en within the sacrum. The transverse processes and spinous processes are intact. IMPRESSION: No evidence of acute fracture seen within the lumbar spine.
--- NOTE | 2018-12-09 15:52 | CT ---
EXAM: Noncontrast CT of the thoracic spine HISTORY: Fall COMPARISON: 07/04/2017 TECHNIQUE: Axial noncontrast CT of the thoracic spine with sagittal and coronal reformats. FINDINGS: The thoracic vertebral bodies are normal in height. No thoracic spine fractures are seen. No signif icant listhesis is identified. There is multilevel disc height loss with anterior osteophyte formati on. Multilevel facet arthropathy is also present. Mild multilevel disc osteophyte complex is seen. Cervical ACDF is noted. Emphysematous changes are seen. IMPRESSION: No evidence of acute osseous injury to the thoracic spine. Mild to moderate multilevel thoracic degenerative disc disease.
--- NOTE | 2018-12-09 15:52 | CT ---
EXAM: CT scan of the pelvis without contrast HISTORY: Fall TECHNIQUE: Helical imaging of the pelvis was performed without contrast. Axial images and coronal a nd sagittal reconstructions were provided for interpretation. FINDINGS: The femoral head are seen in normal position. The femoral neck appear intact. There is a normal appearance of the pubic rami. No acute fractures are seen within the iliac wings and sacrum. The soft tissues are normal. IMPRESSION: No acute fracture dislocation seen within the pelvis.
--- NOTE | 2018-12-09 15:55 | CT ---
EXAM: Noncontrast CT of the left shoulder HISTORY: Pain after fall COMPARISON: None available TECHNIQUE: Axial noncontrast CT of the left shoulder with sagittal and coronal reformats. FINDINGS: No fracture or dislocation is identified. There is mild glenohumeral joint space loss and marginal o steophyte formation. There is also mild joint space loss of the acromioclavicular joint. No gross l eft shoulder soft tissue abnormality is seen. There is limited evaluation of the rotator cuff with C T. Emphysematous changes are identified. IMPRESSION: No acute osseous abnormality. 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
--- NOTE | 2018-12-09 15:59 | CT ---
EXAM: CT chest without contrast HISTORY: Fall COMPARISON: 06/20/2018 TECHNIQUE: Multiple axial images of the chest were obtained without intravenous contrast. Images wer e reformatted in the sagittal and coronal planes. FINDINGS: Similar heterogeneous thyroid. Normal heart size. No pericardial effusion. Normal diameter aorta. Mildly enlarged left lower paratracheal lymph node measures 11 mm short axis, unchanged. Precarinal lymph node measures 9 mL short axis, unchanged. No axillary or hilar adenopathy. Moderate/severe emphysematous change, most prominent the right upper lobe. Trace passive atelectasis in the dependent lower lobes. Remaining lungs are clear. No pneumothorax or pleural effusion. No suspicious pulmonary nodule. Lower cervical ACDF changes. Normal thoracic spine alignment. Vertebral body heights are preserved. No acute thoracic spine fracture or spondylolisthesis. No acute findings in the upper abdomen. IMPRESSION: 1. No acute/post-traumatic findings. 2. Trace passive atelectasis in the dependent lower lobes. 3. Emphysema. 4. Unchanged borderline and mildly enlarged mediastinal lymph nodes.
[2018-12-09] MEDS ORDERED: LASIX IVP STA (17:48)
[2018-12-09] MEDS ORDERED: LACTATED RINGERS 1,000 ML IV STA (17:48)
[2018-12-09] MEDS ORDERED: HUMULIN R SUBCUT STA (17:49)
[2018-12-09] MEDS ORDERED: CALCIUM GLUCONATE 10% IVP STA (17:50)
[2018-12-09] MEDS ORDERED: ZOSYN 4.5 GM 4.5 GM in SODIUM CHLORIDE 100 ML IV STA (17:51)
--- NOTE | 2018-12-09 18:39 | ED.PDOC ---
General ED Provider: Dr. PATRIC REILLY Chief Complaint: Fall Stated Complaint: FALL WAS FOUND LAYING ON THE GROUND FO UNKNOWN AMOUNT OF TIME Time Seen by Physician: 14:10 Mode of Arrival: Wheelchair Information Source: Patient Exam Limitations: No limitations Primary Care Provider: WINSTON PRUETT Nursing and Triage Documentation Reviewed and Agree: Yes Does patient meet sepsis criteria?: No System Inflammatory Response Syndrome: Not Applicable Sepsis Protocol: For patient's 13 years and over: Temp is 96.8 and below OR 101 and greater Pulse >90 BPM Resp >20/minute Acutely Altered Mental Status Are patient's symptoms suggestive of a new infection, such as: -Pneumonia -Skin, Soft Tissue -Endocarditis -UTI -Bone, Joint Infection -Implantable Device -Acute Abdominal Infection -Wound Infection -Meningitis -Blood Stream Catheter Infection -Unknown Review of Systems - Review Of Systems Constitutional: Reports: Malaise, Weakness Eyes: Reports: No symptoms Ears, Nose, Mouth, Throat: Reports: No symptoms Respiratory: Reports: No symptoms Cardiac: Reports: No symptoms GI: Reports: No symptoms : Reports: No symptoms Musculoskeletal: Reports: Back pain, Joint pain (LEFT SHOULDER), Neck pain Skin: Reports: No symptoms Neurological: Reports: No symptoms Endocrine: Reports: No symptoms Hematologic/Lymphatic: Reports: No symptoms All Other Systems: Reviewed and Negative Past Medical History - Past Medical History Previously Healthy: No Endocrine: Reports: DM 2 Cardiovascular: Reports: CAD, IA Respiratory: Reports: COPD Hematological: Reports: None Gastrointestinal: Reports: None Genitourinary: Reports: None Neuro/Psych: Reports: None Musculoskeletal: Reports: None Cancer: Reports: None Last Menstrual Period: n/a - Surgical History General Surgical History: Reports: Hysterectomy, Cholecystectomy, Other (-spot taken off rt breast) - Family History Family History: Reports: None - Social History Smoking Status: Former smoker Hx Substance Use: No Alcohol Screening: None - Immunizations Tetanus Shot up to Date: No (unsure) Physical Exam - Physical Exam Appearance: Ill-appearing Eyes: ALFRED, EOMI, Conjunctiva clear ENT: Dry mucosa Respiratory: Airway patent, Breath sounds clear, Breath sounds equal, Respirations nonlabored Cardiovascular: RRR, Pulses normal, No rub, No murmur GI/: Soft, Nontender, No masses, Bowel sounds normal, No Organomegaly Musculoskeletal: Normal strength, ROM intact, No edema, No calf tenderness Skin: Warm, Dry, Normal color Neurological: Sensation intact, Motor intact, Reflexes intact, Cranial nerves intact, Alert, Oriented Psychiatric: Affect appropriate, Mood appropriate Re-Evaluation - Re-Evaluation Time of Re-Evaluation: 15:00 Status: Improved Vital Signs Stable: Yes Pain Level: 0 Appearance: NAD Lungs: Clear Skin: Warm and Dry Neuro: Alert and Oriented X3 CV: RRR - Re-Evaluation Time of Re-Evaluation: 18:38 Status: Improved Vital Signs Stable: Yes Pain Level: 0 Appearance: NAD Skin: Warm and Dry Neuro: Alert and Oriented X3 CV: RRR Physician Notification - Case Discussed Physician Notified: JUAN JOSÉ Time of Notification: 18:38 (TRANSFER TO ICU [facility] [place]) Critical Care Note - Critical Care Note Total Time (mins): 120 Course - Course Hematology/Chemistry: 12/09/18 15:26 12/09/18 15:26 Orders, Labs, Meds: Lab Review 12/09/18 12/09/18 12/09/18 15:26 15:26 15:35 WBC 11.64 H RBC 3.90 L Hgb 11.0 L Hct 36.2 L MCV 92.8 MCH 28.2 MCHC 30.4 L RDW Coeff of Chuy 15.7 H Plt Count 200 Immature Gran % (Auto) 1.1 Neut % (Auto) 80.0 Lymph % (Auto) 10.8 [place] % (Auto) 7.5 Eos % (Auto) 0.2 Baso % (Auto) 0.4 Immature Gran # (Auto) 0.1 Neut # (Auto) 9.3 H Lymph # (Auto) 1.3 [place] # (Auto) 0.9 Eos # (Auto) 0.0 Baso # (Auto) 0.1 Puncture Site O2 Saturation ABG pH ABG pCO2 ABG pO2 ABG HCO3 ABG Total CO2 ABG Base Excess O2 Delivery Device Oxygen Liter Flow Sodium 134.9 Potassium 5.20 H Chloride 93.8 L Carbon Dioxide 36.6 H Anion Gap 9.70 BUN 56.5 H Creatinine 1.27 Estimated GFR (MDRD) 40.00 BUN/Creatinine Ratio 44.48 Glucose 602.9 H* Lactic Acid Calcium 8.86 Total Bilirubin 0.35 AST 187.5 H ALT 100.0 H Alkaline Phosphatase 112.9 Total Creatine Kinase 5798.6 H CK-MB (CK-2) 37.400 H* CK-MB (CK-2) % 0.6400 Troponin I 0.411 H Total Protein 7.17 Albumin 4.05 Globulin 3.12 Albumin/Globulin Ratio 1.29 Urine Color Light Urine Clarity Cloudy Urine pH 5.5 Ur Specific [place] 1.010 Urine Protein Trace Urine Glucose (UA) 2+ Urine Ketones Negative Urine Blood 3+ Urine Nitrite Negative Urine Bilirubin Negative Urine Urobilinogen 0.2 Ur Leukocyte Esterase 1+ Urine Microscopic WBC Tntc Ur Squamous Epith Cells Not present 12/09/18 12/09/18 17:52 18:03 WBC RBC Hgb Hct MCV MCH MCHC RDW Coeff of Chuy Plt Count Immature Gran % (Auto) Neut % (Auto) Lymph % (Auto) [place] % (Auto) Eos % (Auto) Baso % (Auto) Immature Gran # (Auto) Neut # (Auto) Lymph # (Auto) [place] # (Auto) Eos # (Auto) Baso # (Auto) Puncture Site Rbrach O2 Saturation 91.0 L ABG pH 7.381 ABG pCO2 60.4 H ABG pO2 64.0 L ABG HCO3 35.8 H ABG Total CO2 38 H ABG Base Excess 11 H O2 Delivery Device Nc Oxygen Liter Flow 3.00 Sodium Potassium Chloride Carbon Dioxide Anion Gap BUN Creatinine Estimated GFR (MDRD) BUN/Creatinine Ratio Glucose Lactic Acid 1.41 Calcium Total Bilirubin AST ALT Alkaline Phosphatase Total Creatine Kinase CK-MB (CK-2) CK-MB (CK-2) % Troponin I Total Protein Albumin Globulin Albumin/Globulin Ratio Urine Color Urine Clarity Urine pH Ur Specific [place] Urine Protein Urine Glucose (UA) Urine Ketones Urine Blood Urine Nitrite Urine Bilirubin Urine Urobilinogen Ur Leukocyte Esterase Urine Microscopic WBC Ur Squamous Epith Cells Orders Category Date Time Status ABG DRAW REQUEST Stat CARDIO 12/09/18 17:52 Ordered EKG-(ED ONLY) Stat CARDIO 12/09/18 14:24 Completed NEBULIZER TREATMENT Stat CARDIO 12/09/18 15:41 Completed ABG Stat LAB 12/09/18 17:52 Completed BLOOD CULTURE Stat LAB 12/09/18 18:24 Received CBC W/ AUTO DIFF Stat LAB 12/09/18 15:26 Completed COMPREHENSIVE METABOLIC PANEL Stat LAB 12/09/18 15:26 Completed CREATINE KINASE Stat LAB 12/09/18 15:26 Completed LACTIC ACID Stat LAB 12/09/18 18:03 Completed TROPONIN I Stat LAB 12/09/18 15:26 Completed URINALYSIS C & S IF INDICATED Stat LAB 12/09/18 15:35 Completed URINE CULTURE Stat LAB 12/09/18 15:51 Received Calcium Gluconate Inj [Calcium Gluconate 10%] MEDS 12/09/18 17:50 Discontinued 1,000 mg IVP ONCE STA Furosemide [Lasix] MEDS 12/09/18 17:48 Discontinued 40 mg IVP ONCE STA Insulin Regular, Human [Humulin R] MEDS 12/09/18 17:49 Discontinued 10 unit SUBCUT ONCE STA Ipratropium/Albuterol Neb [Duoneb] MEDS 12/09/18 15:40 Discontinued 1 vial NEB ONCE STA Piperacillin Sodium/Tazobactam [Zosyn 4.5 gm] 4.5 gm MEDS 12/09/18 17:51 Active 0.9 % Sodium Chloride [Sodium Chloride] 100 ml IV ONCE Ringers Lactated Solution [Lactated Ringers] 1,000 ml MEDS 12/09/18 17:48 Active IV 125 mls/hr CT CERVICAL SPINE W/O CONTRAST Stat RADS 12/09/18 14:[address] CHEST W/O CONTRAST Stat RADS 12/09/18 14:[address] HEAD W/O CONTRAST Stat RADS 12/09/18 14:[address] LUMBAR SPINE W/O CONTRAST Stat RADS 12/09/18 14:[address] PELVIS W/O CONTRAST Stat RADS 12/09/18 14:[address] SHOULDER LEFT W/O CONTRAST Stat RADS 12/09/18 14:[address] THORACIC SPINE W/O CONTRAST Stat RADS 12/09/18 14:25 Completed Medications Generic Name Dose Route Start Last Admin Trade Name Freq PRN Reason Stop Dose Admin Lactated Ringer's 1,000 mls @ 125 mls/hr 12/09/18 17:48 12/09/18 18:28 Lactated Ringers IV 12/10/18 01:47 125 mls/hr .Q8H STA Administration Piperacillin Sod/Tazobactam 100 mls @ 100 mls/hr 12/09/18 17:51 Sod 4.5 gm/ Sodium Chloride IV 12/09/18 18:50 ONCE STA Discontinued Medications Generic Name Dose Route Start Last Admin Trade Name Freq PRN Reason Stop Dose Admin Albuterol/Ipratropium 1 vial 12/09/18 15:40 12/09/18 15:50 Duoneb NEB 12/09/18 15:41 1 vial ONCE STA Administration Calcium Gluconate 1,000 mg 12/09/18 17:50 12/09/18 18:14 Calcium Gluconate 10% IVP 12/09/18 17:51 1,000 mg ONCE STA Administration Furosemide 40 mg 12/09/18 17:48 12/09/18 18:14 Lasix IVP 12/09/18 17:49 40 mg ONCE STA Administration Insulin Human Regular 10 unit 12/09/18 17:49 12/09/18 18:08 Humulin R SUBCUT 12/09/18 17:50 10 unit ONCE STA Administration Vital Signs: Temp Pulse Resp BP Pulse Ox 12/09/18 14:04 98.3 F 91 H 18 131/76 95 Departure - Departure Time of Disposition: 18:41 Disposition: TSF SHORT-TRM HOSP Discharge Problem: Acute renal failure due to rhabdomyolysis, Hyperkalemia, Anemia Renal failure Qualifiers: Renal failure chronicity: unspecified chronicity Qualified Code(s): N19 - Unspecified kidney failure Uncontrolled diabetes mellitus Qualifiers: Diabetes mellitus type: other specified (including EMETERIO) Glycemic state: with hyperglycemia Qualified Code(s): E13.65 - Other specified diabetes mellitus with hyperglycemia Condition: Good Pt referred to PMD for follow-up: Yes (TRANSFER ) IPMP verified?: Yes Additional Instructions: Please call your Family Physician as soon as possible to schedule a follow-up appointment. Allergies/Adverse Reactions: Allergies diazepam [From Valium] Adverse Reaction (Verified 12/09/18 14:21) Iodinated Contrast Media [Iodinated Contrast Media - Oral and] Adverse Reaction (Verified 12/09/18 14:21) Home Medications: Ambulatory Orders Benazepril HCl 20 mg PO DAILY 05/04/16 Clopidogrel Bisulfate [Clopidogrel] 75 mg PO DAILY 05/04/16 Furosemide [Lasix Tab] 40 mg PO DAILY 05/04/16 Gabapentin [Neurontin] 200 mg PO DAILY 05/04/16 Pantoprazole Sodium [Protonix] 40 mg PO QDAC 05/04/16 Simvastatin [Zocor] 40 mg PO BEDTIME 05/04/16 Albuterol Sulfate [Proair Hfa] 2 puff IH Q4H 09/22/16 Budesonide/Formoterol Fumarate [Symbicort 160-4.5 Mcg Inhaler] 1 puff IH BID Ferrous Sulfate [Feosol] 325 mg PO DAILY #30 tablet 09/25/16 Ipratropium/Albuterol Neb [Duoneb] 1 vial NEB QID #1 vial.neb 09/25/16 Cholecalciferol (Vitamin D3) [Vitamin D3] 1,000 unit PO BID 07/04/17 Gabapentin 400 mg PO BEDTIME 07/04/17 Acetaminophen [Tylenol] 1 tab PO Q6H PRN 04/20/18 Aspirin/Caffeine [Anacin 400-32 mg Tablet] 2 tab PO Q6H PRN 04/20/18 Docusate Sodium [Colace] 1 cap PO BID 04/20/18 Insulin Lispro [Humalog] 10 unit SQ TIDAC 04/20/18 Linagliptin [Tradjenta] 5 mg PO DAILY 04/20/18 Ropinirole HCl [Requip] 3 mg PO BEDTIME 04/21/18 Insulin Glargine,Hum.rec.anlog [Lantus] 50 unit SUBCUT BID #1 ml 05/05/18 Prednisone 20 mg PO BID #100 tablet 05/05/18 Transfer Form Completed: Yes Disposition Discussed With: Patient
== END 2018-12-09 20:29 | disposition short-term general hospital (02) ==
LOC: ED 14:03
DX: N17.9 Acute kidney failure, unspecified (principal); M62.82 Rhabdomyolysis; E87.5 Hyperkalemia; E13.65 Other specified diabetes mellitus with hyperglycemia; D64.9 Anemia, unspecified; Z79.4 Long term (current) use of insulin; Z79.899 Other long term (current) drug therapy; W19.XXXA Unspecified fall, initial encounter; I25.2 Old myocardial infarction; I25.10 Atherosclerotic heart disease of native coronary artery without angina pectoris; J44.9 Chronic obstructive pulmonary disease, unspecified
CPT/HCPCS: 36415; 80053; 81001; 82550; 82553; 82803; 83605; 84484; 85025; 87040; 87086; 87186; 93005; 93010; 94640; 94660; 96361; 96365; 96375; 99285

== ENCOUNTER 2018-12-09 20:38 | Outpatient (CLI) | payer OTHER ==
[2018-12-09 14:13] VITALS: BMI 32.4
== END 2018-12-09 21:01 | disposition short-term general hospital (02) ==
LOC: AMBL 20:38
PROVIDERS: ATTEND Emergency Medicine
DX: E87.5 Hyperkalemia (principal); R73.9 Hyperglycemia, unspecified; R06.03 Acute respiratory distress; Z99.81 Dependence on supplemental oxygen

== ENCOUNTER 2019-12-31 14:05 | Inpatient (IN) ==
--- NOTE | 2019-12-31 14:48 | ED.PDOC ---
General ED Provider: Dr. KALPESH VIGIL MD Chief Complaint: Urinary Problem Stated Complaint: bilateral leg edema, decreased urinary output Time Seen by Physician: 14:36 Mode of Arrival: Walk-In Information Source: Patient Primary Care Provider: WINSTON SUN Nursing and Triage Documentation Reviewed and Agree: Yes Does patient meet sepsis criteria?: No System Inflammatory Response Syndrome: Not Applicable Sepsis Protocol: For patient's 13 years and over: Temp is 96.8 and below OR 101 and greater Pulse >90 BPM Resp >20/minute Acutely Altered Mental Status Are patient's symptoms suggestive of a new infection, such as: -Pneumonia -Skin, Soft Tissue -Endocarditis -UTI -Bone, Joint Infection -Implantable Device -Acute Abdominal Infection -Wound Infection -Meningitis -Blood Stream Catheter Infection -Unknown Complaint Exam Complaint/Exam Patient Complains of: Denies Pain (bilateral LE edema, decreased urinary output) Onset/Duration: ~0300 Symptoms Are: Worse Timing: Constant Episodes of Voiding Over Last 12 Hours: 2 ('dribbled' 2-3 times. Patient states, "I didn't pee, I just dribbled a little bit".) Initial Severity: Moderate Current Severity: Moderate Location of Pain: Reports None Aggravating: Reports None Alleviating: Reports None Associated Signs and Symptoms: Reports Decreased urine output (bilateral LE edema) and Increased thirst Related History: Denies Similar episode Ectopic Risk Factors: Reports None Ovarian Torsion Risk Factors: Reports None Surgical Obstruction Risk Factors: Reports None Related Surgical History: Reports Hysterectomy Abdominal Findings: Present None Differential Diagnoses: UTI and Other Review of Systems Review Of Systems Constitutional: Reports No symptoms Cardiac: Reports Edema (bilateral LEs) : Reports Other (decreased urinary output) All Other Systems: Reviewed and Negative [facility] Medical History (Updated 12/31/19 @ 17:17 by KALPESH VIGIL MD) Anemia Asthma Cataracts, bilateral CHF (congestive heart failure) Chronic headaches COPD (chronic obstructive pulmonary disease) Coronary artery disease CVA (cerebral vascular accident) Diabetes Diverticulosis Gall stones GERD (gastroesophageal reflux disease) Heart attack Hiatal hernia History of prior pregnancies Ovarian cyst Palpitations Pneumonia Renal disease Rheumatoid arthritis Sleep apnea TIA (transient ischemic attack) Ulcer Family History Mother Cardiac disorder FATHER Cardiac disorder FATHER Thyroid disease Mother Thyroid disease Social History History of recent travel: No Female Reproductive History Menstrual Hx Hysterectomy: Yes Hx Tubal Ligation: No Physical Exam Physical Exam Appearance: Reports Ill-appearing and Obese Ill-appearing: Mild Pain Distress: None Eyes: Reports ALFRED, EOMI and Conjunctiva clear ENT: Reports Nose normal Neck: Nonsupple Respiratory: Reports Airway patent, Breath sounds equal, Breath sounds diminished and Wheezes Cardiovascular: Reports RRR GI/: Reports Soft and Bowel sounds hypoactive Musculoskeletal: Reports Normal strength (age appropriate) Skin: Reports Warm, Dry and Normal color Neurological: Reports Sensation intact, Motor intact, Cranial nerves intact, Alert and Oriented Psychiatric: Reports Affect appropriate and Mood appropriate Critical Care Note Critical Care Note Total Time (mins): 0 Course Course Hematology/Chemistry: 01/01/20 04:54 01/01/20 04:54 Orders, Labs, Meds: Lab Review 12/31/19 12/31/19 12/31/19 15:08 15:08 16:58 WBC 8.46 RBC 3.41 L Hgb 9.6 L Hct 33.3 L MCV 97.7 MCH 28.2 MCHC 28.8 L RDW Coeff of Chuy 17.5 H Plt Count 240 Immature Gran % (Auto) 0.8 Neut % (Auto) 86.1 H Lymph % (Auto) 9.2 L [place] % (Auto) 3.4 Eos % (Auto) 0.0 Baso % (Auto) 0.5 Neut # (Auto) 7.3 H Lymph # (Auto) 0.8 [place] # (Auto) 0.3 L Eos # (Auto) 0.0 Baso # (Auto) 0.0 Immature Gran # (Auto) 0.1 Polychromasia 1+ Hypochromasia 1+ Poikilocytosis 1+ Anisocytosis 2+ Stomatocytes 1+ Sodium 136.7 Potassium 5.20 H Chloride 94.9 L Carbon Dioxide 39.5 H Anion Gap 7.50 BUN 26.1 H Creatinine 0.83 Estimated GFR (MDRD) 66.00 BUN/Creatinine Ratio 31.44 Glucose 340.8 H Calcium 8.91 Magnesium 2.17 Total Bilirubin 0.30 AST 61.3 H ALT 175.5 H Alkaline Phosphatase 199.5 H NT-Pro-B Natriuret Pep 237.000 Total Protein 6.53 Albumin 3.66 Globulin 2.87 Albumin/Globulin Ratio 1.27 Urine Color Yellow Urine Clarity Clear Urine pH 7.0 Ur Specific [place] 1.020 Urine Protein Negative Urine Glucose (UA) 2+ H Urine Ketones Negative Urine Blood Negative Urine Nitrite Negative Urine Bilirubin Negative Urine Urobilinogen 0.2 Ur Leukocyte Esterase Negative Orders Category Date Time Status OXYGEN Routine CARDIO 12/31/19 17:22 Active BLOOD GLUCOSE MONITORING 0630,1100,1700,2100 CARE 12/31/19 17:24 Active GIVE HS SNACK 2100 CARE 12/31/19 17:21 Active INTAKE & OUTPUT Q8HR CARE 12/31/19 17:20 Completed VITAL SIGNS Q8HR CARE 12/31/19 17:20 Completed VTE PREVENTION .SCD 24 Hours CARE 12/31/19 17:19 Active ADA 1800 SHAHEEN. DIET DIETARY 12/31/19 Dinner Ordered HS SNACK DIETARY 12/31/19 Dinner Ordered ED IV/MEDIPORT/POWERPORT .ONCE EMERGENCY 12/31/19 14:51 Active BASIC METABOLIC PANEL DAILY@0600 LAB 01/01/20 04:54 Completed BASIC METABOLIC PANEL DAILY@0600 LAB 01/02/20 06:00 Ordered CBC W/ AUTO DIFF DAILY@0600 LAB 01/01/20 04:54 Completed CBC W/ AUTO DIFF DAILY@0600 LAB 01/02/20 06:00 Ordered CBC W/ AUTO DIFF Stat LAB 12/31/19 15:08 Completed COMPREHENSIVE METABOLIC PANEL Stat LAB 12/31/19 15:08 Completed MAGNESIUM Stat LAB 12/31/19 15:08 Completed NT-PROBNP Stat LAB 12/31/19 15:08 Completed RBC MORPHOLOGY Stat LAB 12/31/19 15:08 Completed STOOL CULTURE Stat LAB 12/31/19 Uncollected URINALYSIS C & S IF INDICATED Stat LAB 12/31/19 16:58 Completed 0.9 % Sodium Chloride [Saline Flush] MEDS 12/31/19 14:51 Active 1 syr IVF PRN PRN Acetaminophen [Tylenol] MEDS 12/31/19 17:24 Active 650 mg PO Q4H PRN Insulin Regular, Human [Humulin R] MEDS 12/31/19 16:41 Discontinued 6 unit IVP ONCE STA Insulin Regular, Human [Humulin R] MEDS 12/31/19 17:29 Discontinued See Dose Instructions SUBCUT PRN PRN Sodium Chloride 0.9% [Sodium Chloride] 1,000 ml MEDS 12/31/19 17:30 Discontinued IV 100 mls/hr Sodium Chloride 0.9% [Sodium Chloride] 500 ml MEDS 12/31/19 14:51 Discontinued IV 100 mls/hr Sodium Chloride 0.9% [Sodium Chloride] 500 ml MEDS 12/31/19 14:51 Discontinued IV BOLUS RESUSCITATION STATUS Routine OTHERS 12/31/19 17:19 Ordered CHEST, 1V AP ONLY Stat RADS 12/31/19 14:51 Completed Medications Generic Name Dose Route Start Last Admin Trade Name Freq PRN Reason Stop Dose Admin Acetaminophen 650 mg 12/31/19 17:24 Acetaminophen 325 Mg Tablet PO Q4H PRN Mild Pain Hydrocodone Bitart/Acetaminophen 1 tab 12/31/19 22:00 Hydrocodone Bit/Acetaminophen 5/325 Mg Tablet PO Q6H PRN Pain Albuterol Sulfate 2 puff 12/31/19 20:00 01/01/20 04:50 Albuterol Sulfate (Ventolin Hfa) 18 Gm 1 Puff With Spacer IH 2 puff RTQID HAROON Administration Benazepril HCl 10 mg 01/01/20 09:00 Benazepril Hcl 10 Mg Tablet PO DAILY HAROON Budesonide/Formoterol Fumarate 2 puff 12/31/19 22:00 12/31/19 21:48 Budesonide/Formoterol Fumarate 160/4.5 Mcg Inhaler IH 2 puff BID HAROON Administration Clopidogrel Bisulfate 75 mg 01/01/20 09:00 Clopidogrel Bisulfate 75 Mg Tablet PO DAILY HAROON Gabapentin 100 mg 12/31/19 22:00 01/01/20 05:57 Gabapentin 100 Mg Capsule PO 100 mg Q8H HAROON Administration Sodium Chloride 1,000 mls @ 50 mls/hr 12/31/19 22:23 01/01/20 01:06 Sodium Chloride IV 50 mls/hr .Q20H HAROON Administration Insulin Detemir 20 unit 12/31/19 22:00 12/31/19 21:53 Insulin Detemir 100 Units/Ml SUBCUT 20 unit BID HAROON Administration Insulin Human Lispro 6 unit 01/01/20 08:30 Insulin Lispro 100 Unit/Ml (3 Ml) Vial SUBCUT BIDWM [facility] Insulin Human Regular 0 unit 12/31/19 22:00 12/31/19 22:00 Insulin Regular, Human 100 Unit/Ml (3ml) Vial SUBCUT 9 unit PRN PRN Administration Hyperglycemia Protocol Ipratropium [place] 2 puff 12/31/19 20:00 01/01/20 04:50 Ipratropium [place] 12.9 Gm Hfa Inhaler Per Puff With Spacer IH 2 puff RTQID HAROON Administration Linagliptin 5 mg 01/01/20 09:00 Linagliptin 5 Mg Tablet PO DAILY HAROON Pantoprazole Sodium 40 mg 01/01/20 06:30 01/01/20 05:57 Pantoprazole Sodium 40 Mg Tablet. PO 40 mg QDAC HAROON Administration Prednisone 10 mg 01/01/20 09:00 Prednisone 10 Mg Tablet PO DAILY HAROON Ropinirole HCl 3 mg 12/31/19 22:00 12/31/19 21:48 Ropinirole Hcl 1 Mg Tablet PO 3 mg BEDTIME HAROON Administration Simvastatin 40 mg 12/31/19 22:00 12/31/19 21:48 Simvastatin 40 Mg Tablet PO 40 mg BEDTIME HAROON Administration Sodium Chloride 1 syr 12/31/19 14:51 12/31/19 17:16 0.9% Sodium Chloride 10 Ml Disp.Syrin IVF 1 syr PRN PRN Administration To flush IV Discontinued Medications Generic Name Dose Route Start Last Admin Trade Name Freq PRN Reason Stop Dose Admin Sodium Chloride 500 mls @ 500 mls/hr 12/31/19 14:51 12/31/19 15:47 Sodium Chloride IV 12/31/19 15:50 500 mls/hr BOLUS STA Administration Sodium Chloride 500 mls @ 100 mls/hr 12/31/19 14:51 12/31/19 17:16 Sodium Chloride IV 12/31/19 19:50 100 mls/hr .Q5H STA Administration Sodium Chloride 1,000 mls @ 100 mls/hr 12/31/19 17:30 Sodium Chloride IV .Q10H HAROON Insulin Human Regular 6 unit 12/31/19 16:41 12/31/19 17:15 Insulin Regular, Human 100 Unit/Ml (3ml) Vial IVP 12/31/19 16:42 6 unit ONCE STA Administration Insulin Human Regular 0 unit 12/31/19 17:29 Insulin Regular, Human 100 Unit/Ml (3ml) Vial SUBCUT PRN PRN Hyperglycemia Patient c/o being unable to urinate, but when asked for a sample she was able to urinate without difficulty. Labs posted, consistent with dehydration, patient given IVF. There were several labs which were outside of the normal range, but nothing acute. She is anemic, but this is chronic. Her Chloride was a touch low, but the IVF should help correct this. Her Potassium was slightly above normal limits, and her Glucose was 340.8. SC Regular Insulin was given to address both. Her bicarb was elevated, consistent with her diagnosis of COPD. There was continued elevation of her LFTs, but this is a chronic issue that can be left for her PCP to address. Patient had a second micturation, without d ifficulty, and without having been asked. Her difficulty in voiding was evidently secondary to mild dehydration. Once given IVF, the problem resolved. She was advised to drink plenty of fluids. I spoke with her PCP, Dr Sun, who wanted me to admit her to his service. He said I should place the admission orders and he would do the H&P. Patient was in good condition when transported from the ED to the floor. Vital Signs: Temp Pulse Resp BP Pulse Ox 12/31/19 14:07 98.8 F 98 H 18 153/66 H 98 Discharge Plan Discharge Patient Disposition: ADMITTED INPATIENT Discharge Problem: Dehydration, mild, Acute renal insufficiency Hyperglycemia due to type 2 diabetes mellitus Qualifiers: Diabetes mellitus medical terminologist insulin use: with nursing home use Qualified Code(s): E11.65 - Type 2 diabetes mellitus with hyperglycemia ED Provider: KALPESH VIGIL Condition: Stable
[2019-12-31] MEDS ORDERED: SODIUM CHLORIDE 500 ML IV STA ×2 (14:51)
[2019-12-31 15:18] LABS: BASOPHILS % (AUTO) 0.5 % (0.0-3.0); HEMATOCRIT 33.3 % (37.0-47.0); HEMOGLOBIN 9.6 g/dl (12.0-16.0); IMMATURE GRANULOCYTE # (AUTO) 0.1 (0.0-1.0); IMMATURE GRANULOCYTE % (AUTO) 0.8 % (0.0-5.0); LYMPHOCYTES # (AUTO) 0.8 K/uL (0.60-3.4); LYMPHOCYTES % (AUTO) 9.2 (10.0-50.0); MEAN CORPUSCULAR HEMOGLOBIN 28.2 pg (27.0-31.0); MEAN CORPUSCULAR HGB CONC 28.8 (31.8-35.4); MEAN CORPUSCULAR VOLUME 97.7 fl (81.0-99.0); MONOCYTES # (AUTO) 0.3 K/uL (0.4-2.0); MONOCYTES % (AUTO) 3.4 (0-10); NEUTROPHILS # (AUTO) 7.3 K/ul (2.0-6.9); NEUTROPHILS % (AUTO) 86.1 % (42.2-75.2); PLATELET COUNT 240 10^3/uL (140-440); RDW COEFFICIENT OF VARIATION 17.5 % (11.6-14.8); RED BLOOD COUNT 3.41 10^6/ul (4.20-5.40); WHITE BLOOD COUNT 8.46 K/ul (4.6-10.2)
[2019-12-31 15:23] LABS: ANISOCYTOSIS 2+ (NOT PRESENT); HYPOCHROMASIA 1+ (NOT PRESENT); POIKILOCYTOSIS 1+ (NOT PRESENT); POLYCHROMASIA 1+ (NOT PRESENT); STOMATOCYTES 1+ (NOT PRESENT)
[2019-12-31 15:31] LABS: ALANINE AMINOTRANSFERASE 175.5 U/L (0-35); ALBUMIN 3.66 g/dL (3.5-5.0); ALKALINE PHOSPHATASE 199.5 U/L (53-141); ASPARTATE AMINO TRANSFERASE 61.3 U/L (14-36); BILIRUBIN,TOTAL 0.3 mg/dL (0.2-1.3); CALCIUM 8.91 mg/dL (8.4-10.2); CHLORIDE 94.9 mmol/L (98-107); CREATININE 0.83 mg/dL (0.60-1.30); GLUCOSE 340.8 mg/dL (74-106); MAGNESIUM 2.17 mg/dL (1.6-2.3); POTASSIUM 5.2 mmol/L (3.5-5.1); SODIUM 136.7 mmol/L (134.5-145); TOTAL PROTEIN 6.53 g/dL (6.3-8.2)
[2019-12-31 15:35] LABS: BLOOD UREA NITROGEN 26.1 mg/dL (7-17)
[2019-12-31 15:37] LABS: CARBON DIOXIDE 39.5 mmol/L (22-30.0)
--- NOTE | 2019-12-31 15:44 | DI ---
EXAM: Single view of the chest. History: Wheezing Comparison: Chest radiograph 07/21/2019 Findings: Heart size is normal. Small right pleural effusion. No definite acute infiltrates. No p neumothorax. No acute osseous abnormalities. Postsurgical changes of the cervical spine. Calcific tendonitis of the bilateral rotator cuffs Impression: A small right pleural effusion
[2019-12-31] MEDS ORDERED: HUMULIN R IVP STA (16:41)
[2019-12-31 17:08] LABS: BILIRUBIN,URINE Negative (NEGATIVE); CLARITY,URINE Clear (CLEAR); COLOR,URINE Yellow (YELLOW); GLUCOSE, URINE (UA) 2+ (NEGATIVE); KETONES,URINE Negative (NEGATIVE); LEUKOCYTE ESTERASE ,URINE Negative (NEGATIVE); NITRITE,URINE Negative (NEGATIVE); PROTEIN,URINE Negative (NEGATIVE); URINE, BLOOD Negative (NEGATIVE); UROBILINOGEN,URINE 0.2 (0.2)
[2019-12-31] MEDS ORDERED: TYLENOL PO PRN (17:24)
[2019-12-31] MEDS ORDERED: HUMULIN R SUBCUT PRN (17:29)
[2019-12-31] MEDS ORDERED: SODIUM CHLORIDE 1,000 ML IV SCH ×2 (17:30→22:23)
[2019-12-31 18:08] VITALS: BMI 28.5
[2019-12-31] MEDS: ATROVENT HFA INHALER (PER PUFF-WITH SPACER) IH SCH (20:02)
[2019-12-31] MEDS: VENTOLIN HFA (PER PUFF-WITH SPACER) IH SCH (20:02)
[2019-12-31] MEDS ORDERED: [UNRECOGNIZED DRUG - OTHER] IH SCH (21:00)
[2019-12-31] MEDS ORDERED: BUDESONIDE FORMOTEROL IH SCH (21:00)
[2019-12-31] MEDS: ZOCOR PO SCH (21:48)
[2019-12-31] MEDS: REQUIP PO SCH (21:48)
[2019-12-31] MEDS: SYMBICORT 160-4.5 MCG INHALER IH SCH (21:48)
[2019-12-31] MEDS: NEURONTIN PO SCH (21:49)
[2019-12-31] MEDS: LEVEMIR SUBCUT SCH (21:53)
[2019-12-31] MEDS: HUMULIN R SUBCUT PRN (22:00)
[2019-12-31] MEDS ORDERED: NORCO 5-325 PO PRN (22:00)
[2020-01-01] MEDS: ATROVENT HFA INHALER (PER PUFF-WITH SPACER) IH SCH ×4 (04:50→19:20)
[2020-01-01] MEDS: VENTOLIN HFA (PER PUFF-WITH SPACER) IH SCH ×4 (04:50→19:20)
[2020-01-01 05:18] LABS: BASOPHILS # (AUTO) 0.1 K/uL (0-0.2); BASOPHILS % (AUTO) 0.9 % (0.0-3.0); EOSINOPHILS # (AUTO) 0.1 K/ul (0.0-0.7); EOSINOPHILS % (AUTO) 1.5 % (0.0-7.0); HEMATOCRIT 30.4 % (37.0-47.0); HEMOGLOBIN 8.8 g/dl (12.0-16.0); IMMATURE GRANULOCYTE # (AUTO) 0.1 (0.0-1.0); IMMATURE GRANULOCYTE % (AUTO) 0.8 % (0.0-5.0); LYMPHOCYTES # (AUTO) 2.5 K/uL (0.60-3.4); LYMPHOCYTES % (AUTO) 31.6 (10.0-50.0); MEAN CORPUSCULAR HEMOGLOBIN 28.1 pg (27.0-31.0); MEAN CORPUSCULAR HGB CONC 28.9 (31.8-35.4); MEAN CORPUSCULAR VOLUME 97.1 fl (81.0-99.0); MONOCYTES # (AUTO) 0.6 K/uL (0.4-2.0); MONOCYTES % (AUTO) 7.8 (0-10); NEUTROPHILS # (AUTO) 4.5 K/ul (2.0-6.9); NEUTROPHILS % (AUTO) 57.4 % (42.2-75.2); PLATELET COUNT 261 10^3/uL (140-440); RDW COEFFICIENT OF VARIATION 17.6 % (11.6-14.8); RED BLOOD COUNT 3.13 10^6/ul (4.20-5.40); WHITE BLOOD COUNT 7.85 K/ul (4.6-10.2)
[2020-01-01 05:26] LABS: ANISOCYTOSIS NOT PRESENT (NOT PRESENT); HYPOCHROMASIA 2+ (NOT PRESENT); MICROCYTOSIS 1+ (NOT PRESENT)
[2020-01-01 05:29] LABS: BLOOD UREA NITROGEN 22.4 mg/dL (7-17); CALCIUM 8.63 mg/dL (8.4-10.2); CHLORIDE 101.7 mmol/L (98-107); CREATININE 0.65 mg/dL (0.60-1.30); POTASSIUM 3.84 mmol/L (3.5-5.1); SODIUM 140.2 mmol/L (134.5-145)
[2020-01-01 05:35] LABS: CARBON DIOXIDE 39.2 mmol/L (22-30.0)
[2020-01-01 05:38] LABS: GLUCOSE 44.9 mg/dL (74-106)
[2020-01-01] MEDS: PROTONIX PO SCH (05:57)
[2020-01-01] MEDS: NEURONTIN PO SCH ×3 (05:57→21:26)
[2020-01-01] MEDS: TRADJENTA PO SCH (08:05)
[2020-01-01] MEDS: LOTENSIN PO SCH (08:05)
[2020-01-01] MEDS: SYMBICORT 160-4.5 MCG INHALER IH SCH ×2 (08:05→21:35)
[2020-01-01] MEDS: PREDNISONE PO SCH (08:05)
[2020-01-01] MEDS: PLAVIX PO SCH (08:06)
[2020-01-01] MEDS: LEVEMIR SUBCUT SCH ×2 (08:49→21:26)
[2020-01-01] MEDS: HUMALOG SUBCUT SCH ×2 (08:49→17:54)
[2020-01-01] MEDS: HUMULIN R SUBCUT PRN ×2 (12:00→17:54)
--- NOTE | 2020-01-01 14:07 | RS.PTINEVL ---
Subjective - Patient information Date of Evaluation: 01/01/20 Date of Arrival on Unit: 12/31/19 Admitted From:: Home Diagnosis: dehydration, muscle weakness, gait difficulty Usual Living Arrangement: Alone Living Arrangement Comments: lives alone has caregiver a few hours a day. Family supportive. Home Environment: House, Stairs (few), Rail, Ramp Medical History: Hypertension, CVA/TIA, COPD, CHF, Arthritis Medical History Comments:: CAD, GERD, [place] LATEX ALLERGY?: No Surgical History: Cholecystectomy, Hysterectomy Medications: see chart Subjective Information/ Patient Comments:: pt states "I should have stayed like the doctor wanted me to." States she was very weak when she went home from the hospital. 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 Pain Assessement - Location hurts all over Description: Aching Pain Behavior: Facial Grimacing Interventions - Objective Patient Orientation: Person, Place, Time, Situation Current Interventions: IV's, Oxygen, Telemetry Observation: pt with 2+ pitting edema BLE Range of Motion - ROM Right Upper Extremity AROM: WFL's Left Upper Extremity AROM: WFL's Right Lower Extremity AROM: WFL's Left Lower Extremity AROM: WFL's Muscle Strength - Muscle Strength Right Upper Extremity Strength: Mild Weakness (grossly 4-/5) Left Upper Extremity Strength: Mild Weakness (grossly 4-/5) Right Lower Extremity Strength: Mild Weakness (hip flex 4-/5, knee flex/ext 4/5, ankle DF/PF 4/5) Left Lower Extremity Strength: Mild Weakness (hip flex 4-/5, knee flex/ext 4/5, ankle DF/PF 4/5) Sensation - Sensation Right Upper Extremity Sensation: Intact/Normal Left Upper Extremity Sensation: Intact/Normal Right Lower Extremity Sensation: Intact/Normal Left Lower Extremity Sensation: Intact/Normal Palpation Palpation Findings: Tenderness Comments:: BLE to palpation Balance - Sitting Balance and Reactions Static Sitting Balance: Good Dynamic Sitting Balance: Fair - Standing Balance and Reactions Static Standing Balance: Fair Dynamic Standing Balance: Poor Standing Equilibrium Reactions: Delayed Left, Delayed Right Standing Protective Reactions: Delayed Left, Delayed Right Functional Mobility - Bed Mobility Rolling R/L: CGA Sit to Supine: CGA - Transfers Sit to Stand: CGA Stand to Sit: CGA - Safety Awareness Safety Awareness: Fair MANNY INDEX SCORE: n/a Ambulation - Ambulation Assistive Device Used: Rolling Walker Orthotic/Prosthetic Device: No Distance: 20ft Assistance needed with Ambulation: CGA Quality of Ambulation: pt amb with O2 at 3 liters, decreased step length, flexed posture Gait Deviations: Forward posture, Short stride Factors Affecting Ambulation: Decreased Balance, Breathing/O2 Saturation, Weakness, Decreased Safety, Limited Endurance Treatment time - Time with patient Length of Evaluation: 21 Total treatment time: 25 Patient Education - Education Patient Education: Activity Modification, Education of Plan of Care Teaching Recipient: Patient Teaching Methods: Discussion Comments: discussion regarding POC Assessment - Assessment Problem List:: Decreased level of function, Requires training/education, Decreased safety/Risk of falls, Weakness Rehab Potential: Good Further Therapy Indicated?: Yes Candidate for Swing Bed for Therapy Services?: unable to say at this point, would reassess at later date. Evaluation Complexity: HISTORY: Medium, EXAM OF BODY SYSTEMS: Medium, CLINICAL PRESENTATION: Medium, CLINICAL DECISION MAKING: Medium Patient's Goal(s): return home as independent as possible Short Term Goals GOAL #1: pt independent with rolling and bridging Goal to be met by: 01/03/20 GOAL #2: Supine to/from Sit with SBA Goal to be met by: 01/03/20 GOAL #3: sit to/from stand SBA Goal to be met by: 01/03/20 GOAL #4: pt amb 100ft w rwx and O2 w CGA x 1 with no seated rest period Goal to be met by: 01/03/20 GOAL #5: . Comments:: 75% met Retirement Goals GOAL #1: Sup to/from sit to/from stand independently Goal to be met by: 01/06/20 GOAL #2: pt amb functional household distances w rwx and O2 I'ly w O2 sat > 85% Goal to be met by: 01/06/20 GOAL #3: Improve LE stength 4 to 4+/5 Goal to be met by: 01/06/20 Plan Plan of Care: Therapeutic EX, Therapeutic Activity Other:: gait training Frequency of Treatment: 1-2 X day, as tolerated Duration of Treatment: 5 days Anticipated Discharge Destination: Home Treatment Diagnosis (ICD 10 Codes): difficulty walking R 26.2. impaired balance R 26.81. weakness M62.81 Has the Physician been added for Co-signature?: Yes
[2020-01-01] MEDS: ZOCOR PO SCH (21:26)
[2020-01-01] MEDS: REQUIP PO SCH (21:26)
[2020-01-02] MEDS: VENTOLIN HFA (PER PUFF-WITH SPACER) IH SCH ×4 (04:55→19:20)
[2020-01-02] MEDS: ATROVENT HFA INHALER (PER PUFF-WITH SPACER) IH SCH ×4 (04:55→19:20)
[2020-01-02 05:26] LABS: BASOPHILS # (AUTO) 0.1 K/uL (0-0.2); EOSINOPHILS # (AUTO) 0.1 K/ul (0.0-0.7); HEMATOCRIT 30.3 % (37.0-47.0); HEMOGLOBIN 8.8 g/dl (12.0-16.0); IMMATURE GRANULOCYTE % (AUTO) 0.5 % (0.0-5.0); LYMPHOCYTES # (AUTO) 1.6 K/uL (0.60-3.4); LYMPHOCYTES % (AUTO) 26.6 (10.0-50.0); MEAN CORPUSCULAR HEMOGLOBIN 28.3 pg (27.0-31.0); MEAN CORPUSCULAR VOLUME 97.4 fl (81.0-99.0); MONOCYTES # (AUTO) 0.5 K/uL (0.4-2.0); MONOCYTES % (AUTO) 8.9 (0-10); NEUTROPHILS # (AUTO) 3.8 K/ul (2.0-6.9); PLATELET COUNT 210 10^3/uL (140-440); RDW COEFFICIENT OF VARIATION 17.4 % (11.6-14.8); RED BLOOD COUNT 3.11 10^6/ul (4.20-5.40); WHITE BLOOD COUNT 6.09 K/ul (4.6-10.2)
[2020-01-02 05:42] LABS: BLOOD UREA NITROGEN 16.9 mg/dL (7-17); CALCIUM 8.76 mg/dL (8.4-10.2); CARBON DIOXIDE 38.3 mmol/L (22-30.0); CREATININE 0.68 mg/dL (0.60-1.30); GLUCOSE 127.4 mg/dL (74-106); POTASSIUM 4.04 mmol/L (3.5-5.1)
[2020-01-02] MEDS: PROTONIX PO SCH (05:44)
[2020-01-02] MEDS: NEURONTIN PO SCH ×3 (05:44→20:11)
[2020-01-02] MEDS: TRADJENTA PO SCH (09:08)
[2020-01-02] MEDS: PLAVIX PO SCH (09:08)
[2020-01-02] MEDS: LOTENSIN PO SCH (09:09)
[2020-01-02] MEDS: PREDNISONE PO SCH (09:09)
[2020-01-02] MEDS: SYMBICORT 160-4.5 MCG INHALER IH SCH ×2 (09:09→20:11)
[2020-01-02] MEDS: LEVEMIR SUBCUT SCH ×2 (09:10→20:12)
--- NOTE | 2020-01-02 11:16 | RS.OTINEVL ---
Subjective - Patient information Date of Evaluation: 01/02/20 Date of Arrival on Unit: 12/31/19 Admitted From:: Emergency Dept Diagnosis: Dehydration, Weakness PRECAUTIONS: Risk for falls Usual Living Arrangement: Alone Living Arrangement Comments: lives alone has caregiver a few hours a day. Family supportive. 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 Pt was living alone. Pt uses a rollator walker independently. Current Level of Function: Partially Dependent Current Equipment Used at Home: oxygen, glucometer, rollator, shower chair, states has all equipment she needs. Pain Assessment - Pain Pain Score: 0 Interventions - Objective Patient Orientation: Person, Place, Time, Situation Current Interventions: IV's, Oxygen Observation: Pt is weak and SOA with activity. Pt is CGA with toileting management. Pt is CGA for functional transfers with rolling walker from EOB to chair. Pt Independent with self feeding. Interventions - ROM Right Upper Extremity AROM: Slight limitation Left Upper Extremity AROM: Slight limitation - Strength Right Upper Extremity Strength: Mild Weakness Left Upper Extremity Strength: Mild Weakness - Sensation Right Upper Extremity Sensation: Intact/Normal Left Upper Extremity Sensation: Intact/Normal Balance - Sitting Balance Static Sitting Balance: Fair Dynamic Sitting Balance: Fair - Standing Balance Static Standing Balance: Poor Dynamic Standing Balance: Poor ADL Skills - Self Feeding Self Feeding: Independent - Grooming Grooming: Min Assist - Bathing Bathing UE: Min Assist Bathing LE: Min Assist - Dressing Dressing UE: CGA Dressing LE: Min Assist - Toilet Management Toileting Management: Independent, CGA Functional Mobility - Bed Mobility Rolling R/L: Independent Scooting: Independent Supine to Sit: CGA Sit to Supine: CGA - Transfers Sit to Stand: CGA Stand to Sit: CGA Stand Pivot Transfers: CGA MANNY INDEX SCORE: . Additional Treatment Performed - Additional units charged ADL: 15 - Time with patient Length of Evaluation: 20 Total treatment time: 35 Activities Do you enjoy playing games?: Yes Would you be interested in leaving your room for activities?: Yes Would you enjoy group activities?: Yes Do you have difficulty with your vision?: Yes Patient Interests:: Reading Books/Magazines, Watching Television, Puzzles/Games, Visiting/Socializing Patient Education Patient Education: Education of diagnosis, Home Exercise Program, Education of Plan of Care Teaching Recipient: Patient Teaching Methods: Discussion Assessment Problem List:: Decreased level of function, Requires training/education, Decreased safety/Risk of falls, Weakness Rehab Potential: Fair Further Therapy Indicated?: Yes Evaluation Complexity: HISTORY: Medium, EXAM OF BODY SYSTEMS: Medium, CLINICAL DECISION MAKING: Medium Patient's Goal(s): To get well and stronger so she can go home. Short Term Goals - Goals GOAL 1: Pt to increase BUE strength to 4+/5. Goal to be met by: 01/08/20 GOAL 2: Pt to be Mod-I with donning BUE shoes. Goal to be met by: 01/08/20 GOAL 3: Pt to tolerate 10 mins of act tolerance to increase safety of ADLs. Goal to be met by: 01/08/20 GOAL 4: Pt to be Supervision for ADLs. Goal to be met by: 01/08/20 Caul Dresser Goals GOAL 1: Pt to be Mod-I with self cares. Goal to be met by: 01/11/20 GOAL 2: Pt to increase BUE strength to 4+/5 to increase safety of ADLs. Goal to be met by: 01/11/20 GOAL 3: Pt to tolerate 15 minutes of theract to increase I of self cares. Goal to be met by: 01/11/20 Plan Plan of Care: Therapeutic EX, Therapeutic Activity, Self-Care/Home Management Frequency of Treatment: 1-2 X day, as tolerated Duration of Treatment: 1 Week Anticipated Discharge Destination: Home Treatment Diagnosis (ICD 10 Codes): Muscle weakness M62.81, Z71.4 Need assistance with personal care. Has the Physician been added for Co-signature?: Yes
[2020-01-02] MEDS: HUMULIN R SUBCUT PRN ×2 (11:49→16:56)
[2020-01-02] MEDS: ZOCOR PO SCH (20:11)
[2020-01-02] MEDS: REQUIP PO SCH (20:11)
[2020-01-02] MEDS: FLORASTOR PO SCH (20:11)
[2020-01-03] MEDS: VENTOLIN HFA (PER PUFF-WITH SPACER) IH SCH ×4 (05:03→19:10)
[2020-01-03] MEDS: ATROVENT HFA INHALER (PER PUFF-WITH SPACER) IH SCH ×4 (05:03→19:10)
[2020-01-03] MEDS: NEURONTIN PO SCH ×3 (05:57→20:24)
[2020-01-03] MEDS: PROTONIX PO SCH (05:57)
[2020-01-03] MEDS: SYMBICORT 160-4.5 MCG INHALER IH SCH ×2 (08:30→20:27)
[2020-01-03] MEDS: LOTENSIN PO SCH (08:30)
[2020-01-03] MEDS: FLORASTOR PO SCH (08:31)
[2020-01-03] MEDS: TRADJENTA PO SCH (08:31)
[2020-01-03] MEDS: PLAVIX PO SCH (08:31)
[2020-01-03] MEDS: PREDNISONE PO SCH (08:31)
[2020-01-03] MEDS: LEVEMIR SUBCUT SCH ×2 (08:31→20:24)
[2020-01-03] MEDS: HUMULIN R SUBCUT PRN ×2 (12:12→17:34)
[2020-01-03] MEDS: REQUIP PO SCH (20:24)
[2020-01-03] MEDS: ZOCOR PO SCH (20:24)
[2020-01-04] MEDS: ATROVENT HFA INHALER (PER PUFF-WITH SPACER) IH SCH ×2 (04:40→10:10)
[2020-01-04] MEDS: VENTOLIN HFA (PER PUFF-WITH SPACER) IH SCH ×2 (04:40→10:10)
[2020-01-04 05:36] VITALS: TEMP 98
[2020-01-04 05:37] VITALS: BP 126/63
[2020-01-04] MEDS: PROTONIX PO SCH (05:50)
[2020-01-04] MEDS: NEURONTIN PO SCH ×2 (05:50→12:04)
[2020-01-04] MEDS: PLAVIX PO SCH (08:58)
[2020-01-04] MEDS: SYMBICORT 160-4.5 MCG INHALER IH SCH (08:58)
[2020-01-04] MEDS: TRADJENTA PO SCH (08:58)
[2020-01-04] MEDS: FLORASTOR PO SCH (08:58)
[2020-01-04] MEDS: PREDNISONE PO SCH (08:58)
[2020-01-04] MEDS: LOTENSIN PO SCH (08:58)
[2020-01-04] MEDS: LEVEMIR SUBCUT SCH (08:59)
[2020-01-04] MEDS: HUMULIN R SUBCUT PRN (11:41)
== END 2020-01-04 13:10 | disposition home health service (06) | DRG 948 ==
LOC: MEDSURG B 14:05 → ED 14:05 → MEDSURG B 17:45 → OBSVTOIN 17:45
PROVIDERS: ADMIT Family Medicine; ATTEND Family Medicine
DX: R19.7 Diarrhea, unspecified; R34 Anuria and oliguria; R60.0 Localized edema; R53.1 Weakness

== ENCOUNTER 2020-06-02 16:48 | Observation (INO) ==
[2020-06-02] MEDS ORDERED: SODIUM CHLORIDE 1,000 ML IV STA (16:49)
[2020-06-02 17:24] LABS: EOSINOPHILS # (AUTO) 0.2 K/ul (0.0-0.7); HEMATOCRIT 30.8 % (37.0-47.0); HEMOGLOBIN 9.4 g/dl (12.0-16.0); IMMATURE GRANULOCYTE # (AUTO) 0.1 (0.0-1.0); IMMATURE GRANULOCYTE % (AUTO) 0.9 % (0.0-5.0); LYMPHOCYTES # (AUTO) 1.4 K/uL (0.60-3.4); LYMPHOCYTES % (AUTO) 15.4 (10.0-50.0); MEAN CORPUSCULAR HEMOGLOBIN 28.3 pg (27.0-31.0); MEAN CORPUSCULAR HGB CONC 30.5 (31.8-35.4); MEAN CORPUSCULAR VOLUME 92.8 fl (81.0-99.0); MONOCYTES # (AUTO) 0.6 K/uL (0.4-2.0); NEUTROPHILS # (AUTO) 6.7 K/ul (2.0-6.9); NEUTROPHILS % (AUTO) 74.7 % (42.2-75.2); PLATELET COUNT 217 10^3/uL (140-440); RDW COEFFICIENT OF VARIATION 15.9 % (11.6-14.8); RED BLOOD COUNT 3.32 10^6/ul (4.20-5.40); WHITE BLOOD COUNT 8.99 K/ul (4.6-10.2)
[2020-06-02 17:37] LABS: ALANINE AMINOTRANSFERASE 31.6 U/L (0-35); ALBUMIN 3.32 g/dL (3.5-5.0); ALKALINE PHOSPHATASE 124.1 U/L (53-141); ASPARTATE AMINO TRANSFERASE 39.2 U/L (14-36); BILIRUBIN,TOTAL 0.35 mg/dL (0.2-1.3); BLOOD UREA NITROGEN 20.6 mg/dL (7-17); CALCIUM 8.43 mg/dL (8.4-10.2); CARBON DIOXIDE 39.3 mmol/L (22-30.0); CHLORIDE 98.7 mmol/L (98-107); CREATININE 0.76 mg/dL (0.60-1.30); GLUCOSE 186.3 mg/dL (74-106); POTASSIUM 3.95 mmol/L (3.5-5.1); SODIUM 140.2 mmol/L (134.5-145); TOTAL PROTEIN 6.15 g/dL (6.3-8.2)
[2020-06-02 17:49] LABS: TROPONIN I < 0.012 ng/ml (0.0000-0.120)
--- NOTE | 2020-06-02 18:19 | CT ---
EXAM: CT head without contrast. HISTORY: Weakness, COVID-19 positive COMPARISON: 06/19/2019. TECHNIQUE: Axial CT imaging of the brain was performed without contrast. Sagittal and coronal re-for mations were obtained. FINDINGS: The waller-white differentiation and sulcal detail are preserved. No acute large vessel dist ribution infarction, intracranial bleed or focal mass. Scattered periventricular and subcortical hypodensities are seen. The cerebral sulci are enlarged. The ventricles are enlarged and midline in position. There is no midline shift or mass effect. The basilar cisterns are patent. No displaced skull fracture. The paranasal sinuses are clear. The mastoid air cells are well aerated. IMPRESSION: Mild atrophy and microvascular white matter changes without acute intracranial process. All CT scans are performed using dose optimization techniques as appropriate to the performed exam an d include at least one of the following: Automated exposure control, adjustment of the mA and/or kV according t o size, and the use of iterative reconstruction technique.
--- NOTE | 2020-06-02 18:22 | DI ---
EXAM: Single view chest COMPARISON: Chest X-ray from 12/31/2019 HISTORY: Weakness. History of COVID-19. FINDINGS: There is decreasing aeration in the right lung base which appears to be mostly on the basi s of pleural fluid. There are some minimal patchy areas of air space density in both lung avitia as well. Cardiac and mediastinal silhouettes show no acute abnormality. No acute soft tissue or osseou s abnormalities. IMPRESSION: 1. Increasing right-sided pleural effusion with increasing bibasilar patchy air space densities cons istent with COVID-19 pneumonia.
[2020-06-02] MEDS ORDERED: TYLENOL PO PRN ×2 (19:04→21:33)
--- NOTE | 2020-06-02 19:21 | ED.PDOC ---
General ED Provider: Dr. LUIS MAURO MD Stated Complaint: generalized weakness Time Seen by Provider: 06/02/20 16:52 Mode of Arrival: Stretcher Information Source: Patient and EMT Exam Limitations: No limitations Primary Care Provider: WINSTON SUN Nursing and Triage Documentation Reviewed and Agree: Yes Does patient meet sepsis criteria?: No System Inflammatory Response Syndrome: Not Applicable Sepsis Protocol: For patient's 13 years and over: Temp is 96.8 and below OR 101 and greater Pulse >90 BPM Resp >20/minute Acutely Altered Mental Status Are patient's symptoms suggestive of a new infection, such as: -Pneumonia -Skin, Soft Tissue -Endocarditis -UTI -Bone, Joint Infection -Implantable Device -Acute Abdominal Infection -Wound Infection -Meningitis -Blood Stream Catheter Infection -Unknown Respiratory Complaint Exam Shortness of Air Complaint/Exam Onset/Duration: worse generalized weakness x today. Timing: Constant Initial Severity: Moderate Current Severity: Moderate Character: Reports Dyspnea at rest Aggravating: Reports Movement Alleviating: Reports None Associated Signs and Symptoms: Reports Wheezing; Denies Cough, Chest pain with cough, Chest pain, Fever, Chills, Diaphoresis, Nasal congestion, Dizziness, Calf pain, Calf swelling, Edema, Rapid breathing, Labored breathing and Decreased intake History of Healthcare-Acquired Pneumonia: Admit w/in last 30 days (Pt was txed in [facility] for Cov[facility] pneumonia.) Home Oxygen Use: No Recent Stress Test: No Recent Echo/LV Function: No Respiratory Distress: Mild Stridor Present: No Tracheal Deviation: No Subcutaneous Emphysema: No Accessory Muscle Use: No Retractions: Not Present Unable to Speak Full Sentences: Yes Fatigue: Yes Velvet's Sign Present: No Kussmaul Respirations: No Differential Diagnoses: Pulmonary Edema, COPD Exacerbation, Pneumonia, SARS, Bronchitis and URI Review of Systems Review Of Systems Constitutional: Reports Weakness Eyes: Reports No symptoms Ears, Nose, Mouth, Throat: Reports No symptoms Respiratory: Reports Short of air Cardiac: Reports No symptoms GI: Reports No symptoms : Reports No symptoms Musculoskeletal: Reports No symptoms Skin: Reports No symptoms Neurological: Reports No symptoms Endocrine: Reports No symptoms Hematologic/Lymphatic: Reports No symptoms All Other Systems: Reviewed and Negative [facility] Medical History (Updated 06/02/20 @ 19:25 by LUIS MAURO MD) Anemia Asthma Cataracts, bilateral CHF (congestive heart failure) Chronic headaches COPD (chronic obstructive pulmonary disease) Coronary artery disease CVA (cerebral vascular accident) Diabetes Diverticulosis Gall stones GERD (gastroesophageal reflux disease) Heart attack Hiatal hernia History of prior pregnancies Ovarian cyst Palpitations Pneumonia Renal disease Rheumatoid arthritis Sleep apnea TIA (transient ischemic attack) Ulcer Family History Mother Cardiac disorder FATHER Cardiac disorder FATHER Thyroid disease Mother Thyroid disease Social History History of recent travel: No Surgical History H/O eye surgery H/O: hysterectomy Female Reproductive History Menstrual Hx Hysterectomy: Yes Hx Tubal Ligation: No Physical Exam Physical Exam Appearance: Reports No pain distress Ill-appearing: Mild Pain Distress: None Eyes: Reports ALFRED and EOMI ENT: Reports Ears normal and Oropharynx normal Neck: Supple Respiratory: Reports Airway patent, Breath sounds equal and Rhonchi Cardiovascular: Reports RRR GI/: Reports Soft, Nontender, No masses and No Organomegaly Musculoskeletal: Reports Normal strength, ROM intact and No edema Skin: Reports Warm, Dry and Normal color Neurological: Reports Sensation intact, Motor intact, Reflexes intact, Alert and Oriented Psychiatric: Reports Affect appropriate and Mood appropriate Interpretation Radiology Interpretation Radiology Interpretation By: Radiologist Radiology Results: Positive Re-Evaluation Re-Evaluation Time of Re-Evaluation: 17:45 Status: Improved Vital Signs Stable: Yes Pain Level: 0 Lungs: Other (mild rhonchi and wheezes.) Skin: Warm and Dry CV: RRR Critical Care Note Critical Care Note Total Critical Care Time (mins): 0 Course Course Hematology/Chemistry: 06/02/20 17:20 06/02/20 17:20 Orders, Labs, Meds: Lab Review 06/02/20 06/02/20 17:20 17:20 WBC 8.99 RBC 3.32 L Hgb 9.4 L Hct 30.8 L MCV 92.8 MCH 28.3 MCHC 30.5 L RDW Coeff of Chuy 15.9 H Plt Count 217 Immature Gran % (Auto) 0.9 Neut % (Auto) 74.7 Lymph % (Auto) 15.4 [place] % (Auto) 7.0 Eos % (Auto) 2.0 Baso % (Auto) 0.0 Neut # (Auto) 6.7 Lymph # (Auto) 1.4 [place] # (Auto) 0.6 Eos # (Auto) 0.2 Baso # (Auto) 0.0 Immature Gran # (Auto) 0.1 Sodium 140.2 Potassium 3.95 Chloride 98.7 Carbon Dioxide 39.3 H Anion Gap 6.15 BUN 20.6 H Creatinine 0.76 Estimated GFR (MDRD) 73.00 BUN/Creatinine Ratio 27.10 Glucose 186.3 H Calcium 8.43 Total Bilirubin 0.35 AST 39.2 H ALT 31.6 Alkaline Phosphatase 124.1 Troponin I < 0.012 Total Protein 6.15 L Albumin 3.32 L Globulin 2.83 Albumin/Globulin Ratio 1.17 Orders Category Date Time Status ADMIT PATIENT INPATIENT .TO MEDSURG (MONITORED BED) ADMISSION 06/02/20 18:09 Active EKG-(ED ONLY) Stat CARDIO 06/02/20 16:49 Completed TELEMETRY MONITORING TELE CARE 06/02/20 18:11 Active ED IV/MEDIPORT/POWERPORT .ONCE EMERGENCY 06/02/20 16:49 Active CBC W/ AUTO DIFF Stat LAB 06/02/20 17:20 Completed COMPREHENSIVE METABOLIC PANEL Stat LAB 06/02/20 17:20 Completed TROPONIN I Stat LAB 06/02/20 17:20 Completed URINALYSIS C & S IF INDICATED Stat LAB 06/02/20 16:49 Uncollected 0.9 % Sodium Chloride [Saline Flush] MEDS 06/02/20 16:49 Active 1 syr IVF PRN PRN Sodium Chloride 0.9% [Sodium Chloride] 1,000 ml MEDS 06/02/20 16:49 Active IV 125 mls/hr CHEST, 1V AP ONLY Stat RADS 06/02/20 16:[address] HEAD W/O CONTRAST Stat RADS 06/02/20 16:49 Completed Medications Generic Name Dose Route Start Last Admin Trade Name Freq PRN Reason Stop Dose Admin Acetaminophen 650 mg 06/02/20 19:04 Acetaminophen 325 Mg Tablet PO Q8H PRN Mild/Moderate Pain Albuterol Sulfate 2 puff 06/02/20 20:00 Albuterol Sulfate (Ventolin Hfa) 18 Gm 1 Puff With Spacer IH RTQID HAROON Sodium Chloride 1,000 mls @ 125 mls/hr 06/02/20 16:49 Sodium Chloride IV 06/03/20 00:48 .Q8H STA Sodium Chloride 1,000 mls @ 75 mls/hr 06/02/20 19:30 Sodium Chloride IV .[id number] HAROON CEFTRIAXONE/D5W 1 GM PREMIX 1 gm in 50 mls @ 75 mls/hr 06/02/20 19:30 Rocephin 1 Gm/50 Ml D5w IV 06/05/20 19:29 DAILY HAROON Azithromycin 500 mg/ Sodium 250 mls @ 125 mls/hr 06/02/20 19:30 Chloride IV 06/04/20 10:59 DAILY HAROON Ipratropium [place] 2 puff 06/02/20 20:00 Ipratropium [place] 12.9 Gm Hfa Inhaler Per Puff With Spacer IH RTQID HAROON Sodium Chloride 1 syr 06/02/20 16:49 0.9% Sodium Chloride 10 Ml Disp.Syrin IVF PRN PRN To flush IV Vital Signs: Temp Pulse Resp BP Pulse Ox 06/02/20 16:50 96.2 F L 81 24 143/61 H 100 Discharge Plan Discharge Patient Disposition: ADMITTED INPATIENT Discharge Problem: Pneumonia, Muscle weakness ED Provider: LUIS MAURO Condition: Poor Physician Progress Note: []Pt was d/w Dr Sun and will be admitted to [facility]: see orders.
[2020-06-02] MEDS ORDERED: ROCEPHIN 1 GM/50 ML D5W 1 GM/50 ML BAG IV SCH (19:30)
[2020-06-02] MEDS ORDERED: ZITHROMAX 500 MG in SODIUM CHLORIDE 250 ML IV SCH (19:30)
[2020-06-02] MEDS ORDERED: SODIUM CHLORIDE 1,000 ML IV SCH (19:30)
[2020-06-02] MEDS: VENTOLIN HFA (PER PUFF-WITH SPACER) IH SCH (21:00)
[2020-06-02] MEDS: ATROVENT HFA INHALER (PER PUFF-WITH SPACER) IH SCH (21:00)
[2020-06-02] MEDS ORDERED: HUMALOG SUBCUT SCH (21:45)
[2020-06-02 22:02] VITALS: BMI 25.7
[2020-06-02] MEDS: ZOCOR PO SCH (22:19)
[2020-06-02] MEDS: REQUIP PO SCH (22:19)
[2020-06-02] MEDS: NEURONTIN PO SCH (22:19)
[2020-06-02] MEDS: SODIUM CHLORIDE 1,000 ML IV SCH (22:20)
[2020-06-03] MEDS: ATROVENT HFA INHALER (PER PUFF-WITH SPACER) IH SCH ×4 (05:10→20:00)
[2020-06-03] MEDS: VENTOLIN HFA (PER PUFF-WITH SPACER) IH SCH ×4 (05:10→20:00)
[2020-06-03] MEDS: NEURONTIN PO SCH ×3 (05:25→21:19)
[2020-06-03 05:57] LABS: BASOPHILS % (AUTO) 0.2 % (0.0-3.0); EOSINOPHILS # (AUTO) 0.2 K/ul (0.0-0.7); EOSINOPHILS % (AUTO) 2.6 % (0.0-7.0); HEMATOCRIT 27.5 % (37.0-47.0); HEMOGLOBIN 8.2 g/dl (12.0-16.0); IMMATURE GRANULOCYTE # (AUTO) 0.1 (0.0-1.0); IMMATURE GRANULOCYTE % (AUTO) 0.7 % (0.0-5.0); LYMPHOCYTES # (AUTO) 1.5 K/uL (0.60-3.4); LYMPHOCYTES % (AUTO) 17.1 (10.0-50.0); MEAN CORPUSCULAR HEMOGLOBIN 27.7 pg (27.0-31.0); MEAN CORPUSCULAR HGB CONC 29.8 (31.8-35.4); MEAN CORPUSCULAR VOLUME 92.9 fl (81.0-99.0); MONOCYTES # (AUTO) 0.7 K/uL (0.4-2.0); NEUTROPHILS # (AUTO) 6.2 K/ul (2.0-6.9); NEUTROPHILS % (AUTO) 71.4 % (42.2-75.2); PLATELET COUNT 191 10^3/uL (140-440); RDW COEFFICIENT OF VARIATION 15.7 % (11.6-14.8); RED BLOOD COUNT 2.96 10^6/ul (4.20-5.40)
[2020-06-03 06:08] LABS: ALBUMIN 2.84 g/dL (3.5-5.0); ALKALINE PHOSPHATASE 101.8 U/L (53-141); ASPARTATE AMINO TRANSFERASE 27.6 U/L (14-36); BILIRUBIN,TOTAL 0.35 mg/dL (0.2-1.3); BLOOD UREA NITROGEN 18.4 mg/dL (7-17); CALCIUM 8.31 mg/dL (8.4-10.2); CHLORIDE 100.2 mmol/L (98-107); CREATININE 0.62 mg/dL (0.60-1.30); POTASSIUM 3.93 mmol/L (3.5-5.1); SODIUM 139.3 mmol/L (134.5-145); TOTAL PROTEIN 5.48 g/dL (6.3-8.2)
[2020-06-03 06:14] LABS: CARBON DIOXIDE 38.6 mmol/L (22-30.0)
[2020-06-03] MEDS: PROTONIX PO SCH (07:43)
[2020-06-03] MEDS: CARAFATE PO SCH ×2 (07:43→17:51)
[2020-06-03] MEDS: MIRALAX PO SCH (08:59)
[2020-06-03] MEDS: PREVALITE PO SCH ×2 (08:59→20:21)
[2020-06-03] MEDS: VITAMIN D PO SCH (09:00)
[2020-06-03] MEDS: SYMBICORT 160-4.5 MCG INHALER IH SCH ×2 (09:00→20:29)
[2020-06-03] MEDS: VITAMIN C PO SCH (09:00)
[2020-06-03] MEDS: COLACE PO SCH (09:00)
[2020-06-03] MEDS: FERROUS SULFATE PO SCH (09:00)
[2020-06-03] MEDS ORDERED: CHOLESTYRAMINE PO SCH (09:00)
[2020-06-03] MEDS: TRADJENTA PO SCH (09:00)
[2020-06-03] MEDS ORDERED: [UNRECOGNIZED DRUG - OTHER] PO SCH (09:00)
[2020-06-03] MEDS: LEVEMIR SUBCUT SCH (09:01)
[2020-06-03] MEDS: NON-FORMULARY MEDICATION (Zinc Gluconate 50 mg tablet) PO SCH (09:02)
[2020-06-03] MEDS: HUMALOG SUBCUT SCH ×2 (10:06→11:33)
[2020-06-03] MEDS: ROCEPHIN 1 GM/50 ML D5W 1 GM/50 ML BAG IV SCH (12:44)
[2020-06-03] MEDS: LIDODERM PATCH 5% TP SCH (16:06)
[2020-06-03] MEDS ORDERED: HUMALOG SUBCUT SCH (17:00)
[2020-06-03] MEDS ORDERED: HUMULIN R SUBCUT PRN (18:00)
[2020-06-03 20:10] LABS: BILIRUBIN,URINE Negative (NEGATIVE); CLARITY,URINE Clear (CLEAR); COLOR,URINE Yellow (YELLOW); GLUCOSE, URINE (UA) Trace (NEGATIVE); KETONES,URINE Negative (NEGATIVE); LEUKOCYTE ESTERASE ,URINE Negative (NEGATIVE); NITRITE,URINE Negative (NEGATIVE); PROTEIN,URINE Negative (NEGATIVE); URINE, BLOOD Negative (NEGATIVE); UROBILINOGEN,URINE 0.2 (0.2)
[2020-06-03] MEDS: REQUIP PO SCH (20:22)
[2020-06-03] MEDS: ZOCOR PO SCH (20:22)
[2020-06-03] MEDS ORDERED: ZITHROMAX 500 MG in SODIUM CHLORIDE 250 ML IV SCH (21:00)
[2020-06-04] MEDS: ATROVENT HFA INHALER (PER PUFF-WITH SPACER) IH SCH (05:10)
[2020-06-04] MEDS: VENTOLIN HFA (PER PUFF-WITH SPACER) IH SCH ×2 (05:10→10:18)
[2020-06-04] MEDS: CARAFATE PO SCH (05:32)
[2020-06-04] MEDS: NEURONTIN PO SCH (05:33)
[2020-06-04] MEDS: PROTONIX PO SCH (05:33)
[2020-06-04 05:42] LABS: BASOPHILS % (AUTO) 0.1 % (0.0-3.0); EOSINOPHILS # (AUTO) 0.2 K/ul (0.0-0.7); HEMATOCRIT 25.8 % (37.0-47.0); HEMOGLOBIN 7.9 g/dl (12.0-16.0); IMMATURE GRANULOCYTE % (AUTO) 0.3 % (0.0-5.0); LYMPHOCYTES # (AUTO) 1.5 K/uL (0.60-3.4); LYMPHOCYTES % (AUTO) 19.4 (10.0-50.0); MEAN CORPUSCULAR HEMOGLOBIN 28.1 pg (27.0-31.0); MEAN CORPUSCULAR HGB CONC 30.6 (31.8-35.4); MEAN CORPUSCULAR VOLUME 91.8 fl (81.0-99.0); MONOCYTES # (AUTO) 0.7 K/uL (0.4-2.0); NEUTROPHILS # (AUTO) 5.2 K/ul (2.0-6.9); NEUTROPHILS % (AUTO) 69.2 % (42.2-75.2); PLATELET COUNT 180 10^3/uL (140-440); RDW COEFFICIENT OF VARIATION 15.8 % (11.6-14.8); RED BLOOD COUNT 2.81 10^6/ul (4.20-5.40); WHITE BLOOD COUNT 7.47 K/ul (4.6-10.2)
[2020-06-04 05:53] LABS: BLOOD UREA NITROGEN 16.8 mg/dL (7-17); CALCIUM 8.27 mg/dL (8.4-10.2); CARBON DIOXIDE 37.9 mmol/L (22-30.0); CREATININE 0.58 mg/dL (0.60-1.30); GLUCOSE 101.6 mg/dL (74-106); POTASSIUM 4.09 mmol/L (3.5-5.1); SODIUM 137.9 mmol/L (134.5-145)
[2020-06-04 08:00] LABS: C-REACTIVE PROTEIN 3 mg/L (0-10)
[2020-06-04] MEDS: SYMBICORT 160-4.5 MCG INHALER IH SCH (08:34)
[2020-06-04] MEDS: MIRALAX PO SCH (08:36)
[2020-06-04] MEDS: VITAMIN D PO SCH (08:37)
[2020-06-04] MEDS: VITAMIN C PO SCH (08:37)
[2020-06-04] MEDS: TRADJENTA PO SCH (08:37)
[2020-06-04] MEDS: PREVALITE PO SCH (08:37)
[2020-06-04] MEDS: FERROUS SULFATE PO SCH (08:37)
[2020-06-04] MEDS: COLACE PO SCH (08:37)
[2020-06-04] MEDS: LEVEMIR SUBCUT SCH (08:42)
[2020-06-04] MEDS: LIDODERM PATCH 5% TP SCH (08:44)
[2020-06-04] MEDS: HUMALOG SUBCUT SCH ×2 (08:45→11:30)
[2020-06-04] MEDS: NON-FORMULARY MEDICATION (Zinc Gluconate 50 mg tablet) PO SCH (08:46)
[2020-06-04] MEDS ORDERED: DECADRON IM SCH (09:00)
[2020-06-04] MEDS: SODIUM CHLORIDE 1,000 ML IV SCH (09:01)
[2020-06-04] MEDS ORDERED: ATROVENT HFA INHALER (PER PUFF-WITH SPACER) IH SCH (10:00)
[2020-06-04] MEDS ORDERED: LIDOCAINE HCL 1% SDV IM STA (10:37)
[2020-06-04] MEDS ORDERED: ROCEPHIN 1 GM VIAL IM STA (10:37)
[2020-06-04 11:06] VITALS: BP 180/83; TEMP 98.2
[2020-06-04] MEDS: ROCEPHIN 1 GM/50 ML D5W 1 GM/50 ML BAG IV SCH (11:16)
[2020-06-04] MEDS ORDERED: NEURONTIN PO SCH (13:00)
[2020-06-04] MEDS ORDERED: ZITHROMAX PO SCH (21:00)
[2020-07-04 20:20] LABS: FUNGAL CULTURE Final report (.)
== END 2020-06-04 13:10 | disposition swing bed (61) ==
LOC: ED 16:48 → SCU 18:29 → INTOOBSV 18:29 → SCU 19:38
PROVIDERS: ADMIT Family Medicine; ATTEND Family Medicine
DX: R06.02 Shortness of breath; Z91.138 Patient's unintentional underdosing of medication regimen for other reason; R06.2 Wheezing; R53.1 Weakness; R26.9 Unspecified abnormalities of gait and mobility

== ENCOUNTER 2020-08-26 15:04 | Inpatient (IN) ==
[2020-08-26 15:59] VITALS: BMI 27.2
[2020-08-26] MEDS ORDERED: LASIX IVP ONE (17:15)
[2020-08-26] MEDS ORDERED: GLUTOSE 15 PO PRN (19:42)
[2020-08-26] MEDS ORDERED: PREPARATION H OINTMENT RC PRN (19:42)
[2020-08-26] MEDS ORDERED: TYLENOL PO PRN (19:42)
[2020-08-26] MEDS ORDERED: HUMALOG SUBCUT SCH (19:45)
[2020-08-26] MEDS: LEVEMIR SUBCUT SCH (20:46)
[2020-08-26] MEDS: ZOCOR PO SCH (20:47)
[2020-08-26] MEDS: REQUIP PO SCH (20:47)
[2020-08-26] MEDS: SYMBICORT 160-4.5 MCG INHALER IH SCH (20:47)
[2020-08-26] MEDS: PROZAC PO SCH (20:48)
[2020-08-26] MEDS: CEFTIN PO SCH (20:48)
[2020-08-26] MEDS: NEURONTIN PO SCH (20:48)
[2020-08-26] MEDS ORDERED: [UNRECOGNIZED DRUG - OTHER] PO SCH (21:00)
[2020-08-26] MEDS ORDERED: SOLU-MEDROL 40 MG IVP ONE (21:00)
[2020-08-26] MEDS ORDERED: CHOLESTYRAMINE PO SCH (21:00)
[2020-08-26] MEDS: DUONEB NEB SCH (21:32)
[2020-08-27] MEDS: NEURONTIN PO SCH ×3 (04:26→20:30)
[2020-08-27] MEDS: DUONEB NEB SCH ×4 (05:13→19:53)
[2020-08-27 05:49] LABS: BASOPHILS % (AUTO) 0.5 % (0.0-3.0); EOSINOPHILS % (AUTO) 0.2 % (0.0-7.0); HEMOGLOBIN 9.4 g/dl (12.0-16.0); IMMATURE GRANULOCYTE # (AUTO) 0.1 (0.0-1.0); IMMATURE GRANULOCYTE % (AUTO) 1.2 % (0.0-5.0); LYMPHOCYTES # (AUTO) 1.1 K/uL (0.60-3.4); LYMPHOCYTES % (AUTO) 24.5 (10.0-50.0); MEAN CORPUSCULAR HEMOGLOBIN 27.7 pg (27.0-31.0); MEAN CORPUSCULAR HGB CONC 30.3 (31.8-35.4); MEAN CORPUSCULAR VOLUME 91.4 fl (81.0-99.0); MONOCYTES # (AUTO) 0.3 K/uL (0.4-2.0); MONOCYTES % (AUTO) 6.5 (0-10); NEUTROPHILS # (AUTO) 2.9 K/ul (2.0-6.9); NEUTROPHILS % (AUTO) 67.1 % (42.2-75.2); PLATELET COUNT 118 10^3/uL (140-440); RDW COEFFICIENT OF VARIATION 15.6 % (11.6-14.8); RED BLOOD COUNT 3.39 10^6/ul (4.20-5.40); WHITE BLOOD COUNT 4.28 K/ul (4.6-10.2)
[2020-08-27 06:03] LABS: BLOOD UREA NITROGEN 42.1 mg/dL (7-17); CALCIUM 8.67 mg/dL (8.4-10.2); CHLORIDE 92.8 mmol/L (98-107); CREATININE 0.58 mg/dL (0.60-1.30); GLUCOSE 328.5 mg/dL (74-106); POTASSIUM 4.85 mmol/L (3.5-5.1); SODIUM 135.1 mmol/L (134.5-145)
[2020-08-27] MEDS: PROTONIX PO SCH (06:10)
[2020-08-27 07:50] LABS: BORDETELLA PARAPERTUSSIS (PCR) NOT DETECTED (NOT DETECT); BORDETELLA PERTUSSIS (PCR) NOT DETECTED (NOT DETECT); CHLAMYDIA PNEUMONIAE (PCR) NOT DETECTED (NOT DETECT); CORONAVIRUS 229E (PCR) NOT DETECTED (NOT DETECT); CORONAVIRUS HKU1 (PCR) NOT DETECTED (NOT DETECT); CORONAVIRUS NL63 (PCR) NOT DETECTED (NOT DETECT); CORONAVIRUS OC43 (PCR) NOT DETECTED (NOT DETECT); HUMAN METAPNEUMOVIRUS (PCR) NOT DETECTED (NOT DETECT); HUMAN RHINOVIRUS/ENTEROV (PCR) NOT DETECTED (NOT DETECT); INFLUENZA B (PCR) NOT DETECTED (NOT DETECT); MYCOPLASMA PNEUMONIAE (PCR) NOT DETECTED (NOT DETECT); PARAINFLUENZA VIRUS 1 (PCR) NOT DETECTED (NOT DETECT); PARAINFLUENZA VIRUS 2 (PCR) NOT DETECTED (NOT DETECT); PARAINFLUENZA VIRUS 3 (PCR) NOT DETECTED (NOT DETECT); PARAINFLUENZA VIRUS 4 (PCR) NOT DETECTED (NOT DETECT); RESPIRATORY SYNCYTIAL V (PCR) NOT DETECTED (NOT DETECT); SARS_COV_2 (PCR) NOT DETECTED (NOT DETECT)
[2020-08-27 08:38] LABS: ADENOVIRUS (PCR) NOT DETECTED (NOT DETECT)
[2020-08-27] MEDS: MIRALAX PO SCH ×2 (08:45→08:49)
[2020-08-27] MEDS: COLACE PO SCH (08:46)
[2020-08-27] MEDS: PROZAC PO SCH ×2 (08:46→20:30)
[2020-08-27] MEDS: VITAMIN D PO SCH (08:46)
[2020-08-27] MEDS: CEFTIN PO SCH ×2 (08:46→20:31)
[2020-08-27] MEDS: FERROUS SULFATE PO SCH (08:46)
[2020-08-27] MEDS: TRADJENTA PO SCH (08:46)
[2020-08-27] MEDS: SYMBICORT 160-4.5 MCG INHALER IH SCH ×2 (08:47→20:31)
[2020-08-27] MEDS ORDERED: MICRO-K CAP PO SCH (09:00)
[2020-08-27] MEDS ORDERED: PREDNISONE PO SCH (09:00)
[2020-08-27] MEDS ORDERED: LIDODERM PATCH 5% TP SCH (09:00)
[2020-08-27] MEDS: HUMALOG SUBCUT SCH ×2 (10:22→12:39)
--- NOTE | 2020-08-27 11:41 | RS.PTINEVL ---
Subjective - Patient information Date of Evaluation: 08/27/20 Date of Arrival on Unit: 08/26/20 Admitted From:: Home Diagnosis: CHF, COPD, impaired balance Usual Living Arrangement: Alone Living Arrangement Comments: pt lives at home and son or caregivers stay with her. Home Environment: House, Ramp Medical History: Hypertension, CVA/TIA, COPD, Diabetes, CHF, Arthritis (OA and RA) Medical History Comments:: hiatal hernia, [place], GERD LATEX ALLERGY?: No Medications: see chart Subjective Information/ Patient Comments:: pt states that she walks with assistance at home. She reports that she uses rwx. She has assist with ADL's - Level of function Prior to this admission, the patient could do the following:: Partially Dependent Ambulation Current Level of Function: Partially Dependent Current Equipment Used at Home: triology sleep apnea machine. rolling walker. wheelchair. glucometer. handrails Interventions - Objective Patient Orientation: Person, Place, Time, Situation Current Interventions: IV's, Oxygen, Telemetry Observation: pt wearing R knee neopreen brace. She states her knee "gives way". pt with non pitting edema BLE Range of Motion - ROM Right Upper Extremity AROM: Slight limitation Left Upper Extremity AROM: Slight limitation Right Lower Extremity AROM: WFL's Left Lower Extremity AROM: WFL's (pt with decreased shld flex due to OA) Muscle Strength - Muscle Strength Right Upper Extremity Strength: Mild Weakness (grossly 4/5) Left Upper Extremity Strength: Mild Weakness (grossly 4/5) Right Lower Extremity Strength: Mild Weakness (hip flex 3+/5, knee flex4/5, ext 4-/5, ankle 4/5) Left Lower Extremity Strength: Mild Weakness (hip flex 4-/5, knee flex/ext 4/5, ankle 4/5) Sensation - Sensation Right Upper Extremity Sensation: Intact/Normal Left Upper Extremity Sensation: Intact/Normal Right Lower Extremity Sensation: Impaired Left Lower Extremity Sensation: Impaired Comments: n/t occasionally B feet Palpation Palpation Findings: None/Normal Balance - Sitting Balance and Reactions Static Sitting Balance: Good Dynamic Sitting Balance: Fair - Standing Balance and Reactions Static Standing Balance: Poor Dynamic Standing Balance: Poor Standing Equilibrium Reactions: Delayed Left, Delayed Right Standing Protective Reactions: Delayed Left, Delayed Right Functional Mobility - Bed Mobility Comments:: pt sitting up in recliner - Transfers Sit to Stand: Min Assist Stand to Sit: Min Assist - Safety Awareness Safety Awareness: Fair MANNY INDEX SCORE: n/a Ambulation - Ambulation Assistive Device Used: Rolling Walker Orthotic/Prosthetic Device: No Distance: 80ft Assistance needed with Ambulation: CGA, 1 person assist, 2 person assist Quality of Ambulation: pt amb CGA 1 +1 for O2 Gait Deviations: Forward posture, Short stride Ambulation Comments: pt amb with decreased step length Factors Affecting Ambulation: Decreased Balance, Breathing/O2 Saturation, Weakness, Decreased Safety, Limited Endurance Treatment time - Time with patient Length of Evaluation: 21 Total treatment time: 24 Patient Education - Education Patient Education: Activity Modification, Education of Plan of Care Teaching Recipient: Patient Teaching Methods: Discussion, Demonstration Comments: discussion regarding POC Assessment - Assessment Problem List:: Decreased level of function, Requires training/education, Decreased safety/Risk of falls, Weakness, Pain limits previous level of function Rehab Potential: Fair Further Therapy Indicated?: Yes Evaluation Complexity: HISTORY: Medium, EXAM OF BODY SYSTEMS: Medium, CLINICAL PRESENTATION: Medium, CLINICAL DECISION MAKING: Medium Patient's Goal(s): get as strong as possible and go home Short Term Goals GOAL #1: pt independent with bed mobility. Goal to be met by: 08/29/20 GOAL #2: Supine to/from sit with CGA Goal to be met by: 08/29/20 GOAL #3: Sit to /from stand with SBA Goal to be met by: 08/29/20 GOAL #4: pt amb 100ft with rwx and O2 with improved posture, step length Goal to be met by: 08/29/20 GOAL #5: Improve BLE strength 4/5 Goal to be met by: 08/29/20 Assisted Goals GOAL #1: pt transfer sup to/from sit to/from stand SBA Goal to be met by: 09/01/20 GOAL #2: Pt amb short household distances with O2 and RW SBA Goal to be met by: 09/01/20 GOAL #3: Improve dyn stand balance fair Goal to be met by: 09/01/20 Plan Plan of Care: Therapeutic EX, Therapeutic Activity Frequency of Treatment: 1-2 X day, as tolerated Duration of Treatment: 5 days Anticipated Discharge Destination: Home Treatment Diagnosis (ICD 10 Codes): impaired balance R26.81. muscle weakness M62.81. gait difficulty R 26.2 Has the Physician been added for Co-signature?: Yes
--- NOTE | 2020-08-27 14:49 | RS.OTINEVL ---
Subjective - Patient information Date of Evaluation: 07/05/20 Date of Arrival on Unit: 08/26/20 Admitted From:: Home Diagnosis: Decreased ADL, Impaired mobility, Decreased safety PRECAUTIONS: SOA with activity Usual Living Arrangement: Alone Living Arrangement Comments: pt lives at home and caregivers stay with her. Home Environment: House, Ramp Medical History: Hypertension, CVA/TIA, COPD, Diabetes, CHF, Arthritis (OA and RA) Medical History Comments:: hiatal hernia, MA, GERD LATEX ALLERGY?: No Surgical History: Cholecystectomy, Hysterectomy Surgical History Comments:: hysterectomy, gallstones, cataract, ovarian cyst, Medications: see chart Subjective Information/ Patient Comments:: "He said I will be here 2-3 days. Then I guess I will go home." - Level of function Prior to this admission, the patient could do the following:: Partially Dependent Ambulation Abilities prior to this admission: Pt has a CG helping her with her ADLS. Pt had help with her meals, baths, dressing, and errands. Current Level of Function: Partially Dependent Comments: Pt gets SOA with activity. Current Equipment Used at Home: [employer] sleep apnea machine. rolling walker. wheelchair. glucometer. handrails Pain Assessment - Pain Pain Score: 0 Interventions - Objective Patient Orientation: Person, Place, Time, Situation Current Interventions: IV's, Oxygen, Telemetry Observation: Pt is Minimal assist to stand from Edge of chair to EOB. Pt then transferred back to the chair. Interventions - ROM Right Upper Extremity AROM: WFL's Left Upper Extremity AROM: WFL's - Strength Right Upper Extremity Strength: Mild Weakness Left Upper Extremity Strength: Mild Weakness Balance - Sitting Balance Static Sitting Balance: Good Dynamic Sitting Balance: Good - Standing Balance Static Standing Balance: Fair Dynamic Standing Balance: Fair ADL Skills - Self Feeding Self Feeding: Independent - Grooming Grooming: CGA - Bathing Bathing UE: CGA Bathing LE: CGA - Dressing Dressing UE: Independent Dressing LE: CGA - Toilet Management Toileting Management: Independent Functional Mobility - Transfers Sit to Stand: Min Assist Stand to Sit: Min Assist - Ambulation Weight Bearing Status: FWB Assistive Device Used: Rolling Walker Assistance needed with Ambulation: Min Assist - Safety Awareness Safety Awareness: Good MANNY INDEX SCORE: . Additional Treatment Performed - Time with patient Length of Evaluation: 19 Total treatment time: 19 Activities Do you enjoy playing games?: Yes Would you be interested in leaving your room for activities?: Yes Would you enjoy group activities?: Yes Do you have difficulty with your vision?: Yes Patient Interests:: Reading Books/Magazines, Watching Television, Puzzles/Games, Visiting/Socializing Patient Education Patient Education: Education of diagnosis, Activity Modification, Education of Plan of Care Teaching Recipient: Patient Teaching Methods: Teach Back Method Used, Discussion Assessment Problem List:: Decreased level of function, Requires training/education, Decreased safety/Risk of falls, Weakness Rehab Potential: Good Further Therapy Indicated?: Yes Evaluation Complexity: HISTORY: Low, EXAM OF BODY SYSTEMS: Low, CLINICAL DECISION MAKING: Low Patient's Goal(s): To get stronger and go home. Short Term Goals - Goals GOAL 1: Pt to increase strength of BUE to 4+/5 Goal to be met by: 09/02/20 GOAL 2: Pt to be CGA with making herself something to eat. Goal to be met by: 09/02/20 GOAL 3: 10 mins of act tolerance to increase safety of ADL's Goal to be met by: 09/02/20 GOAL 4: Pt to be Supervision for ADLs. Goal to be met by: 09/02/20 GOAL 5: Pt to increase dyn. std. balance to Fair-. Goal to be met by: 07/10/20 Technical Service Engineer Goals GOAL 1: Pt to increase BUE strength to 5/5. Goal to be met by: 09/02/20 GOAL 2: Pt to be Mod-I with making herself something to eat. Goal to be met by: 09/02/20 GOAL 3: Increase activity tolerance to 15 minutes to increase self care. Goal to be met by: 09/02/20 Plan Plan of Care: Therapeutic EX, Therapeutic Activity, Self-Care/Home Management Frequency of Treatment: 1-2 X day, as tolerated Duration of Treatment: 2-5 days Anticipated Discharge Destination: Home Treatment Diagnosis (ICD 10 Codes): Muscle weakness M62.81, Z74.1 Need help with self cares. Has the Physician been added for Co-signature?: Yes
[2020-08-27] MEDS ORDERED: LASIX IVP STA (17:02)
[2020-08-27] MEDS ORDERED: HUMALOG SUBCUT SCH (17:30)
[2020-08-27] MEDS: REQUIP PO SCH (20:30)
[2020-08-27] MEDS: ZOCOR PO SCH (20:30)
[2020-08-27] MEDS: LEVEMIR SUBCUT SCH (20:31)
[2020-08-27] MEDS ORDERED: SOLU-MEDROL 40 MG IVP ONE (21:00)
[2020-08-28] MEDS: DUONEB NEB SCH ×3 (05:05→14:03)
[2020-08-28 05:37] LABS: BLOOD UREA NITROGEN 36.3 mg/dL (7-17); CALCIUM 8.75 mg/dL (8.4-10.2); CARBON DIOXIDE 39.9 mmol/L (22-30.0); CHLORIDE 90.2 mmol/L (98-107); CREATININE 0.57 mg/dL (0.60-1.30); GLUCOSE 260.6 mg/dL (74-106); POTASSIUM 4.98 mmol/L (3.5-5.1); SODIUM 133.3 mmol/L (134.5-145)
[2020-08-28] MEDS: NEURONTIN PO SCH ×2 (06:00→13:51)
[2020-08-28] MEDS: PROTONIX PO SCH (06:01)
[2020-08-28] MEDS: TRADJENTA PO SCH (08:10)
[2020-08-28] MEDS: CEFTIN PO SCH (08:10)
[2020-08-28] MEDS: PROZAC PO SCH (08:10)
[2020-08-28] MEDS: FERROUS SULFATE PO SCH (08:10)
[2020-08-28] MEDS: VITAMIN D PO SCH (08:11)
[2020-08-28] MEDS: COLACE PO SCH (08:11)
[2020-08-28] MEDS: MIRALAX PO SCH (08:13)
[2020-08-28] MEDS: SYMBICORT 160-4.5 MCG INHALER IH SCH (08:13)
[2020-08-28] MEDS: HUMALOG SUBCUT SCH ×2 (08:14→11:46)
[2020-08-28] MEDS ORDERED: MICRO-K CAP PO SCH (08:30)
[2020-08-28] MEDS ORDERED: PREDNISONE PO SCH (08:30)
[2020-08-28 14:32] VITALS: BP 141/63; TEMP 97.8
== END 2020-08-28 15:16 | disposition home or self-care (01) | DRG 293 ==
LOC: MEDSURG A 15:04
PROVIDERS: ADMIT Family Medicine; ATTEND Family Medicine

== ENCOUNTER 2020-12-26 13:07 | Observation (INO) ==
[2020-12-26 13:44] LABS: BASOPHILS # (AUTO) 0.1 K/uL (0-0.2); BASOPHILS % (AUTO) 0.7 % (0.0-3.0); EOSINOPHILS # (AUTO) 0.2 K/ul (0.0-0.7); HEMATOCRIT 23.8 % (37.0-47.0); HEMOGLOBIN 6.5 g/dl (12.0-16.0); IMMATURE GRANULOCYTE # (AUTO) 0.1 (0.0-1.0); IMMATURE GRANULOCYTE % (AUTO) 0.6 % (0.0-5.0); LYMPHOCYTES # (AUTO) 1.4 K/uL (0.60-3.4); LYMPHOCYTES % (AUTO) 16.7 (10.0-50.0); MEAN CORPUSCULAR HEMOGLOBIN 26.1 pg (27.0-31.0); MEAN CORPUSCULAR HGB CONC 27.3 (31.8-35.4); MEAN CORPUSCULAR VOLUME 95.6 fl (81.0-99.0); MONOCYTES # (AUTO) 0.7 K/uL (0.4-2.0); PLATELET COUNT 235 10^3/uL (140-440); RDW COEFFICIENT OF VARIATION 16.6 % (11.6-14.8); RED BLOOD COUNT 2.49 10^6/ul (4.20-5.40); WHITE BLOOD COUNT 8.39 K/ul (4.6-10.2)
[2020-12-26] MEDS ORDERED: VENTOLIN HFA (PER PUFF-WITH SPACER) IH ONE (13:48)
[2020-12-26] MEDS ORDERED: SOLU-MEDROL 125 MG IVP ONE (13:48)
[2020-12-26] MEDS ORDERED: LASIX IVP ONE (13:48)
[2020-12-26] MEDS ORDERED: SPIRIVA IH ONE (13:52)
[2020-12-26 13:57] LABS: ALBUMIN 3.4 g/dL (3.5-5.0); BILIRUBIN,TOTAL 0.3 mg/dL (0.2-1.3); CALCIUM 8.2 mg/dL (8.4-10.2); CREATININE 0.8 mg/dL (0.60-1.30); POTASSIUM 3.7 mmol/L (3.5-5.1); TOTAL PROTEIN 6.6 g/dL (6.3-8.2)
[2020-12-26 14:10] LABS: ANISOCYTOSIS NOT PRESENT (NOT PRESENT); HYPOCHROMASIA 3+ (NOT PRESENT)
[2020-12-26 14:17] LABS: ABG O2 HGB 91.9 % (95-100); ABG PH 7.39 (7.35-7.45); BEecf 19.2 (-2.0-3.0); COHb 2.9 (0.5-1.5); HCO3 44.2 (21-28); MetHb 1.3 (0-1.5); TCO2 46.4 (19-24); sO2 92.5 % (94-98); tHb 6.9 g/dl (11.7-17.4)
[2020-12-26 14:30] LABS: BORDETELLA PARAPERTUSSIS (PCR) NOT DETECTED (NOT DETECT); BORDETELLA PERTUSSIS (PCR) NOT DETECTED (NOT DETECT); CHLAMYDIA PNEUMONIAE (PCR) NOT DETECTED (NOT DETECT); CORONAVIRUS 229E (PCR) NOT DETECTED (NOT DETECT); CORONAVIRUS HKU1 (PCR) NOT DETECTED (NOT DETECT); CORONAVIRUS NL63 (PCR) NOT DETECTED (NOT DETECT); CORONAVIRUS OC43 (PCR) NOT DETECTED (NOT DETECT); HUMAN METAPNEUMOVIRUS (PCR) NOT DETECTED (NOT DETECT); HUMAN RHINOVIRUS/ENTEROV (PCR) NOT DETECTED (NOT DETECT); INFLUENZA B (PCR) NOT DETECTED (NOT DETECT); MYCOPLASMA PNEUMONIAE (PCR) NOT DETECTED (NOT DETECT); PARAINFLUENZA VIRUS 1 (PCR) NOT DETECTED (NOT DETECT); PARAINFLUENZA VIRUS 2 (PCR) NOT DETECTED (NOT DETECT); PARAINFLUENZA VIRUS 3 (PCR) NOT DETECTED (NOT DETECT); PARAINFLUENZA VIRUS 4 (PCR) NOT DETECTED (NOT DETECT); RESPIRATORY SYNCYTIAL V (PCR) NOT DETECTED (NOT DETECT); SARS_COV_2 (PCR) NOT DETECTED (NOT DETECT)
[2020-12-26 15:17] LABS: ADENOVIRUS (PCR) NOT DETECTED (NOT DETECT)
--- NOTE | 2020-12-26 16:45 | ED.PDOC ---
General ED Provider: Dr. LUIS MAURO MD Chief Complaint: Abnormal Labs Stated Complaint: pt has increasing weakness x several days. no acute blood loss Time Seen by Provider: 12/26/20 13:13 Mode of Arrival: Wheelchair Information Source: Patient Exam Limitations: No limitations Primary Care Provider: WINSTON SUN Nursing and Triage Documentation Reviewed and Agree: Yes Does patient meet sepsis criteria?: No System Inflammatory Response Syndrome: Not Applicable Sepsis Protocol: For patient's 13 years and over: Temp is 96.8 and below OR 101 and greater Pulse >90 BPM Resp >20/minute Acutely Altered Mental Status Are patient's symptoms suggestive of a new infection, such as: -Pneumonia -Skin, Soft Tissue -Endocarditis -UTI -Bone, Joint Infection -Implantable Device -Acute Abdominal Infection -Wound Infection -Meningitis -Blood Stream Catheter Infection -Unknown Review of Systems Review Of Systems Constitutional: Reports Weakness Eyes: Reports No symptoms Ears, Nose, Mouth, Throat: Reports No symptoms Respiratory: Reports No symptoms Cardiac: Reports No symptoms GI: Reports No symptoms : Reports No symptoms Musculoskeletal: Reports No symptoms Skin: Reports No symptoms Neurological: Reports No symptoms Endocrine: Reports No symptoms Hematologic/Lymphatic: Reports No symptoms All Other Systems: Reviewed and Negative [facility] Medical History Anemia Anemia Asthma Cataracts, bilateral CHF (congestive heart failure) Chronic headaches COPD (chronic obstructive pulmonary disease) Coronary artery disease CVA (cerebral vascular accident) Depression Diabetes mellitus, type 2 Diverticulosis Gall stones GERD (gastroesophageal reflux disease) Heart attack Hiatal hernia History of prior pregnancies Hyperlipidemia Neuropathy Ovarian cyst Palpitations Pneumonia Renal disease Rheumatoid arthritis RLS (restless legs syndrome) Sleep apnea TIA (transient ischemic attack) Ulcer Family History Mother Cardiac disorder FATHER Cardiac disorder FATHER Thyroid disease Mother Thyroid disease Social History History of recent travel: No Surgical History H/O eye surgery H/O: hysterectomy Female Reproductive History Menstrual Hx Hysterectomy: Yes Hx Tubal Ligation: No Physical Exam Physical Exam Appearance: Reports Obese Ill-appearing: None Pain Distress: None Eyes: Reports ALFRED, EOMI and Conjunctiva clear ENT: Reports Ears normal, Nose normal and Oropharynx normal Neck: Supple Respiratory: Reports Airway patent, Breath sounds clear and Breath sounds equal Cardiovascular: Reports RRR, Pulses normal, No rub and No murmur GI/: Reports Soft, Nontender, No masses and Bowel sounds normal Musculoskeletal: Reports ROM intact and Edema (mild leg edema.) Skin: Reports Warm, Dry and Normal color Neurological: Reports Sensation intact, Motor intact, Reflexes intact, Cranial nerves intact, Alert and Oriented Psychiatric: Reports Affect appropriate and Mood appropriate Interpretation Radiology Interpretation Radiology Interpretation By: Radiologist Re-Evaluation Re-Evaluation Time of Re-Evaluation: 14:08 Status: Unchanged Vital Signs Stable: Yes Pain Level: 0 Lungs: Clear Skin: Warm and Dry Neuro: Alert and Oriented X3 CV: RRR Critical Care Note Critical Care Note Total Critical Care Time (mins): 0 Course Course Hematology/Chemistry: 12/26/20 13:42 12/26/20 13:42 Orders, Labs, Meds: Lab Review 12/26/20 12/26/20 12/26/20 13:42 13:42 13:42 WBC 8.39 RBC 2.49 L Hgb 6.5 L Hct 23.8 L MCV 95.6 MCH 26.1 L MCHC 27.3 L RDW Coeff of Chuy 16.6 H Plt Count 235 Immature Gran % (Auto) 0.6 Neut % (Auto) 72.0 Lymph % (Auto) 16.7 [place] % (Auto) 8.0 Eos % (Auto) 2.0 Baso % (Auto) 0.7 Neut # (Auto) 6.0 Lymph # (Auto) 1.4 [place] # (Auto) 0.7 Eos # (Auto) 0.2 Baso # (Auto) 0.1 Immature Gran # (Auto) 0.1 Hypochromasia 3+ Anisocytosis Not present Puncture Site Base Excess O2 Saturation ABG pH ABG pCO2 ABG pO2 ABG HCO3 ABG Total CO2 Frankie Test Hemoglobin Oxyhemoglobin Carboxyhemoglobin Total Hemoglobin O2 Delivery Device Oxygen Liter Flow Sodium 142.0 Potassium 3.70 Chloride 98.0 Carbon Dioxide 40.0 H Anion Gap 7.70 BUN 28.0 H Creatinine 0.80 Estimated GFR (MDRD) 69.00 BUN/Creatinine Ratio 35.00 Glucose 205.0 H Lactic Acid Calcium 8.20 L Total Bilirubin 0.30 AST 20.0 ALT 10.0 Alkaline Phosphatase 81.0 Troponin I < 0.012 NT-Pro-B Natriuret Pep 407.000 H Total Protein 6.60 Albumin 3.40 L Globulin 3.20 Albumin/Globulin Ratio 1.06 Adenovirus (PCR) B. pertussis DNA (PCR) B.parapertussis DNA PCR C. pneumoniae DNA (PCR) Coronavirus OC43 (PCR) Coronavirus HKU1 (PCR) Coronavirus 229E (PCR) Coronavirus NL63 (PCR) Human Metapneumovir PCR Influenza Type A (PCR) Influenza B (RT-PCR) M. pneumoniae (PCR) Parainfluenza 1 (PCR) Parainfluenza 2 (PCR) Parainfluenza 3 (PCR) Parainfluenza 4 (PCR) RSV (PCR) Entero/Rhino (PCR) SARS-CoV-2 (PCR) 12/26/20 12/26/20 12/26/20 14:06 14:10 14:24 WBC RBC Hgb Hct MCV MCH MCHC RDW Coeff of Chuy Plt Count Immature Gran % (Auto) Neut % (Auto) Lymph % (Auto) [place] % (Auto) Eos % (Auto) Baso % (Auto) Neut # (Auto) Lymph # (Auto) [place] # (Auto) Eos # (Auto) Baso # (Auto) Immature Gran # (Auto) Hypochromasia Anisocytosis Puncture Site R rad Base Excess 19.2 H O2 Saturation 92.5 L ABG pH 7.39 ABG pCO2 73.0 H ABG pO2 66.0 L ABG HCO3 44.2 H ABG Total CO2 46.4 H Frankie Test Y Hemoglobin 1.3 Oxyhemoglobin 91.9 L Carboxyhemoglobin 2.9 H Total Hemoglobin 6.9 L O2 Delivery Device Cannula Oxygen Liter Flow 3.00 Sodium Potassium Chloride Carbon Dioxide Anion Gap BUN Creatinine Estimated GFR (MDRD) BUN/Creatinine Ratio Glucose Lactic Acid 0.87 Calcium Total Bilirubin AST ALT Alkaline Phosphatase Troponin I NT-Pro-B Natriuret Pep Total Protein Albumin Globulin Albumin/Globulin Ratio Adenovirus (PCR) Not detected B. pertussis DNA (PCR) Not detected B.parapertussis DNA PCR Not detected C. pneumoniae DNA (PCR) Not detected Coronavirus OC43 (PCR) Not detected Coronavirus HKU1 (PCR) Not detected Coronavirus 229E (PCR) Not detected Coronavirus NL63 (PCR) Not detected Human Metapneumovir PCR Not detected Influenza Type A (PCR) Not detected Influenza B (RT-PCR) Not detected M. pneumoniae (PCR) Not detected Parainfluenza 1 (PCR) Not detected Parainfluenza 2 (PCR) Not detected Parainfluenza 3 (PCR) Not detected Parainfluenza 4 (PCR) Not detected RSV (PCR) Not detected Entero/Rhino (PCR) Not detected SARS-CoV-2 (PCR) Not detected Orders Category Date Time Status ABG DRAW REQUEST Stat CARDIO 12/26/20 13:50 Completed EKG-(ED ONLY) Stat CARDIO 12/26/20 13:48 Completed METERED DOSE INHALATION Routine CARDIO 12/26/20 13:51 Completed ABG COOX Stat LAB 12/26/20 14:10 Completed CBC W/ AUTO DIFF Stat LAB 12/26/20 13:42 Completed COMPREHENSIVE METABOLIC PANEL Stat LAB 12/26/20 13:42 Completed LACTIC ACID Stat LAB 12/26/20 14:06 Completed NT-PROBNP Stat LAB 12/26/20 13:42 Completed PACKED CELLS Stat LAB 12/26/20 15:53 Received RBC MORPHOLOGY Stat LAB 12/26/20 13:42 Completed RESPIRATORY PANEL 2.1 (PCR) Stat LAB 12/26/20 14:24 Completed TROPONIN I Stat LAB 12/26/20 13:42 Completed TYPE AND SCREEN Stat LAB 12/26/20 15:53 Received URINALYSIS C & S IF INDICATED Stat LAB 12/26/20 13:28 Uncollected Albuterol Inhaler(with Spacer) [Ventolin Hfa (Per Puff- MEDS 12/26/20 13:48 Discontinued with Spacer)] 2 puff IH ONCE ONE Furosemide [Lasix] MEDS 12/26/20 13:48 Discontinued 80 mg IVP ONCE ONE Methylprednisolone Sod Succ/Pf [Solu-Medrol 125 mg] MEDS 12/26/20 13:48 Discontinued 125 mg IVP ONCE ONE Tiotropium Dickey [Spiriva] MEDS 12/26/20 13:52 Discontinued 1 cap IH ONCE ONE Medications Discontinued Medications Generic Name Dose Route Start Last Admin Trade Name Freq PRN Reason Stop Dose Admin Albuterol Sulfate 2 puff 12/26/20 13:48 12/26/20 14:24 Albuterol Sulfate (Ventolin Hfa) 18 Gm 1 Puff With Spacer IH 12/26/20 13:49 2 puff ONCE ONE Administration Furosemide 80 mg 12/26/20 13:48 12/26/20 15:13 Furosemide Inj 100 Mg/10 Ml Vial IVP 12/26/20 13:49 80 mg ONCE ONE Administration Methylprednisolone Sodium Succinate 125 mg 12/26/20 13:48 12/26/20 15:19 Methylprednisolone Sod Succ/Pf 125 Mg/2 Ml Vial IVP 12/26/20 13:49 125 mg ONCE ONE Administration Tiotropium Dickey 1 cap 12/26/20 13:52 12/26/20 16:14 Tiotropium Dickey 18 Mcg Cap.W.Dev IH 12/26/20 13:53 Not Given ONCE ONE Vital Signs: Temp Pulse Resp BP Pulse Ox 12/26/20 13:11 98.5 F 95 H 20 129/78 99 Discharge Plan Discharge Patient Disposition: PLACED OBSERVATION Discharge Problem: Anemia Qualifiers: Anemia type: unspecified type Qualified Code(s): D64.9 - Anemia, unspecified Prescriptions: No Action budesonide-formoterol [Symbicort] 160-4.5 mcg/actuation Hfa Aerosol Inhaler 2 puff inhalation BID RF: 0 Hemorrhoid Ointment 1 applic DE TID PRN (Reason: Itching) Qty: 1 RF: 0 prednisone 20 mg Tablet 20 mg PO DAILY RF: 0 furosemide [Lasix] 20 mg Tablet 20 mg PO DAILY Qty: 1 RF: 0 ropinirole [Requip] 3 mg Tablet 3 mg PO BEDTIME Qty: 1 RF: 0 Saccharomyces boulardii [Florastor] 250 mg Capsule 250 mg PO DAILY RF: 0 glyburide 5 mg Tablet 5 mg PO BID RF: 0 Levemir FlexTouch U-100 Insuln 100 unit/mL (3 mL) insulin pen 30 unit SUBCUT QPM RF: 0 simvastatin [Zocor] 40 MG tablet 40 mg PO BEDTIME RF: 0 gabapentin [Neurontin] 100 MG capsule 100 mg PO Q8H RF: 0 Tradjenta 5 MG tablet 5 mg PO DAILY RF: 0 ipratropium-albuterol 1 VIAL solution for nebulization 1 vial NEB RTQID RF: 0 ferrous sulfate [Iron (ferrous sulfate)] 325 mg (65 mg iron) Tablet 325 mg PO DAILY RF: 0 acetaminophen [Tylenol] 325 mg tablet 650 mg PO Q6H PRN (Reason: Mild pain or fever >101) RF: 0 cholecalciferol (vitamin D3) [Vitamin D3] 25 mcg (1,000 unit) capsule 25 mcg PO DAILY RF: 0 docusate sodium [Colace] 100 mg capsule 100 mg PO DAILY RF: 0 fluoxetine 40 mg Capsule 40 mg PO BID RF: 0 insulin lispro [Humalog U-100 Insulin] 100 unit/mL Solution 2 - 9 unit subcut TIDAC RF: 0 pantoprazole [Protonix] 40 mg tablet,delayed release (DR/EC) 40 mg PO QDAC RF: 0 dextrose [Glutose-15] 40 % Gel 37.5 g PO Q15MIN PRNRF: 0 cefuroxime axetil 250 mg tablet 250 mg PO BID Qty: 20 RF: 0 ED Provider: LUIS MAURO Condition: Serious Physician Progress Note: []Pt was d/w Dr Sun: for Observation admission. He will ask Dr Manzo to review the pt on 12/27/2020.
[2020-12-26] MEDS ORDERED: TYLENOL PO PRN (17:23)
[2020-12-26 18:12] LABS: BILIRUBIN,URINE Negative (NEGATIVE); CLARITY,URINE Clear (CLEAR); COLOR,URINE Yellow (YELLOW); GLUCOSE, URINE (UA) Negative (NEGATIVE); KETONES,URINE Negative (NEGATIVE); LEUKOCYTE ESTERASE ,URINE Negative (NEGATIVE); NITRITE,URINE Negative (NEGATIVE); PROTEIN,URINE Negative (NEGATIVE); URINE, BLOOD Negative (NEGATIVE); UROBILINOGEN,URINE 0.2 (0.2)
[2020-12-26 21:54] VITALS: BMI 27.9
[2020-12-26] MEDS: DUONEB NEB SCH (22:20)
[2020-12-26] MEDS ORDERED: PREPARATION H OINTMENT RC PRN (22:35)
[2020-12-26] MEDS ORDERED: GLUTOSE 15 PO PRN (22:35)
[2020-12-26] MEDS ORDERED: LEVEMIR SUBCUT ONE (23:30)
[2020-12-26] MEDS: DIABETA PO SCH (23:37)
[2020-12-26] MEDS: REQUIP PO SCH (23:37)
[2020-12-26] MEDS: SYMBICORT 160-4.5 MCG INHALER IH SCH (23:37)
[2020-12-26] MEDS: NEURONTIN PO SCH (23:58)
[2020-12-27] MEDS: DUONEB NEB SCH ×4 (04:51→20:40)
[2020-12-27] MEDS ORDERED: DUONEB NEB SCH (06:00)
[2020-12-27] MEDS: HUMALOG SUBCUT SCH ×4 (06:07→18:22)
[2020-12-27] MEDS: PROTONIX PO SCH (06:08)
[2020-12-27 07:55] LABS: BASOPHILS % (AUTO) 0.4 % (0.0-3.0); HEMATOCRIT 28.3 % (37.0-47.0); HEMOGLOBIN 8.5 g/dl (12.0-16.0); IMMATURE GRANULOCYTE # (AUTO) 0.1 (0.0-1.0); IMMATURE GRANULOCYTE % (AUTO) 0.6 % (0.0-5.0); LYMPHOCYTES # (AUTO) 1.3 K/uL (0.60-3.4); LYMPHOCYTES % (AUTO) 14.7 (10.0-50.0); MEAN CORPUSCULAR HEMOGLOBIN 27.6 pg (27.0-31.0); MEAN CORPUSCULAR VOLUME 91.9 fl (81.0-99.0); MONOCYTES # (AUTO) 0.7 K/uL (0.4-2.0); MONOCYTES % (AUTO) 8.4 (0-10); NEUTROPHILS # (AUTO) 6.4 K/ul (2.0-6.9); NEUTROPHILS % (AUTO) 75.9 % (42.2-75.2); PLATELET COUNT 240 10^3/uL (140-440); RDW COEFFICIENT OF VARIATION 15.6 % (11.6-14.8); RED BLOOD COUNT 3.08 10^6/ul (4.20-5.40); WHITE BLOOD COUNT 8.48 K/ul (4.6-10.2)
[2020-12-27 08:07] LABS: ALANINE AMINOTRANSFERASE 21.6 U/L (0-35); ALBUMIN 3.51 g/dL (3.5-5.0); ALKALINE PHOSPHATASE 77.1 U/L (53-141); ASPARTATE AMINO TRANSFERASE 28.5 U/L (14-36); BILIRUBIN,TOTAL 0.29 mg/dL (0.2-1.3); BLOOD UREA NITROGEN 33.9 mg/dL (7-17); CALCIUM 8.88 mg/dL (8.4-10.2); CHLORIDE 96.5 mmol/L (98-107); CREATININE 0.87 mg/dL (0.60-1.30); GLUCOSE 179.9 mg/dL (74-106); POTASSIUM 3.78 mmol/L (3.5-5.1); SODIUM 144.5 mmol/L (134.5-145); TOTAL PROTEIN 6.48 g/dL (6.3-8.2)
[2020-12-27 08:17] LABS: CARBON DIOXIDE 40.8 mmol/L (22-30.0)
[2020-12-27] MEDS: LASIX TAB PO SCH (09:15)
[2020-12-27] MEDS: PROZAC PO SCH ×2 (09:15→20:41)
[2020-12-27] MEDS: VITAMIN D PO SCH (09:15)
[2020-12-27] MEDS: FLORASTOR PO SCH (09:15)
[2020-12-27] MEDS: COLACE PO SCH ×2 (09:15→09:32)
[2020-12-27] MEDS: NEURONTIN PO SCH ×3 (09:15→22:02)
[2020-12-27] MEDS: TRADJENTA PO SCH (09:15)
[2020-12-27] MEDS: FERROUS SULFATE PO SCH (09:15)
[2020-12-27] MEDS: PREDNISONE PO SCH (09:15)
[2020-12-27] MEDS: DIABETA PO SCH ×2 (09:15→20:40)
[2020-12-27] MEDS: SYMBICORT 160-4.5 MCG INHALER IH SCH ×2 (09:16→20:46)
[2020-12-27] MEDS ORDERED: LEVEMIR SUBCUT SCH (17:00)
[2020-12-27] MEDS: ZOCOR PO SCH (20:40)
[2020-12-27] MEDS: REQUIP PO SCH (20:40)
[2020-12-27] MEDS: LEVEMIR SUBCUT SCH (20:41)
[2020-12-28] MEDS: DUONEB NEB SCH ×4 (04:27→20:15)
[2020-12-28] MEDS: LASIX TAB PO SCH (06:08)
[2020-12-28] MEDS: PROTONIX PO SCH (06:08)
[2020-12-28] MEDS: NEURONTIN PO SCH ×3 (06:20→20:19)
[2020-12-28 06:21] LABS: BASOPHILS # (AUTO) 0.1 K/uL (0-0.2); BASOPHILS % (AUTO) 0.8 % (0.0-3.0); EOSINOPHILS # (AUTO) 0.1 K/ul (0.0-0.7); EOSINOPHILS % (AUTO) 1.2 % (0.0-7.0); HEMATOCRIT 27.8 % (37.0-47.0); HEMOGLOBIN 8.2 g/dl (12.0-16.0); IMMATURE GRANULOCYTE # (AUTO) 0.1 (0.0-1.0); IMMATURE GRANULOCYTE % (AUTO) 0.5 % (0.0-5.0); LYMPHOCYTES # (AUTO) 1.7 K/uL (0.60-3.4); MEAN CORPUSCULAR HEMOGLOBIN 27.6 pg (27.0-31.0); MEAN CORPUSCULAR HGB CONC 29.5 (31.8-35.4); MEAN CORPUSCULAR VOLUME 93.6 fl (81.0-99.0); MONOCYTES # (AUTO) 0.7 K/uL (0.4-2.0); MONOCYTES % (AUTO) 7.6 (0-10); NEUTROPHILS # (AUTO) 6.7 K/ul (2.0-6.9); NEUTROPHILS % (AUTO) 71.9 % (42.2-75.2); PLATELET COUNT 235 10^3/uL (140-440); RDW COEFFICIENT OF VARIATION 15.4 % (11.6-14.8); RED BLOOD COUNT 2.97 10^6/ul (4.20-5.40); WHITE BLOOD COUNT 9.32 K/ul (4.6-10.2)
[2020-12-28 06:32] LABS: ALANINE AMINOTRANSFERASE 16.5 U/L (0-35); ALBUMIN 3.37 g/dL (3.5-5.0); ALKALINE PHOSPHATASE 69.9 U/L (53-141); ASPARTATE AMINO TRANSFERASE 25.6 U/L (14-36); BILIRUBIN,TOTAL 0.17 mg/dL (0.2-1.3); BLOOD UREA NITROGEN 29.5 mg/dL (7-17); CALCIUM 8.72 mg/dL (8.4-10.2); CHLORIDE 95.3 mmol/L (98-107); CREATININE 0.76 mg/dL (0.60-1.30); GLUCOSE 67.5 mg/dL (74-106); POTASSIUM 3.65 mmol/L (3.5-5.1); SODIUM 142.7 mmol/L (134.5-145); TOTAL PROTEIN 6.29 g/dL (6.3-8.2)
[2020-12-28] MEDS: HUMALOG SUBCUT SCH ×3 (06:42→17:12)
[2020-12-28 06:47] LABS: CARBON DIOXIDE 42.3 mmol/L (22-30.0)
[2020-12-28] MEDS: SYMBICORT 160-4.5 MCG INHALER IH SCH ×2 (08:57→20:21)
[2020-12-28] MEDS: FLORASTOR PO SCH (08:58)
[2020-12-28] MEDS: TRADJENTA PO SCH (08:59)
[2020-12-28] MEDS: PROZAC PO SCH ×2 (08:59→20:19)
[2020-12-28] MEDS: PREDNISONE PO SCH (08:59)
[2020-12-28] MEDS: FERROUS SULFATE PO SCH (08:59)
[2020-12-28] MEDS: DIABETA PO SCH ×2 (08:59→20:19)
[2020-12-28] MEDS: VITAMIN D PO SCH (08:59)
[2020-12-28] MEDS: COLACE PO SCH (09:03)
[2020-12-28] MEDS: REQUIP PO SCH (20:19)
[2020-12-28] MEDS: ZOCOR PO SCH (20:19)
[2020-12-28] MEDS: LEVEMIR SUBCUT SCH (20:20)
[2020-12-29] MEDS: DUONEB NEB SCH ×4 (04:25→19:30)
[2020-12-29 05:30] LABS: BASOPHILS # (AUTO) 0.1 K/uL (0-0.2); BASOPHILS % (AUTO) 0.7 % (0.0-3.0); EOSINOPHILS # (AUTO) 0.1 K/ul (0.0-0.7); EOSINOPHILS % (AUTO) 1.3 % (0.0-7.0); HEMATOCRIT 29.2 % (37.0-47.0); HEMOGLOBIN 8.4 g/dl (12.0-16.0); IMMATURE GRANULOCYTE # (AUTO) 0.1 (0.0-1.0); IMMATURE GRANULOCYTE % (AUTO) 0.6 % (0.0-5.0); LYMPHOCYTES % (AUTO) 21.1 (10.0-50.0); MEAN CORPUSCULAR HGB CONC 28.8 (31.8-35.4); MEAN CORPUSCULAR VOLUME 93.9 fl (81.0-99.0); MONOCYTES # (AUTO) 0.9 K/uL (0.4-2.0); MONOCYTES % (AUTO) 9.5 (0-10); NEUTROPHILS # (AUTO) 6.4 K/ul (2.0-6.9); NEUTROPHILS % (AUTO) 66.8 % (42.2-75.2); PLATELET COUNT 278 10^3/uL (140-440); RDW COEFFICIENT OF VARIATION 14.9 % (11.6-14.8); RED BLOOD COUNT 3.11 10^6/ul (4.20-5.40); WHITE BLOOD COUNT 9.59 K/ul (4.6-10.2)
[2020-12-29] MEDS: NEURONTIN PO SCH ×3 (05:40→20:57)
[2020-12-29] MEDS: PROTONIX PO SCH (05:40)
[2020-12-29] MEDS: LASIX TAB PO SCH (05:40)
[2020-12-29 05:42] LABS: ALANINE AMINOTRANSFERASE 18.7 U/L (0-35); ALBUMIN 3.32 g/dL (3.5-5.0); ALKALINE PHOSPHATASE 78.7 U/L (53-141); BILIRUBIN,TOTAL 0.14 mg/dL (0.2-1.3); BLOOD UREA NITROGEN 25.7 mg/dL (7-17); CALCIUM 8.45 mg/dL (8.4-10.2); CHLORIDE 94.8 mmol/L (98-107); CREATININE 0.82 mg/dL (0.60-1.30); GLUCOSE 67.5 mg/dL (74-106); POTASSIUM 3.69 mmol/L (3.5-5.1); TOTAL PROTEIN 6.1 g/dL (6.3-8.2)
[2020-12-29 06:20] LABS: CARBON DIOXIDE 43.1 mmol/L (22-30.0)
[2020-12-29 06:48] LABS: FOLATE 12.1 ng/mL
[2020-12-29] MEDS: PREDNISONE PO SCH (09:00)
[2020-12-29] MEDS: TRADJENTA PO SCH (09:00)
[2020-12-29] MEDS: FLORASTOR PO SCH (09:00)
[2020-12-29] MEDS: VITAMIN D PO SCH (09:00)
[2020-12-29] MEDS: FERROUS SULFATE PO SCH (09:00)
[2020-12-29] MEDS: DIABETA PO SCH ×2 (09:01→20:42)
[2020-12-29] MEDS: PROZAC PO SCH ×2 (09:01→20:42)
[2020-12-29] MEDS: COLACE PO SCH (09:01)
[2020-12-29] MEDS: HUMALOG SUBCUT SCH ×3 (09:10→17:32)
[2020-12-29] MEDS: SYMBICORT 160-4.5 MCG INHALER IH SCH ×2 (11:55→20:43)
[2020-12-29] MEDS: LEVEMIR SUBCUT SCH (20:41)
[2020-12-29] MEDS: ZOCOR PO SCH (20:42)
[2020-12-29] MEDS: REQUIP PO SCH (20:42)
[2020-12-30] MEDS: DUONEB NEB SCH ×4 (04:50→20:10)
[2020-12-30] MEDS: LASIX TAB PO SCH (05:37)
[2020-12-30] MEDS: PROTONIX PO SCH (05:37)
[2020-12-30] MEDS: NEURONTIN PO SCH ×3 (05:38→20:35)
[2020-12-30] MEDS: DIABETA PO SCH ×2 (08:53→20:34)
[2020-12-30] MEDS: PROZAC PO SCH ×2 (08:54→20:34)
[2020-12-30] MEDS: FERROUS SULFATE PO SCH (08:54)
[2020-12-30] MEDS: FLORASTOR PO SCH (08:54)
[2020-12-30] MEDS: TRADJENTA PO SCH (08:54)
[2020-12-30] MEDS: COLACE PO SCH ×2 (08:54→08:59)
[2020-12-30] MEDS: PREDNISONE PO SCH (08:54)
[2020-12-30] MEDS: VITAMIN D PO SCH (08:54)
[2020-12-30] MEDS: SYMBICORT 160-4.5 MCG INHALER IH SCH (08:55)
[2020-12-30] MEDS: HUMALOG SUBCUT SCH ×3 (08:59→17:28)
[2020-12-30] MEDS ORDERED: INJECTAFER 750 MG in SODIUM CHLORIDE 100ML 100 ML IV ONE (09:30)
--- NOTE | 2020-12-30 14:36 | DI ---
EXAM: CHEST RADIOGRAPH (2 VIEW) TECHNIQUE: AP and Lateral Chest Radiographs. HISTORY: Cough. Chronic obstructive pulmonary disease. COMPARISON: Chest radiograph 08/25/2020 FINDINGS: Lines, Tubes, Devices: None. Lungs and Pleura: Slight interval increase in size of a small right pleural effusion with overlying lower lobe opacity. Left lung is clear. No pneumothorax. Cardiomediastinum: Borderline enlarged cardiomediastinal silhouette. Mild aortic calcifications. Bones/Soft Tissues: Degenerative changes of the spine. ACDF hardware. Small rounded calcification a long the greater tuberosity of the left humerus likely due to chronic calcific rotator cuff tendinosi s. No soft tissue abnormality. Upper Abdomen: Within normal limits. IMPRESSION: Slight interval increase in size of a small right pleural effusion with right lower lobe atelectasis.
[2020-12-30] MEDS: REQUIP PO SCH (20:34)
[2020-12-30] MEDS: LEVEMIR SUBCUT SCH (20:35)
[2020-12-30] MEDS: ZOCOR PO SCH (20:35)
[2020-12-31] MEDS: NEURONTIN PO SCH ×3 (04:41→20:20)
[2020-12-31] MEDS: DUONEB NEB SCH ×4 (04:50→20:21)
[2020-12-31] MEDS: LASIX TAB PO SCH (05:40)
[2020-12-31] MEDS: PROTONIX PO SCH (05:41)
[2020-12-31] MEDS: SYMBICORT 160-4.5 MCG INHALER IH SCH ×3 (07:58→20:24)
[2020-12-31] MEDS: TRADJENTA PO SCH (10:16)
[2020-12-31] MEDS: VITAMIN D PO SCH (10:16)
[2020-12-31] MEDS: PREDNISONE PO SCH (10:16)
[2020-12-31] MEDS: FLORASTOR PO SCH (10:16)
[2020-12-31] MEDS: PROZAC PO SCH ×2 (10:16→20:20)
[2020-12-31] MEDS: DIABETA PO SCH ×2 (10:16→20:20)
[2020-12-31] MEDS: FERROUS SULFATE PO SCH (10:17)
[2020-12-31] MEDS: COLACE PO SCH (10:17)
[2020-12-31] MEDS: HUMALOG SUBCUT SCH ×3 (10:33→17:32)
[2020-12-31] MEDS ORDERED: ZOFRAN TAB PO PRN (10:37)
[2020-12-31] MEDS: REQUIP PO SCH (20:20)
[2020-12-31] MEDS: ZOCOR PO SCH (20:20)
[2020-12-31] MEDS: LEVEMIR SUBCUT SCH (21:14)
[2021-01-01] MEDS: DUONEB NEB SCH ×3 (04:39→13:58)
[2021-01-01] MEDS: LASIX TAB PO SCH (05:39)
[2021-01-01] MEDS: NEURONTIN PO SCH ×2 (05:39→12:55)
[2021-01-01] MEDS: PROTONIX PO SCH (05:39)
[2021-01-01] MEDS: TRADJENTA PO SCH (09:46)
[2021-01-01] MEDS: PROZAC PO SCH (09:46)
[2021-01-01] MEDS: FLORASTOR PO SCH (09:46)
[2021-01-01] MEDS: PREDNISONE PO SCH (09:46)
[2021-01-01] MEDS: COLACE PO SCH ×2 (09:46→09:56)
[2021-01-01] MEDS: FERROUS SULFATE PO SCH (09:46)
[2021-01-01] MEDS: VITAMIN D PO SCH (09:46)
[2021-01-01] MEDS: DIABETA PO SCH (09:46)
[2021-01-01] MEDS: SYMBICORT 160-4.5 MCG INHALER IH SCH (09:47)
[2021-01-01] MEDS: HUMALOG SUBCUT SCH ×2 (10:19→12:55)
[2021-01-01 14:30] VITALS: BP 132/51; TEMP 98.2
== END 2021-01-01 16:20 | disposition home health service (06) ==
LOC: MEDSURG A 13:07 → ED 13:07 → MEDSURG A 20:40
PROVIDERS: ADMIT Family Medicine; ATTEND Family Medicine
DX: J44.1 Chronic obstructive pulmonary disease with (acute) exacerbation; I50.33 Acute on chronic diastolic (congestive) heart failure; Z20.822 Contact with and (suspected) exposure to COVID-19; D64.9 Anemia, unspecified; Z79.899 Other long term (current) drug therapy; R53.1 Weakness; R79.89 Other specified abnormal findings of blood chemistry; R05 Cough